=== PATIENT | female | born 1945 | race Caucasian/White ===

== ENCOUNTER 2016-09-10 13:10 | Inpatient (IN) | payer MEDICARE ==
[~2016-09-10] VITALS: Ht 165.1 cm; Wt 77.7 kg
[2016-09-10] VITALS (7 sets, daily range): BP systolic 127–160; BP diastolic 66–95
[2016-09-10] MEDS ORDERED: LABETALOL HCL 20 MG/4 ML VIAL ONE (13:31)
--- NOTE | 2016-09-10 13:34 | Diagnostic Imaging Report ---
INDICATION: Left-sided weakness and facial droop for one hour. DISCUSSION: Single portable upright view of the chest was obtained, comparison 11/24/2007. Underlying COPD is noted. Stable normal heart size. No focal consolidation, pleural fluid, or pneumothorax. No acute osseous abnormality. IMPRESSION: 1. Stable changes of COPD. Dictated by: Dictated on workstation # [id number]
[2016-09-10 13:38] LABS: BASOPHILS % (AUTO) 0 % (0-10); EOSINOPHILS # (AUTO) 0.1 10^3/uL (0.0-0.3); EOSINOPHILS % (AUTO) 1 % (0-10); LYMPHOCYTES # (AUTO) 4.1 X 10^3 (1.0-4.0); LYMPHOCYTES % (AUTO) 43 % (12-44); MEAN CORPUSCULAR HEMOGLOBIN 31 PG (25-34); MEAN CORPUSCULAR HGB CONC 34 G/DL (32-36); MEAN CORPUSCULAR VOLUME 91 FL (80-99); MEAN PLATELET VOLUME 9.9 FL (7.4-10.4); MONOCYTES # (AUTO) 0.5 X 10^3 (0.0-1.0); MONOCYTES % (AUTO) 6 % (0-12); NEUTROPHILS # (AUTO) 4.8 X 10^3 (1.8-7.8); NEUTROPHILS % (AUTO) 50 % (42-75); PLATELET COUNT 328 10^3/uL (130-400); RED BLOOD COUNT 4.49 10^6/uL (4.35-5.85); RED CELL DISTRIBUTION WIDTH 12.1 % (10.0-14.5); WHITE BLOOD COUNT 9.5 10^3/uL (4.3-11.0)
--- NOTE | 2016-09-10 13:40 | Diagnostic Imaging Report ---
EXAM: CT head. TECHNIQUE: Noncontrast axial images of the brain were obtained. INDICATION: Head and leg numbness. History of calcified tumor. No prior studies are available for comparison. FINDINGS: There is no intracranial hemorrhage and no brain edema. Patchy areas of periventricular and deep white matter hypodensities are seen compatible with chronic microvascular ischemic changes. There is an extra-axial calcified mass measuring 3.1 x 3.3 x 2.7 cm based on the tentorium slightly projecting into the posterior fossa and along the left occipital lobe with mild mass effect on the left occipital lobe and the left cerebellar hemisphere. No significant edema is identified suggestive of chronicity. No prior studies at our hospital for comparison are available. This is most likely related to a meningioma. No significant soft tissue component is identified with near-complete calcification of the lesion seen. There is evidence of prior surgery to the globes bilaterally. The calvarium and paranasal sinuses appear grossly unremarkable. IMPRESSION: 1. No intracranial hemorrhage. 2. A 3.3-cm calcified mass based on the tentorium with mass effect upon the left occipital lobe and the left cerebellar hemisphere without significant associated edema suggestive of chronicity. No prior studies are available for comparison in our system. Correlate with patient's history and possible outside studies. Dictated by: Dictated on workstation # [id number]
[2016-09-10 13:47] LABS: INR 0.9 (0.8-1.4); PROTHROMBIN TIME PATIENT 11.8 SEC (12.2-14.7)
[2016-09-10 13:57] LABS: ALANINE AMINOTRANSFERASE 16 U/L (0-55); ALBUMIN 3.8 G/DL (3.2-4.5); ANION GAP 13 MMOL/L (5-14); ASPARTATE AMINO TRANSFERASE 11 U/L (5-34); BILIRUBIN,TOTAL 0.4 MG/DL (0.1-1.0); BLOOD UREA NITROGEN 18 MG/DL (7-18); BUN/CREATININE RATIO 25; CALCIUM 9.3 MG/DL (8.5-10.1); CARBON DIOXIDE 22 MMOL/L (21-32); CHLORIDE 102 MMOL/L (98-107); CREATININE SERUM 0.73 MG/DL (0.60-1.30); GFR ESTIMATED > 60; GLUCOSE 119 MG/DL (70-105); POTASSIUM 3.6 MMOL/L (3.6-5.0); SODIUM 137 MMOL/L (135-145); TOTAL PROTEIN 6.8 G/DL (6.4-8.2)
[2016-09-10] MEDS ORDERED: LABETALOL HCL 20 MG/4 ML VIAL IV ONE ×2 (14:00→14:30)
[2016-09-10 14:03] LABS: TROPONIN I < 0.30 NG/ML (<0.30)
[2016-09-10] MEDS ORDERED: niCARdipine IV 50 MG in NS (IVPB) 230 ML IV SCH (14:30)
[2016-09-10] MEDS ORDERED: NS 100 ML (IVPB) BAG IV ONE (14:30)
[2016-09-10] MEDS ORDERED: IOHEXOL 350 MG/ML 100 ML (OMNIPAQUE 350) VIAL IV ONE (14:30)
[2016-09-10] MEDS ORDERED: ALTEPLASE 100 MG/VIAL (ACTIVASE) IV ONE (14:41)
--- NOTE | 2016-09-10 14:56 | ED Neurological Problem ---
General Chief Complaint: Neuro-Stroke Like Symptoms Stated Complaint: POSS STROKE Nursing Triage Note: L SIDED WEAKNESS AND FACIAL DROOP X1 HOUR. PT STATES SHE TOOK ASA 325MG GRADE RECORDER. Nursing Sepsis Screen: No Definite Risk Source: patient, family Exam Limitations: no limitations History of Present Illness Time seen by provider: 13:14 Initial Comments This delightful 71-year-old woman presents to emergency room with left-sided facial numbness and drooping and left upper extremity weakness and discoordination. Last known well time was approximately 12:15. At the time of my assessment NIH stroke score was one for left lower extremity weakness. Patient is markedly hypertensive with systolic blood pressures well over 200 and diastolic blood pressures well over 100. Patient reports a history of calcified meningioma identified many years ago and reportedly stable. Patient has had no neurologic problems until today. She reports recently having a URI and cough and has taken a Z-Brice. Allergies and Home Medications Allergies Uncoded Allergies: MINT (Allergy, Mild, 09/10/16) REPORTS BEING UNABLE TO TOLERATE MINT OR MEDICATION WITH MINT FLAVORING Constitutional: no symptoms reported Eyes: No Symptoms Reported Ears, Nose, Mouth, Throat: no symptoms reported Respiratory: see HPI Cardiovascular: no symptoms reported Gastrointestinal: no symptoms reported Genitourinary: no symptoms reported : No Musculoskeletal: no symptoms reported Skin: no symptoms reported Psychiatric/Neurological: See HPI Endocrine: No Symptoms Reported Past Unkclit-Hbbfww-Xudumb Hx Patient Social History Alcohol Use: Denies Use Recreational Drug Use: No Smoking Status: Never a Smoker Recent Foreign Travel: No Contact w/Someone Who Travel: No Recent Infectious Disease Expo: No Recent Hopitalizations: No Physical Abuse Screen: No Sexual Abuse: No Surgeries HX Surgeries: Yes Surgeries: Renal (Left ureteral stent placement) Cardiovascular Hx Cardiac Disorders: Yes Cardiac Disorders: Hypertension Neurological Hx Neurological Disorders: Yes Neurological Disorders: Brain Tumor (Benign meningioma) Reproductive System : No Genitourinary Hx Genitourinary Disorders: Yes Genitourinary Disorders: Kidney Stones Gastrointestinal Hx Gastrointestinal Disorders: No Musculoskeletal Hx Musculoskeletal Disorders: No Endocrine Hx Endocrine Disorders: No HEENT HX ENT Disorders: No Cancer Hx Cancer: No Psychosocial Hx Psychiatric Problems: No Integumentary HX Skin/Integumentary Disorder: No Physical Exam Vital Signs Vital Sign - Last 12Hours 09/10/16 09/10/16 13:13 13:15 Temp 96.5 Pulse 95 Resp 16 B/P 235/105 Pulse Ox 96 O2 Delivery Nasal Cannula O2 Flow Rate 2 Capillary Refill : Less Than 3 Seconds General Appearance: WD/WN mild distress HEENT: PERRL/EOMI normal ENT inspection pharynx normal Neck: normal inspectionNo carotid bruit Respiratory: lungs clear normal breath sounds no respiratory distress no accessory muscle use Cardiovascular: regular rate, rhythm no edema no murmur Gastrointestinal: normal bowel sounds non tender soft Extremities: normal inspection no pedal edema Neurologic/Psychiatric: alert normal mood/affect oriented x 3 other (Waxing and waning left facial droop, worsening with decrease in blood pressure. Waxing and waning left upper extremity ataxia and weakness, worsening with lower blood pressure. Persistent 4/5 weakness of left lower extremity.) Crainal Nerves: normal hearing PERRL abnormal speech (Speech slowed and slurred slightly when blood pressure was decreased) Coordination/Gait: abnormal gait ABN nose to finger (L) Motor/Sensory: no sensory deficit weak motor strength LUE weak motor strength LLE Skin: normal color warm/dry Stroke NIH Stroke Scale Assessment Select: Initial Level of Consciousness: 0=Alert Level of Consciousness-Questio: 0=Answers both month/age LOC Commands: 0=Performs both tasks Gaze: 0=Normal Visual Calix: 0=No visual loss Facial Movement (Facial Paresi: 0=Normal symmetrical mnt Motor Function-Arms Right: 0=No drift Motor Function-Arms Left: 0=No drift Motor Function-Legs Right: 0=No drift Motor Function-Legs Left: 1=Drift Limb Ataxia: 0=Absent Sensory: 0=Normal:no loss Best Language: 0=No aphasia Dysarthria: 0=Normal Extinction & Inattention: 0=No abnormality NIH Stroke Scale Score: 1 Progress/Results/Core Measures Results/Orders Lab Results Laboratory Tests Test 09/10/16 13:32 09/10/16 13:33 Range/Units Glucometer 110 70-110 MG/DL Activated Partial Thromboplast Time 26 24-35 SEC Alanine Aminotransferase (ALT/SGPT) 16 0-55 U/L Albumin 3.8 3.2-4.5 G/DL Alkaline Phosphatase 86 40-136 U/L Anion Gap 13 5-14 MMOL/L Aspartate Amino Transf (AST/SGOT) 11 5-34 U/L BUN/Creatinine Ratio 25 Basophils # (Auto) 0.0 0.0-0.1 10^3/uL Basophils (%) (Auto) 0 0-10 % Blood Urea Nitrogen 18 7-18 MG/DL Calcium Level 9.3 8.5-10.1 MG/DL Carbon Dioxide Level 22 21-32 MMOL/L Chloride Level 102 98-107 MMOL/L Creatinine 0.73 0.60-1.30 MG/DL D-Dimer 0.45 0.00-0.49 UG/ML Eosinophils # (Auto) 0.1 0.0-0.3 10^3/uL Eosinophils (%) (Auto) 1 0-10 % Estimat Glomerular Filtration Rate > 60 Glucose Level 119 H 70-105 MG/DL Hematocrit 41 35-52 % Hemoglobin 14.0 11.5-16.0 G/DL INR Comment 0.9 0.8-1.4 Lymphocytes # (Auto) 4.1 H 1.0-4.0 X 10^3 Lymphocytes (%) (Auto) 43 12-44 % Mean Corpuscular Hemoglobin 31 25-34 PG Mean Corpuscular Hemoglobin Concent 34 32-36 G/DL Mean Corpuscular Volume 91 80-99 FL Mean Platelet Volume 9.9 7.4-10.4 FL Monocytes # (Auto) 0.5 0.0-1.0 X 10^3 Monocytes (%) (Auto) 6 0-12 % Neutrophils # (Auto) 4.8 1.8-7.8 X 10^3 Neutrophils (%) (Auto) 50 42-75 % Platelet Count 328 130-400 10^3/uL Potassium Level 3.6 3.6-5.0 MMOL/L Prothrombin Time 11.8 L 12.2-14.7 SEC Red Blood Count 4.49 4.35-5.85 10^6/uL Red Cell Distribution Width 12.1 10.0-14.5 % Sodium Level 137 135-145 MMOL/L TSH [place] Testing 1.48 0.35-4.94 UIU/ML Total Bilirubin 0.4 0.1-1.0 MG/DL Total Protein 6.8 6.4-8.2 G/DL Troponin I < 0.30 <0.30 NG/ML White Blood Count 9.5 4.3-11.0 10^3/uL My Orders Orders-ISABEL HARRIS MD Cbc With Automated Diff (09/10/16 13:14) Protime With Inr (09/10/16 13:14) Partial Thromboplastin Time (09/10/16 13:14) Comprehensive Metabolic Panel (09/10/16 13:14) Fibrin Degradation Products (09/10/16 13:14) Troponin I (09/10/16 13:14) Ua Culture If Indicated (09/10/16 13:14) Chest 1 View, Ap/Pa Only (09/10/16 13:14) Ekg Tracing (09/10/16 13:14) Nothing By Mouth (09/10/16 Dinner) Accucheck Stat ONCE (09/10/16 13:14) Saline Lock/Iv-Start (09/10/16 13:14) Saline Lock/Iv-Start (09/10/16 13:14) Vital Signs-Stroke Q1H (09/10/16 13:14) Ct Head Wo-R/O Stroke (09/10/16 13:14) O2 (09/10/16 13:14) Intake & Output 06,14,22 (09/10/16 13:14) Monitor-Rhythm Ecg Trace Only (09/10/16 13:14) Dysphagia Screening Tool (09/10/16 13:14) Labetalol Injection (Normodyne Injection (09/10/16 13:31) Labetalol Injection (Normodyne Injection (09/10/16 14:00) Ct Angio Head/Neck (09/10/16 14:22) Labetalol Injection (Normodyne Injection (09/10/16 14:30) Iohexol Injection (Omnipaque 350 Mg/Ml 1 (09/10/16 14:30) Ns (Ivpb) (Sodium Chloride 0.9% Ivpb Bag (09/10/16 14:30) Ns (Ivpb) (Sodium C... W/Nicardipine Iv (09/10/16 14:30) Alteplase (Activase) (Activase Injection (09/10/16 14:41) Medications Given in ED Vital Signs/I&O Vital Sign - Last 12Hours 09/10/16 09/10/16 13:13 13:15 Temp 96.5 Pulse 95 Resp 16 B/P 235/105 Pulse Ox 96 O2 Delivery Nasal Cannula O2 Flow Rate 2 Blood Pressure Mean: 148 Point of Care Testing Finger Stick Blood Glucose: 110 Progress Note #1: Time: 14:50 Progress Note Initial workup was unremarkable. Meningioma identified on CT is chronic and was present on the MRI from 2005. Findings suggest chronic calcified meningioma with normal surrounding brain tissue. Patient was initially felt to be a poor candidate for TPA because her NIH stroke score was only 1 and symptoms had improved. She also was extremely hypertensive. Dr. Sarmiento at [facility] was contacted and case was reviewed. Dr. Sarmiento suggests treating the blood pressure and testing patient's ambulation. If patient has ambulatory deficit, then TPA should be reconsidered. She suggested getting the systolic blood pressure below 185 but avoiding dropping blood pressure beyond that level. She thinks it is possible patient has had a small lacunar stroke as hypertensive crisis does not normally cause unilateral motor deficits. Patient has received 2 doses of labetalol. Blood pressure has improved some but is still somewhat labile. I have discussed options with the patient and did test her ambulation. She is able to ambulate with assistance but is not safe to ambulate independently. She requires handholding of both hands for stability. Patient and are undecided regarding TPA after discussion of risks and benefits. Patient was sent to CT angiogram and will make a decision upon returning. In the meantime TPA is being mixed and a Nicardipine drip is being prepared by pharmacy. Progress Note #2: Time: 15:44 Progress Note Patient has a Cardene drip infusing. We are still working on titration to bring her blood pressure into acceptable range. Once blood pressure is in acceptable range, we will again have her walk and test her deficits. A determination will be made regarding TPA administration at that time. Case has been reviewed again with Dr. Sarmiento who recommends extending the time frame for treatment to 4.5 hours if needed for TPA administration if she still has a significant ambulatory deficit when blood pressure improves. Progress Note #3: Time: 16:17 Progress Note Blood pressure is now in acceptable range on the Cardene drip. Patient was reevaluated. Her balance and coordination are now actually worse. She is unable to safely ambulate even with assistance. Her repeat NIH stroke score was 5 due to discoordination of the left upper extremity, weakness of the left upper and lower extremity, left-sided facial droop and slight slurring of speech. Multiple blood pressure measurements are now within acceptable range, and TPA has been initiated. We are approximately 4 hours past onset of symptoms. CT angiogram demonstrated no large vessel occlusions. Progress Note #4: Time: 17:15 Progress Note Patient's blood pressure has decreased significantly. Cardene drip continues to be titrated back and is now at 3 mg per hour. Symptoms have significantly improved. She now has near full strength in her left arm and leg. Speech is crisp and rapid. ECG Initial ECG Impression Date: Sep 10, 2016 Initial ECG Impression Time: 15:20 Initial ECG Rate: 85 Initial ECG Rhythm: Normal Sinus Initial ECG Intervals: Normal Initial ECG Impression: Normal Comment Normal sinus rhythm with no ST elevation or depression. No abnormal intervals or axis deviation. LVH. Diagnostic Imaging Diagonstic Imaging: CT Plain Films/CT/US/NM/MRI: head Comments CT head viewed by me and discussed with the radiologist. Report reviewed. See report below: NAME: VAHE ZULETA [facility] REC#: [id number] PT STATUS: REG ER : 1945 PHYSICIAN: ISABEL HARRIS MD ADMIT DATE: 09/10/16/ER Signed Date of Exam:09/10/16 CT HEAD WO-R/O STROKE EXAM: CT head. TECHNIQUE: Noncontrast axial images of the brain were obtained. INDICATION: Head and leg numbness. History of calcified tumor. No prior studies are available for comparison. FINDINGS: There is no intracranial hemorrhage and no brain edema. Patchy areas of periventricular and deep white matter hypodensities are seen compatible with chronic microvascular ischemic changes. There is an extra-axial calcified mass measuring 3.1 x 3.3 x 2.7 cm based on the tentorium slightly projecting into the posterior fossa and along the left occipital lobe with mild mass effect on the left occipital lobe and the left cerebellar hemisphere. No significant edema is identified suggestive of chronicity. No prior studies at our hospital for comparison are available. This is most likely related to a meningioma. No significant soft tissue component is identified with near-complete calcification of the lesion seen. There is evidence of prior surgery to the globes bilaterally. The calvarium and paranasal sinuses appear grossly unremarkable. IMPRESSION: 1. No intracranial hemorrhage. 2. A 3.3-cm calcified mass based on the tentorium with mass effect upon the left occipital lobe and the left cerebellar hemisphere without significant associated edema suggestive of chronicity. No prior studies are available for comparison in our system. Correlate with patient's history and possible outside studies. Dictated by: Dictated on workstation # [id number] Dict: 09/10/16 1326 Trans: 09/10/16 [phone] Interpreted by: ORALIA CLINE MD Electronically signed by: ORALIA CLINE MD 09/10/16 1423 Diagonstic Imaging: Xray Plain Films/CT/US/NM/MRI: chest Comments NAME: VAHE ZULETA [facility] REC#: [id number] PT STATUS: REG ER : 1945 PHYSICIAN: ISABEL HARRIS MD ADMIT DATE: 09/10/16/ER Draft Date of Exam:09/10/16 CHEST 1 VIEW, AP/PA ONLY INDICATION: Left-sided weakness and facial droop for one hour. DISCUSSION: Single portable upright view of the chest was obtained, comparison 11/24/2007. Underlying COPD is noted. Stable normal heart size. No focal consolidation, pleural fluid, or pneumothorax. No acute osseous abnormality. IMPRESSION: 1. Stable changes of COPD. Dictated on workstation # [id number] Dict: 09/10/16 1331 Trans: 09/10/16 [phone] Interpreted by: LUCIA FOWLER MD Diagonstic Imaging: CT Plain Films/CT/US/NM/MRI: other (CT angiogram head and neck) Comments CT angiogram head and neck viewed by me and report reviewed. See report below: NAME: VAHE ZULETA [facility] REC#: [id number] PT STATUS: REG ER : 1945 PHYSICIAN: ISABEL HARRIS MD ADMIT DATE: 09/10/16/ER Signed Date of Exam:09/10/16 CT ANGIO HEAD/NECK PROCEDURE: CT angiography of the head and CT angiography of the neck with and without contrast. TECHNIQUE: Contiguous noncontrast images were obtained from the skull base through the vertex. After intravenous contrast administration, helical CT angiography of the neck was performed. Source data was reformatted into multiple MIP projections. Delayed post contrast acquisition was also obtained. INDICATION: Left-sided numbness for 2-1/2 hours. 75 mL of Omnipaque 350 is administered intravenously. FINDINGS: CT of the neck: The imaging starts just distal to the origin of the great vessels, which is not evaluated on this exam. Distal to the origin of the brachiocephalic artery, left subclavian and the left common carotid arteries are all patent. The right subclavian artery is patent. The right common carotid artery demonstrates a calcified plaque at the bifurcation with no significant stenosis. The internal carotid artery is patent with no significant stenosis bilaterally. Bilateral proximal mild plaque is seen. The external carotid artery is patent on both sides. The right vertebral artery is patent. The left vertebral artery is nondominant and small in size with a very tiny remaining left vertebral artery distal to the left PICA takeoff seen. The thyroid gland demonstrates slight heterogeneity with a 1 cm hypodense nodule seen in the left thyroid lobe, nonspecific. The submandibular glands and the parotid glands appear symmetric. The mucosal pharyngeal space appears symmetric. No significant lymphadenopathy in the neck identified. The osseous structures demonstrate mild to moderate degenerative changes more prominent in the mid and lower cervical spine levels. CTA head: There is a hypoplastic P1 segment of the right posterior cerebral artery with a well formed right PICA from the anterior circulation supplying the right TRACKWALKER. The left TRACKWALKER demonstrates a relatively small P1 segment with significant contribution of left PICA to the left TRACKWALKER perfusion. The internal carotid arteries intracranial segments demonstrate mild atherosclerotic plaque in the cavernous segments bilaterally without significant stenosis. The anterior cerebral arteries are patent. The middle cerebral arteries are patent. No aneurysm is seen. There is a calcified mass centered at the tentorium to the left of the midline measuring 3 cm with mass effect upon the adjacent left occipital lobe and left cerebellar hemisphere compatible with a calcified meningioma. There is no significant soft tissue component within it identified. Periventricular and deep white matter areas of hypodensity are noted and could be related to chronic microvascular ischemic changes. IMPRESSION: CTA neck: Mild atherosclerotic plaque at the carotid bifurcation bilaterally with no significant stenosis. The arch and the origin of the great vessels are not included to this exam. CTA head: 1. No significant stenosis, vascular occlusion or aneurysm seen in the central intracranial vessels. 2. A 3 cm calcified mass based on the tentorium with mass effect on the left occipital lobe and left cerebellar hemisphere is likely a meningioma. Dictated by: Dictated on workstation # [id number] Dict: 09/10/16 1520 Trans: 09/10/16 1552 [facility] [id number] Interpreted by: ORALIA CLINE MD Electronically signed by: ORALIA CLINE MD 09/10/16 1555 Critical Care Note Critical Care Start Time: 13:14 Stop Time: 17:00 Departure Impression Impression: Primary Impression: CVA (cerebral vascular accident) Qualified Code: I63.9 - Cerebral infarction, unspecified Additional Impressions: Left-sided weakness Hypertensive emergency Disposition: 09 ADMITTED INPATIENT Condition: Improved Decision to Admit Reason: Admit from ER (General) Decision to Admit/Date: Sep 10, 2016 Time/Decision to Admit Time: 14:30 Departure-Patient Inst. Referrals: NO,LOCAL PHYSICIAN (PCP/Family) Primary Care Physician ISABEL HARRIS MD Sep 10, 2016 14:56
--- NOTE | 2016-09-10 15:48 | Diagnostic Imaging Report ---
PROCEDURE: CT angiography of the head and CT angiography of the neck with and without contrast. TECHNIQUE: Contiguous noncontrast images were obtained from the skull base through the vertex. After intravenous contrast administration, helical CT angiography of the neck was performed. Source data was reformatted into multiple MIP projections. Delayed post contrast acquisition was also obtained. INDICATION: Left-sided numbness for 2-1/2 hours. 75 mL of Omnipaque 350 is administered intravenously. FINDINGS: CT of the neck: The imaging starts just distal to the origin of the great vessels, which is not evaluated on this exam. Distal to the origin of the brachiocephalic artery, left subclavian and the left common carotid arteries are all patent. The right subclavian artery is patent. The right common carotid artery demonstrates a calcified plaque at the bifurcation with no significant stenosis. The internal carotid artery is patent with no significant stenosis bilaterally. Bilateral proximal mild plaque is seen. The external carotid artery is patent on both sides. The right vertebral artery is patent. The left vertebral artery is nondominant and small in size with a very tiny remaining left vertebral artery distal to the left PICA takeoff seen. The thyroid gland demonstrates slight heterogeneity with a 1 cm hypodense nodule seen in the left thyroid lobe, nonspecific. The submandibular glands and the parotid glands appear symmetric. The mucosal pharyngeal space appears symmetric. No significant lymphadenopathy in the neck identified. The osseous structures demonstrate mild to moderate degenerative changes more prominent in the mid and lower cervical spine levels. CTA head: There is a hypoplastic P1 segment of the right posterior cerebral artery with a well formed right PICA from the anterior circulation supplying the right MANAGER RAIL. The left MANAGER RAIL demonstrates a relatively small P1 segment with significant contribution of left PICA to the left MANAGER RAIL perfusion. The internal carotid arteries intracranial segments demonstrate mild atherosclerotic plaque in the cavernous segments bilaterally without significant stenosis. The anterior cerebral arteries are patent. The middle cerebral arteries are patent. No aneurysm is seen. There is a calcified mass centered at the tentorium to the left of the midline measuring 3 cm with mass effect upon the adjacent left occipital lobe and left cerebellar hemisphere compatible with a calcified meningioma. There is no significant soft tissue component within it identified. Periventricular and deep white matter areas of hypodensity are noted and could be related to chronic microvascular ischemic changes. IMPRESSION: CTA neck: Mild atherosclerotic plaque at the carotid bifurcation bilaterally with no significant stenosis. The arch and the origin of the great vessels are not included to this exam. CTA head: 1. No significant stenosis, vascular occlusion or aneurysm seen in the central intracranial vessels. 2. A 3 cm calcified mass based on the tentorium with mass effect on the left occipital lobe and left cerebellar hemisphere is likely a meningioma. Dictated by: Dictated on workstation # [id number]
[2016-09-10] MEDS ORDERED: CATHETER FLUSH 10 ML SYR IV PRN (19:00)
[2016-09-10] MEDS ORDERED: ACETAMINOPHEN 650 MG SUPP (TYLENOL) PR PRN (19:00)
[2016-09-10] MEDS ORDERED: ONDANSETRON 4 MG/2 ML (SDV) Z0FRAN IV PRN (19:00)
[2016-09-10] MEDS ORDERED: ACETAMINOPHEN 325 MG TABLET/CAPLET (TYLENOL) PO PRN (19:00)
[2016-09-10] MEDS ORDERED: MILK OF MAGNESIA 400 MG/5 ML 30 ML UDC PO PRN (19:15)
[2016-09-10] MEDS: FAMOTIDINE 20 MG (PEPCID) TABLET PO SCH (20:31)
[2016-09-10] MEDS: DOCUSATE SODIUM 100 MG (COLACE) CAP PO SCH (20:31)
[2016-09-10] MEDS: FAMOTIDINE 20MG/2ML IV (PEPCID) IV SCH (20:32)
[2016-09-10] MEDS ORDERED: BISACODYL 10 MG SUPP (DULCOLAX) PR PRN (21:00)
[2016-09-10] MEDS: CATHETER FLUSH 10 ML SYR IV SCH (21:08)
[2016-09-10] MEDS: niCARdipine 50 MG/NS 250 ML IV DRIP IV SCH ×2 (22:00)
[2016-09-11] VITALS (18 sets, daily range): BP systolic 120–183; BP diastolic 63–98
[2016-09-11 04:42] LABS: BASOPHILS % (AUTO) 0 % (0-10); EOSINOPHILS # (AUTO) 0.1 10^3/uL (0.0-0.3); EOSINOPHILS % (AUTO) 1 % (0-10); LYMPHOCYTES # (AUTO) 3.3 X 10^3 (1.0-4.0); LYMPHOCYTES % (AUTO) 42 % (12-44); MEAN CORPUSCULAR HEMOGLOBIN 31 PG (25-34); MEAN CORPUSCULAR HGB CONC 35 G/DL (32-36); MEAN CORPUSCULAR VOLUME 91 FL (80-99); MEAN PLATELET VOLUME 9.9 FL (7.4-10.4); MONOCYTES # (AUTO) 0.6 X 10^3 (0.0-1.0); MONOCYTES % (AUTO) 7 % (0-12); NEUTROPHILS % (AUTO) 50 % (42-75); PLATELET COUNT 310 10^3/uL (130-400); RED BLOOD COUNT 4.09 10^6/uL (4.35-5.85); RED CELL DISTRIBUTION WIDTH 12.3 % (10.0-14.5)
[2016-09-11 04:50] LABS: PROTHROMBIN TIME PATIENT 13.1 SEC (12.2-14.7)
[2016-09-11 05:04] LABS: ANION GAP 11 MMOL/L (5-14); BLOOD UREA NITROGEN 14 MG/DL (7-18); BUN/CREATININE RATIO 22; CALCIUM 9.3 MG/DL (8.5-10.1); CARBON DIOXIDE 23 MMOL/L (21-32); CHLORIDE 103 MMOL/L (98-107); CHOLESTEROL 183 MG/DL (< 200); CREATININE SERUM 0.64 MG/DL (0.60-1.30); DIRECT LDL 128 MG/DL (1-129); GFR ESTIMATED > 60; GLUCOSE 137 MG/DL (70-105); MAGNESIUM 1.5 MG/DL (1.8-2.4); PHOSPHORUS 3.1 MG/DL (2.3-4.7); POTASSIUM 3.3 MMOL/L (3.6-5.0); SODIUM 137 MMOL/L (135-145); TRIGLYCERIDES 118 MG/DL (<150); VLDL CHOLESTEROL 24 MG/DL (5-40)
[2016-09-11] MEDS ORDERED: NS IV 500 ML 500 ML IV ONE (05:30)
[2016-09-11] MEDS: POTASSIUM CL 10MEQ/50ML IVPB 50 ML IV SCH ×4 (05:46→08:48)
[2016-09-11] MEDS: MAGNESIUM 1 GM/100 ML IVPB 100 ML IV SCH ×2 (05:46→06:42)
[2016-09-11] MEDS: CATHETER FLUSH 10 ML SYR IV SCH ×3 (05:46→20:45)
[2016-09-11] MEDS ORDERED: POTASSIUM CL 10MEQ/50ML IVPB 50 ML IV SCH ×2 (06:00)
[2016-09-11] MEDS ORDERED: MAGNESIUM 1 GM/100 ML IVPB 100 ML IV SCH ×2 (06:00)
[2016-09-11] MEDS ORDERED: KCL 20 MEQ TAB (K-DUR) PO SCH ×2 (06:00)
--- NOTE | 2016-09-11 06:32 | Pulmonary Consultation ---
History of Present Illness History of Present Illness Date of Consultation 09/11/16 06:26 Date of Admission History of Present Illness 71 yo presented to ED secondary to L sided weakness and facial droop. Initial NIH was 5 she is s/p TPA and its now 0. PT did have a swallow eval and she passed. She is scheduled for MRI 24hrs post TPA. Pt/OT is consulted. Pt is doing well no complications noted. I am consulted for ICU management . Allergies and Home Medications Allergies Uncoded Allergies: MINT (Allergy, Mild, 09/10/16) REPORTS BEING UNABLE TO TOLERATE MINT OR MEDICATION WITH MINT FLAVORING Past Gtqfgou-Peasel-Uhycjc Hx Patient Social History Alcohol Use: Denies Use Recreational Drug Use: No Smoking Status: Never a Smoker Recent Foreign Travel: No Contact w/Someone Who Travel: No Recent Infectious Disease Expo: No Recent Hopitalizations: No Physical Abuse Screen: No Sexual Abuse: No Seasonal Allergies Seasonal Allergies: No Cardiovascular Hx Cardiac Disorders: Yes Cardiac Disorders: Hypertension Neurological Hx Neurological Disorders: Yes Neurological Disorders: Brain Tumor Reproductive System Female Reproductive Disorders: Denies Genitourinary Genitourinary Disorders: Kidney Stones HEENT HEENT Disorders: Cataract Integumentary Skin/Integumentary Disorders: Eczema Blood Transfusions Adverse Reaction to a Blood Tr: No Exam Exam Vital Signs Date Time Temp Pulse Resp B/P Pulse Ox O2 Delivery O2 Flow Rate FiO2 09/11/16 06:00 79 12 145/78 97 Room Air 09/11/16 05:00 72 12 120/63 92 Room Air 09/11/16 04:00 97.4 68 11 152/73 96 Room Air 09/11/16 04:00 97 Room Air 09/11/16 03:00 67 12 120/64 93 Room Air 09/11/16 02:00 73 20 149/77 96 Room Air 09/11/16 01:00 73 16 135/64 93 Room Air 09/11/16 01:00 73 09/11/16 00:00 97 Room Air 09/11/16 00:00 98.0 81 15 129/79 94 Room Air 09/10/16 23:00 94 11 147/78 94 Room Air 09/10/16 22:00 80 11 148/69 97 Room Air 09/10/16 21:00 74 14 141/69 95 Room Air 09/10/16 20:00 98.3 82 10 127/69 94 Room Air 09/10/16 20:00 97 Room Air 09/10/16 19:51 Room Air 09/10/16 19:00 93 16 150/66 94 Room Air 09/10/16 19:00 85 09/10/16 18:00 87 12 158/95 96 Room Air 09/10/16 17:55 92 20 160/83 93 Room Air 09/10/16 17:50 96 Room Air 09/10/16 17:35 85 16 96 Room Air 09/10/16 13:15 96 Nasal Cannula 2 09/10/16 13:13 96.5 95 16 235/105 I & O 09/11/16 07:00 Intake Total 125 ml Output Total 730 ml Balance -605 ml General Appearance: No Apparent Distress WD/WN HEENT: PERRL/EOMI Pharynx Normal Neck: Full Range of Motion Non Tender Supple Respiratory: Chest Non Tender No Accessory Muscle Use No Respiratory Distress Decreased Breath Sounds Capillary Refill: Less Than 3 Seconds Gastrointestinal: normal bowel sounds non tender soft Extremity: Normal Capillary Refill Normal Inspection Normal Range of Motion Neurologic/Psychiatric: Alert Oriented x3 Skin: Normal Color Warm/Dry Lymphatic: No Adenopathy Results Lab Laboratory Tests 09/10/16 13:33 09/11/16 04:25 Assessment/Plan Assessment/Plan CVA S/P TPA -Need to start plavix 24hrs after TPA -she passed swallow eval -check echo and carotid dopplers -MRI head scheduled for later today HTN -OFF Cardene since 2029 hypomag and hypokalemia -replace Clinical Quality Measures DVT/VTE Risk/Contraindication: Risk Factor Score Per Nursin RFS Level Per Nursing on Admit: 2=Moderate SUPRIYA COTTRELL DO Sep 11, 2016 06:32
[2016-09-11] MEDS: niCARdipine 50 MG/NS 250 ML IV DRIP IV SCH ×2 (08:00)
--- NOTE | 2016-09-11 08:20 | Diagnostic Imaging Report ---
PROCEDURE: US Carotid Duplex Bilateral. TECHNIQUE: Multiple real-time grayscale images were obtained over the carotid arteries in various projections bilaterally. Additional duplex Doppler and color Doppler images were also obtained. INDICATION: Arm weakness. CVA. Left facial weakness. FINDINGS: Grayscale images demonstrate mild focal plaque seen at the carotid bifurcation with proximal plaque in the ICA on the left of mild degree and moderate focal plaque in the proximal right ICA. Peak systolic velocities in the right ICA are 109, 96 and 81 CM per second, and on the left 109, 115 and 112 CM per second. ICA over CCA ratios are 1.2 on the right and up to 0.9 on the left. Color Doppler flow demonstrates patency of the common, internal and external carotid arteries bilaterally. There is antegrade flow in the vertebral arteries seen on both sides. IMPRESSION: Atherosclerotic plaque is seen in the proximal internal carotid arteries on both sides more prominent on the right. The flow velocities however demonstrate estimated underlying stenosis in the range of 0-40% bilaterally. Dictated by: Dictated on workstation # [id number]
[2016-09-11] MEDS: FAMOTIDINE 20 MG (PEPCID) TABLET PO SCH (08:32)
[2016-09-11] MEDS: FAMOTIDINE 20MG/2ML IV (PEPCID) IV SCH (08:33)
[2016-09-11] MEDS: DOCUSATE SODIUM 100 MG (COLACE) CAP PO SCH ×2 (08:33→20:39)
--- NOTE | 2016-09-11 08:33 | Diagnostic Imaging Report ---
INDICATION: Shortness of breath. EXAMINATION: Portable chest at 5:21 AM. FINDINGS: The heart size and pulmonary vascularity are normal. The lungs are clear. There are no effusions or pneumothoraces. IMPRESSION: No acute abnormalities in the chest. Dictated by: Dictated on workstation # [id number]
[2016-09-11] MEDS ORDERED: FLU TRIvalent (5 YOA+) 2016-17 (AFLURIA) 0.5 ML IM ONE (10:45)
--- NOTE | 2016-09-11 10:50 | History & Physical-Hospitalist ---
HPI History of Present Illness: HPI/Chief Complaint CC: Stroke with left sided weakness. 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 She took an Aspirin at home and when she arrived in the ER her BP was 235/ 105. stroke center was contacted, CT scan revealed no bleed, so Cardene drip was initiated but change of status with increasing stroke score occurred requiring additional notification to Dr. Sarmiento which met criteria for TPA which she received without complication. Dr. Martell Review: Pt had a stroke score of 0-1 this morning. When BP was lowered, symptoms worsened. BP was in the 230s previously. Pt was not walking well. 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 Dr. Girard ordered MRI without contrast, but did not order Aspirin or Plavix. Cardiology is not currently on board. Dr. Girard mentioned moving pt to 4 th floor after MRI. TPA obtained at 1614 last night. Pt will need to DC on statin. Pt had Pepsin po this morning, and was stable. Patient Interview: Pt states that her PCP was Dr. Martell previously, and she does not currently have a PCP. Pt states that she feels discouraged and tired. Pt is able to swallow without complications. Dr. Acharya informs pt that cardiology will be consulted. Pt states that she has a brain tumor. Physical exam was stable. Pt has a cough. Pt states that her left side still feels weak, and she feels that she does not have full control of her left hand or foot. Dr. Acharya informs pt that she will likely move to 4 th floor today, and may soon move to in-patient rehab. BP: 157/86 during visit Scribed by Les Foster under the direct supervision of Dr. Acharya. Source: patient Date Seen 09/11/16 Attending Physician Daniel Martell MD PCP No,Local Physician Referring Physician Date of Admission Sep 10, 2016 at 16:49 Home Medications & Allergies Home Medications Reviewed patient Home Medication Reconciliation Form Allergies Uncoded Allergies: MINT (Allergy, Mild, 09/10/16) REPORTS BEING UNABLE TO TOLERATE MINT OR MEDICATION WITH MINT FLAVORING Past Ulqdlpx-Yitvyk-Ojejdg Hx Patient Social History Marrital Status: Employed/Student: retired Alcohol Use: Denies Use Recreational Drug Use: No Smoking Status: Never a Smoker Physical Abuse Screen: No Sexual Abuse: No Recent Foreign Travel: No Contact w/other who traveled: No Recent Hopitalizations: No Recent Infectious Disease Expo: No Seasonal Allergies Seasonal Allergies: No Surgeries HX Surgeries: Yes Respiratory Hx Respiratory Disorders: No Cardiovascular Hx Cardiovascular Disorders: Yes Cardiac Disorders: Hypertension Neurological Hx Neurological Disorders: Yes Neurological Disorders: Brain Tumor Reproductive System Female Reproductive Disorders: Denies Genitourinary Genitourinary Disorders: Kidney Stones Gastrointestinal Hx Gastrointestinal Disorders: Yes Gastrointestinal Disorders: Chronic Constipation Musculoskeletal Hx Musculoskeletal Disorders: Yes Musculoskeletal Disorders: Arthritis Endocrine Hx Endocrine Disorders: No HEENT HX ENT Disorders: No HEENT Disorders: Cataract Cancer Hx Cancer: No Psychosocial Hx Psychiatric Problems: No Integumentary Skin/Integumentary Disorders: Eczema Blood Transfusions Adverse Reaction to a Blood Tr: No Review of Systems Constitutional: see HPI weakness EENTM: no symptoms reported Respiratory: no symptoms reported Cardiovascular: no symptoms reported Gastrointestinal: no symptoms reported Genitourinary: no symptoms reported Musculoskeletal: no symptoms reported Skin: no symptoms reported Psychiatric/Neurological: No Symptoms Reported Tingling Weakness All Other Systems Reviewed Negative Unless Noted: Yes Physical Exam Physical Exam Vital Signs Vital Sign - Last 12Hours 09/10/16 09/10/16 13:13 13:15 Temp 96.5 Pulse 95 Resp 16 B/P 235/105 Pulse Ox 96 O2 Delivery Nasal Cannula O2 Flow Rate 2 Capillary Refill : Less Than 3 Seconds General Appearance: No Apparent Distress WD/WN Chronically ill Eyes: Bilateral Eye Normal Inspection, Bilateral Eye PERRL HEENT: PERRL/EOMI Normal ENT Inspection Pharynx Normal Neck: Full Range of Motion Normal Inspection Non Tender Supple Carotid Bruit Respiratory: Chest Non Tender Lungs Clear Normal Breath Sounds No Accessory Muscle Use No Respiratory Distress Cardiovascular: Regular Rate, Rhythm No Edema No Gallop No JVD No Murmur Normal Peripheral Pulses Gastrointestinal: Normal Bowel Sounds No Organomegaly No Pulsatile Mass Non Tender Soft Back: Normal Inspection No CVA Tenderness No Vertebral Tenderness Extremity: Normal Capillary Refill Normal Inspection Normal Range of Motion Non Tender No Calf Tenderness No Pedal Edema Neurologic/Psychiatric: Alert Oriented x3 No Motor/Sensory Deficits Normal Mood/Affect Motor Weakness (left hand and left foot weakness fine motor skills 4.5/5) Skin: Normal Color Warm/Dry Lymphatic: No Adenopathy Results Results/Procedures Lab Laboratory Tests 09/10/16 13:33 09/11/16 04:25 Assessment/Plan Admission Diagnosis Assessment: Acute CVA with left sided weakness and facial droop s/p TPA with major improvement in deficits HTN OOC due to #1 Hx of brain tumor Hyperlipidemia Hypokalemia Assessment and Plan Plan: MRI this afternoon Consult Cardiology In-patient rehab eval SS consult Statin Clinical Quality Measures DVT/VTE Risk/Contraindication: Risk Factor Score Per Nursin RFS Level Per Nursing on Admit: 2=Moderate JOSE A ACHARYA DO Sep 11, 2016 10:49
--- NOTE | 2016-09-11 10:56 | ST Dysphagia Evaluation ---
Speech Evaluation-General Medical Diagnosis Suspected CVA Onset Date: Sep 10, 2016 Therapy Diagnosis Therapy Diagnosis: Mild Oral Dysphagia Precautions Precautions/Isolations: Fall Prevention, Standard Precautions Referral Referring Physician: Dr. Daniel Martell Reason for Referral: Evaluation/Treatment Clinical Bedside Swallow Evaluation Medical History Pertinent Medical History: HTN Meningioma (left occipital, left cerebellar)- 2005 Reviewed History: Yes Speech PLF/Current-Dysphagia Prior Level of Function The patient denied swallowing difficulties, odynophagia, or signs/symptoms of aspiration with any food or liquid consistency she currently consumes. Subjective The patient was recently admitted to [facility] following a suspected stroke. Upon arrival, the patient demonstrated elevated blood pressure, left sided weakness, and a slight left facial droop. TPA was administered with mild improvement of her initial symptoms noted. The patient was agreeable to a dysphagia evaluation as a part of the stroke protocol. Cognitive Status Patient Orientation: Person, Place, Time, Situation Oral Motor Skills Dentition: Natural Current Food Consistancy: Regular, Thin Liquids Ability to Follow Directions: Excellent Heart Healthy Oral Expression Ability: No Impairment Voice Voice Phonatory-Based Quality: Normal Voice Pitch: Normal Voice Loudness: Normal Face Facial Symmetry: Asymmetrical (Minimal left facial droop) Oral-Facial Assessment Oral-Facial Dentition: Normal Labial Seal Description: Droops Left Smile: Normal Puff Cheeks: Reduced Strength (Mildly reduced strength (left)) Lingual Protrusion: Normal Lingual ROM: Normal Lingual Strength: Normal Pharynx Velopharyngeal Move.: Normal Volitional Dry Swallow: Yes Dysphagia Evaluation Consistencies Presented: Regular, Thin Liquid (Via Straw) While no oral impairments were noted throughout the evaluation, the patient did report frequent biting of left lower lip. No pharyngeal impairments were noted throughout the evaluation. - No signs/symptoms of aspiration or laryngeal penetration were noted throughout the evaluation with any consistency tested. Dietary Recommendations: Regular Liquid Recommendations: Thin Swallowing Precautions: Pocketing, Small Bites and Sips, Sitting Upright 90 Degrees, Left Tongue Sweep The patient was encouraged to present food and liquid to the right oral cavity due to the weakness demonstrated on the left. Additionally, the clinician recommended the patient complete an anterior, left, buccal tongue sweep post meals to ensure pocketing does not occur. Dysphagia Evaluation Summary The patient demonstrated mild oral dysphagia characterized by reduced labial strength and coordination (left). Speech-Plan Treatment Plan Speech Therapy Treatment Plan: Discontinue ST (Eval, only.) Rehab Potential: Good Safety Risks/Education Teaching Recipient: Patient, Significant Other Response to Teaching: Verbalize Understanding Education Topics Provided: Results, Recommendations, Swallowing Strategies Time Speech Therapy Time In: 10:00 Speech Therapy Time Out: 10:20 Total Billed Time: 20 Billed Treatment Time NelyTABITHA ELIZABETH ST Sep 11, 2016 10:56
--- NOTE | 2016-09-11 11:48 | Physical Therapy Evaluation ---
PT Evaluation-General Medical Diagnosis Admission Date Sep 10, 2016 at 16:49 Medical Diagnosis: Suspected CVA Onset Date: Sep 10, 2016 Therapy Diagnosis Therapy Diagnosis: impaired mobility, strength, coordination, balance, endurance Height/Weight Height (Feet): 5 Height (Inches): 5.00 Weight (Pounds): 174 Weight (Ounces): 1.0 Precautions Precautions/Isolations: Fall Prevention, Standard Precautions Referral Physician: Daniel Martell MD Reason for Referral: Evaluation/Treatment Medical History Pertinent Medical History: HTN Additional Medical History brain tumor, kidney stones, cataracts, eczema Current History patient went to the ER with left sided weakness Reviewed History: Yes Social History Home: Single Level Current Living Status: Spouse Entry Into Home: Level Entry Prior/Core FIM Prior Level of Function Functional Otter Measure 0=Not Assessed/NA 4=Minimal Assistance 1=Total Assistance 5=Supervision or Setup 2=Maximal Assistance 6=Modified Otter 3=Moderate Assistance 7=Complete Otter Bed Mobility: 7 Transfers (B,C,W/C) (FIM): 7 Gait: 7 PT Evaluation-Current Subjective Patient in bed pre treatment, will be co-treating with OT due to recent CVA, decreased endurance, and still on TPA. Pain Numeric Pain Scale: 0-No Pain Pt/Family Goals to be independent at home Objective Patient Orientation: Person, Place, Situation Attachments: IV ROM/Strength ROM Lower Extremities WNL Strenght Lower Extremities right lower extremity (hip flexion 3/5, knee flexion 4/5, knee extension 4-/5, dorsiflexion 4/5), left lower extremity (hip flexion 3/5, knee flexion 3+/5, knee extension 3+/5, dorsiflexion 3/5) Integumentary/Posture Bowel Incontinence: No Bladder Incontinence: No Neuromuscular (Tone, Coordination, Reflexes) Patient has impaired coordination of left lower extremity, uncoordinated movement with ambulation and transfers. She states she has some decreased sensation on the left side of her face. She does seem to have a slight facial droop on the left side at rest, but smile is equal each side, no tongue deviation. She does seem to have possible decreased peripheral vision on the left and slight decreased tracking ability. Sensory Vision: Wears Glasses Hearing: Impaired Sensation Right Lower Extremit: Intact Sensation Left Lower Extremity: Intact Transfers Functional Otter Measure 0=Not Assessed/NA 4=Minimal Assistance 1=Total Assistance 5=Supervision or Setup 2=Maximal Assistance 6=Modified Otter 3=Moderate Assistance 7=Complete Otter Transfers (B, C, W/C) (FIM): 4 Scootin Rollin Supine to/from Sit: 4 (min A) Sit to/from Stand: 4 (min A) patient leans to the left upon standing, she also gets dizzy going from supine to sit and sit to stand but it resolves fairly fast Gait Mode of Locomotion: Walk Anticipated Mode of Locomotion: Walk Gait (FIM): 1 Distance: 3' Gait Level of Assist: 4 (Barby) Gait Persons Needed: 1 Gait Assistive Device: Handheld Assist Comments/Gait Description patient ambulated sideways a few feet at the edge of the bed Balance Sitting Static: Poor Sitting Dynamic: Poor Standing Static: Poor Standing Dynamic: Poor Assessment/Needs Patient has impairments in general mobility, sitting and standing balance, coordination on the left side, strength, and endurance. It was limited on how much mobility could be tested on patient because of TPA and her BP was elevated , at 186/87 on average. 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 Shelter Goals PT Shelter Goals Time Frame: Sep 18, 2016 Transfers (B,C,W/C) (FIM): 4 (CGA) Gait (FIM): 2 Distance: 50' Gait Level of Assist: 4 (CGA) Gait Assistive Device: FWW PT Plan Problem List Problem List: Activity Tolerance, Functional Strength, Safety, Balance, Gait, Transfer, Bed Mobility Treatment/Plan Treatment Plan: Continue Plan of Care Treatment Plan: Bed Mobility, Education, Functional Activity Laurence, Functional Strength, Gait, Safety, Therapeutic Exercise, Transfers Treatment Duration: Sep 18, 2016 # of days/week 5-6 Visits Per Week: 10-11 Minutes/Day (M-F): 15-30 Minutes/Day (Sat/Hankins): 15-30 Pt/Family Agrees w/Plan: Yes Safety Risks/Education Patient Education: Gait Training, Transfer Techniques, Safety Issues Teaching Recipient: Patient Teaching Methods: Demonstration, Discussion Response to Teaching: Reinforcement Needed Discharge Recommendations Plan Patient will perform bed mobility and transfer training, balance and endurance training, functional strengthening, stair training, gait training, education, to improve functional mobility and independence at home. Therapy D/C Recommendations: Home w/ Family Support Time/GCodes Time In: 1115 Time Out: 1140 Total Billed Treatment Time: 25 Total Billed Treatment 1 visit EVL 15 min Patient was seen from [id number], PT eval was from [id number], OT eval was from [id number]. OT worked on UE strength testing, dressing and PT performed LE strength testing and mobility. MIREYA CORREIA PT Sep 11, 2016 11:48
--- NOTE | 2016-09-11 13:09 | Consultation-Cardiology ---
HPI-Cardiology Cardiology Consultation Date of Consultation 09/11/16 Date of Admission Indication: CVA HPI Patient is a very pleasant 71 y/o female with history of HTN, HLP. Presented to the ER yesterday morning with complaints of left sided weakness and speech difficulties, onset approx 1 hour prior to arrival to ED. Patient took ASA 325mg at home. Was given tPA in ER. Continues to have left sided facial drooping with left sided weaknes. Denies any CP, dyspnea, dizziness, lightheadedness, syncope or peripheral edema. Denies any PMH of CAD or arrhythmia. Patient was seen and evaluated with Rubina, she 71-year-old lady with history of hypertension and hyperlipidemia, presented with left sided weakness and hemiplegia in addition to facial droop. Given TPA, improved somewhat, still having weakness on the left side. Still having some facial droop. Denied any similar episode in the past. Denied any palpitation, chest pain, syncope or near syncopal episodes. Has been compliant with her medications. She has been under significant stress recently Home Medications & Allergies Allergies: Uncoded Allergies: MINT (Allergy, Mild, 09/10/16) REPORTS BEING UNABLE TO TOLERATE MINT OR MEDICATION WITH MINT FLAVORING Home Medication List Reviewed: Yes WPL-[place]gs[place]-Mgbonm Hx Patient Social History Marital Status: Employed/Student: retired Alcohol Use: Denies Use Recreational Drug Use: No Smoking Status: Never a Smoker Recent Foreign Travel: No Recent Infectious Disease Expo: No Recent Hopitalizations: No Physical Abuse Screen: No Sexual Abuse: No Past Medical History HTN, meningioma Constitutional: No chills, No diaphoresis, No dizziness, No fever, No malaise, No weakness EENTM: No blurred vision, No double vision, No epistaxis, No nose pain, No tearing, No vision loss Respiratory: No cough, No dyspnea on exertion, No hemoptysis, No short of breath Cardiovascular: No chest pain, No edema, No Hx of Intervention, No palpitations , No syncope, No vascular heart diseas Gastrointestinal: No abdominal pain, No constipation, No diarrhea Genitourinary: No dysuria, No frequency Musculoskeletal: No back pain, No muscle weakness, No neck pain Psychiatric/Neurological: ParesthesiaDenies Pre-Existing Deficit (Left sided arm weakness, facial drooping), Weakness Reviewed Test Results Reviewed Test Results Lab Laboratory Tests 09/10/16 13:32: Glucometer 110 09/10/16 13:33: Activated Partial Thromboplast Time 26, Alanine Aminotransferase (ALT/SGPT) 16, Albumin 3.8, Alkaline Phosphatase 86, Anion Gap 13, Aspartate Amino Transf (AST/ SGOT) 11, BUN/Creatinine Ratio 25, Basophils # (Auto) 0.0, Basophils (%) (Auto) 0, Blood Urea Nitrogen 18, Calcium Level 9.3, Carbon Dioxide Level 22, Chloride Level 102, Creatinine 0.73, D-Dimer 0.45, Eosinophils # (Auto) 0.1, Eosinophils (%) (Auto) 1, Estimat Glomerular Filtration Rate > 60, Glucose Level 119H, Hematocrit 41, Hemoglobin 14.0, INR Comment 0.9, Lymphocytes # (Auto) 4.1H, Lymphocytes (%) (Auto) 43, Mean Corpuscular Hemoglobin 31, Mean Corpuscular Hemoglobin Concent 34, Mean Corpuscular Volume 91, Mean Platelet Volume 9.9, Monocytes # (Auto) 0.5, Monocytes (%) (Auto) 6, Neutrophils # (Auto) 4.8, Neutrophils (%) (Auto) 50, Platelet Count 328, Potassium Level 3.6, Prothrombin Time 11.8L, Red Blood Count 4.49, Red Cell Distribution Width 12.1, Sodium Level 137, TSH [place] Testing 1.48, Total Bilirubin 0.4, Total Protein 6.8, Troponin I < 0.30, White Blood Count 9.5 09/11/16 04:25: Anion Gap 11, BUN/Creatinine Ratio 22, Basophils # (Auto) 0.0, Basophils (%) ( Auto) 0, Blood Urea Nitrogen 14, Calcium Level 9.3, Carbon Dioxide Level 23, Chloride Level 103, Creatinine 0.64, Eosinophils # (Auto) 0.1, Eosinophils (%) ( Auto) 1, Estimat Glomerular Filtration Rate > 60, Glucose Level 137H, Hematocrit 37, Hemoglobin 12.8, INR Comment 1.0, Lymphocytes # (Auto) 3.3, Lymphocytes (%) (Auto) 42, Mean Corpuscular Hemoglobin 31, Mean Corpuscular Hemoglobin Concent 35, Mean Corpuscular Volume 91, Mean Platelet Volume 9.9, Monocytes # (Auto) 0.6, Monocytes (%) (Auto) 7, Neutrophils # (Auto) 4.0, Neutrophils (%) (Auto) 50, Platelet Count 310, Potassium Level 3.3L, Prothrombin Time 13.1, Red Blood Count 4.09L, Red Cell Distribution Width 12.3, Sodium Level 137, White Blood Count 8.0, Cholesterol Level 183, HDL Cholesterol 41, LDL Cholesterol Direct 128, Magnesium Level 1.5L, Phosphorus Level 3.1, Triglycerides Level 118, VLDL Cholesterol 24 09/11/16 11:15: Glucometer 165H ECG Impression ECG Initial ECG Rhythm: Normal Sinus Physical Exam Vital Signs Vital Sign - Last 12Hours 09/10/16 09/10/16 13:13 13:15 Temp 96.5 Pulse 95 Resp 16 B/P 235/105 Pulse Ox 96 O2 Delivery Nasal Cannula O2 Flow Rate 2 Capillary Refill : Less Than 3 Seconds General Appearance: No Apparent Distress WD/WN HEENT: PERRL/EOMI Normal ENT Inspection Neck: Full Range of Motion Normal Inspection Non Tender Supple Respiratory: Chest Non Tender No Accessory Muscle Use No Respiratory Distress Cardiovascular: Regular Rate, Rhythm No Edema No Gallop No JVD No Murmur Gastrointestinal: Normal Bowel Sounds Non Tender Soft Rectal: Deferred Back: No CVA Tenderness Extremity: Non Tender No Calf Tenderness No Pedal Edema Neurologic/Psychiatric: Alert Oriented x3 Facial Droop (left side slight facial droop) Motor Weakness (left arm, left leg) A/P-Cardiology Admission Diagnosis CVA HTN HLP meningioma Assessment/Plan Acute CVA with left sided weakness- CT Head with 3cm calcified meningioma, otherwise negative, given tPA in ER. Continues to have left sided facial drooping with left sided weakness. Will start patient on Plavix. Carotid US revealed nonobstructive disease bilaterally. 2D echo results pending. Continue on telemetry. Planning for MRI later today. Will consider HETAL for further evaluation of source of CVA. Sinus tachycardia with PVC's- restart home beta murali and continue to monitor telemetry. HTN- continue to monitor BP at this time. HLP- on statin. Continue to monitor. Hx meningioma- CT head revealed 3cm calcified meningioma. Thank you for allowing us to participate in the management of Mrs. Dunn. This is Rubina Davidson PA-C acting as a scribe for Dr. Chu. This Dr. Chu, I have seen and evaluated the patient with Rubina, interviewed the patient, perform physical examination, patient was presented with the weakness on the left side, given TPA, still having some residual weakness. On examination muscle strength are 3 over 5 on the left side compared to 4 over 5 on the right side. Lungs were clear to auscultation bilateral, heart is regular rate and rhythm. Her echocardiogram did not show any acute abnormality, normal LV function. I discussed with her the management plan, she is going for MRI today. If no source of stroke was noted, I will consider a HETAL. Continue to monitor on telemetry. I will start aspirin and Plavix at this time and monitor. She was noted to be in sinus tachycardia with occasional PVCs. She has been on metoprolol in the past which will be restarted. Continue on statin. Continue to monitor. I reviewed the current note and agree with described, I made a few minor modification using Italic Font Clinical Quality Measures DVT/VTE Risk/Contraindication: Risk Factor Score Per Nursin RFS Level Per Nursing on Admit: 2=Moderate RUBINA IBARRA Sep 11, 2016 13:09 MECHELLE CHU MD Sep 11, 2016 15:50
--- NOTE | 2016-09-11 14:30 | Occupational Therapy Eval ---
OT Evaluation-General/PLF Medical Diagnosis Admission Date Sep 10, 2016 at 16:49 Medical Diagnosis: Suspected CVA Onset Date: Sep 10, 2016 Therapy Diagnosis Therapy Diagnosis: left sided weakness Height/Weight Height (Feet): 5 Height (Inches): 5.00 Weight (Pounds): 174 Weight (Ounces): 1.0 Precautions Precautions/Isolations: Fall Prevention, Standard Precautions Safety Interventions: Bed Exit Alarm Weight Bear Status Weight Bearing Restriction: Weight Bearing/Tolerated Referral Physician: Daniel Martell MD Referral Reason: Activity Tolerance, Self Care, Evaluation/Treatment, Strengthening/ROM Medical History Pertinent Medical History: HTN Additional Medical History brain tumor that is benign and stable. This causes vertigo when getting up or lying back down. Current History Pt. developed left sided weakness and facial droop. Reviewed History: Yes Social History Home: Single Level Current Living Status: Spouse Entry Into Home: Level Entry ADL-Prior Level of Function ADL PLOF Comments Pt. was independent with everything before this happened. States that she did the grocery shopping previous to this episode. DME/Equipment: Bath Chair, Shower, Tub/Shower DME/Equipment Comments Pt. states that she has grab bars in her shower, and has elevated toilet seat with handrails. 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 Appearance Pt. in bed. Agrees to work with therapy. States that she has no more numbness in left side of face, and was able to eat breakfast earlier with no difficulty. Mental Status/Objective Patient Orientation: Person, Place, Time, Situation Current Glasses/Contacts: Yes Hand Dominance: Right Upper Extremity ROM WFL right UE limited left UE- pt. is able to flex left shoulder to approximately 100 degrees. Is able to fully flex/extend left wrist fingers, but is weak. Upper Extremity Coordination intact Upper Extremity Strength right- UE- WFL left UE- pt. exhibits approximately 2+/5 left shoulder, 3/5 left elbow, wrist, fingers. ADL-Treatment Functional [place] Measure 0=Not Assessed/NA 4=Minimal Assistance 1=Total Assistance 5=Supervision or Setup 2=Maximal Assistance 6=Modified [place] 3=Moderate Assistance 7=Complete IndependenceIRFPAI Quality Coding Scale 6 Independent with activity with or without an assistive device 5 Patient requires set up or clean up by helper. Patient completes activity by themselves 4 Supervision or touching assist (CGA). [place] provide cues , steadying assist 3 The helper provides less than half the effort to complete the activity 2 The helper provides more than half the effort to complete the activity 1 Dependent. The helper does all the effort to complete an activity 7 Patient refused to complete or attempt activity 9 The patient did not perform the activity before the current illness or injury 88 Not attempted due to Medical conditions or safety concerns Eating (FIM): 5 Lower Body Dressing (FIM): 3 (Pt. is able to bend over and doff socks, but has difficulty getting left back on at all. She is able to get the right one on, but it is a struggle for her.) Transfers (B, C, W/C) (FIM): 3 (Mod assist for supine-sit, and min x 2 for sit- stand and to take steps. Min assist for sit-supine.) OT/PT co-treat due to pt's fatigue level, blood pressure issues, and current TPA precautions. OT focused on ADL training and scoring while PT observed mobility and dynamic balance. Pt. required min assist x 2 for transfers and stability during dynamic tasks. Pt's blood pressure 180/82 at end of treatment. Nursing notified before treatment began and gave okay. OT and PT worked together to ensure safety of pt. Education OT Patient Education: Modified ADL techniques, Progress toward Goal/Update tx plan, Purpose of tx/functional activities, Reviewed precautions, Rehab process, Transfer techniques Teaching Recipient: Patient Teaching Methods: Demonstration, Discussion Response to Teaching: Verbalize Understanding, Return Demonstration OT Short Term Goals Short Term Goals Time Frame: Sep 18, 2016 Eating(FIM): 5 Grooming(FIM): 5 Bathing(FIM): 5 Upper Body Dressing(FIM): 5 Lower Body Dressing(FIM): 5 Toileting(FIM): 5 Transfers (B,C,W/C) (FIM): 5 Toilet/Commode Transfer(FIM): 5 Shower Transfer(FIM): 5 Additional Short Term Goals: 1-Demonstrate ADL Tasks, 2-Verbalize Understanding , 3-ImproveStrength/[place] 1=Demonstrate adherence to instructed precautions during ADL tasks. 2=Patient will verbalize/demonstrate understanding of assistive devices/ modifications for ADL. 3=Patient will improve strength/tolerance for activity to enable patient to perform ADL's. OT Jail Goals Jail Goals Time Frame: 3 weeks Eating (FIM): 6 Grooming(FIM): 6 Bathing(FIM): 5 Upper Body Dressing(FIM): 6 Lower Body Dressing(FIM): 6 Toileting(FIM): 6 Transfers (B,C,W/C) (FIM): 6 Toilet/Commode Transfer(FIM): 6 Shower Transfer(FIM): 5 Additional Goals: 1-Demonstrate ADL Tasks, 2-Verbalize Understanding, 3- ImproveStrength/Laurence 1=Demonstrate adherence to instructed precautions during ADL tasks. 2=Patient will verbalize/demonstrate understanding of assistive devices/ modifications for ADL. 3=Patient will improve strength/tolerance for activity to enable patient to perform ADL's. OT Education/Plan Problem List/Assessment Assessment: Decreased Activ Tolerance, Decreased UE Strength, Dependent Transfers, Impaired Bed Mobility, Impaired Coordination, Impaired Funct Balance , Impaired I ADL's, Impaired Self-Care Skills, Restricted Funct UE ROM Discharge Recommendations Plan/Recommendations: Continue POC Therapy D/C Recommendations: Acute Rehab Equpiment Recommendations-D/C: Hip Kit Target Placement Pt. would benefit from acute rehab stay to gain independence before return home. Treatment Plan/Plan of Care Treatment,Training & Education: Yes Patient would benefit from OT for education, treatment and training to promote independence in ADL's, mobility, safety and/or upper extremity function for ADL' s. Plan of Care: ADL Retraining Treatment Duration: Oct 02, 2016 # of days/week 5-6 Visits Per Week: 5-6 Agreement: Yes Rehab Potential: Good Time/GCodes Start Time: 11:15 Stop Time: 11:40 Total Time Billed (hr/min): 25 Billed Treatment Time 0851-1961- PT evaluation-no charge [id number]- OT evaluation- 1, evalow complexity Please see above note for OT/PT roles in this evaluation. EDDIE SUE OT Sep 11, 2016 14:30
--- NOTE | 2016-09-11 14:52 | Physical Therapy Daily Note ---
PT Daily Note-Current Subjective Pt. in bed with meal tray in front of her and inquires right away as to whether she might be able to sit up in a chair to eat. This PAIL TESTER checking with nurse and nurse to room to assist with TRF etc Pain Numeric Pain Scale: 0-No Pain Appearance listing somewhat upon sitting EOB, Mental Status Patient Orientation: Normal For Age Attachments: SCD's O2 sat mon, BP cuff, EKG leads Transfers Functional [place] Measure 0=Not Assessed/NA 4=Minimal Assistance 1=Total Assistance 5=Supervision or Setup 2=Maximal Assistance 6=Modified [place] 3=Moderate Assistance 7=Complete IndependenceIRFPAI Quality Coding Scale 6 Independent with activity with or without an assistive device 5 Patient requires set up or clean up by helper. Patient completes activity by themselves 4 Supervision or touching assist (CGA). [place] provide cues , steadying assist 3 The helper provides less than half the effort to complete the activity 2 The helper provides more than half the effort to complete the activity 1 Dependent. The helper does all the effort to complete an activity 7 Patient refused to complete or attempt activity 9 The patient did not perform the activity before the current illness or injury 88 Not attempted due to Medical conditions or safety concerns Transfers (B, C, W/C) (FIM): 4 Scootin Rollin Supine to/from Sit: 4 Sit to/from Stand: 4 Bed to/from Chair: 4 Gait Training Gait Assistive Device: FWW 5-6 steps bed to chair, stood at chair for pre gait sway with good tolerance Exercises Seated Therapy Exercises: Ankle pumps, Sit to stand (3), Long arc quads Seated Reps: 8 Standing: Weight shifts Standing Reps: 10 Assessment Current Status: Good Progress up in chair for meal, ball at side PT Short Term Goals Short Term Goals Transfers (B,C,W/C) (FIM): 5 PT Wool Batting Worker Goals Wool Batting Worker Goals PT Group Home Goals Time Frame: Sep 18, 2016 Transfers (B,C,W/C) (FIM): 4 (CGA) Gait (FIM): 2 Distance: 50' Gait Level of Assist: 4 (CGA) Gait Assistive Device: FWW PT Plan Treatment/Plan Treatment Plan: Continue Plan of Care Treatment Plan: Bed Mobility, Education, Functional Activity [place], Functional Strength, Gait, Safety, Therapeutic Exercise, Transfers Treatment Duration: Sep 18, 2016 Visits Per Week: 10-11 Minutes/Day (M-F): 15-30 Minutes/Day (Sat/[place]): 15-30 Safety Risks/Education Patient Education: Gait Training (pre gait), Transfer Techniques Teaching Recipient: Patient Teaching Methods: Demonstration, Discussion Response to Teaching: Verbalize Understanding, Return Demonstration Time/GCodes Time In: 1420 Time Out: 1440 Total Billed Treatment Time: 20 Total Billed Treatment 1,FA20m G Codes Necessary: BHAVYA Bolanos PAIL TESTER Sep 11, 2016 14:52
[2016-09-11] MEDS ORDERED: HYDR25TA4 PO (15:04)
[2016-09-11] MEDS ORDERED: NAPR220T66 PO (15:26)
[2016-09-11] MEDS ORDERED: CLOPIDOGREL 75 MG (PLAVIX) TABLET ONE (16:15)
[2016-09-11] MEDS: CLOPIDOGREL 75 MG (PLAVIX) TABLET PO SCH (16:24)
--- NOTE | 2016-09-11 18:19 | Diagnostic Imaging Report ---
PROCEDURE: MR imaging of the brain without contrast. TECHNIQUE: Multiplanar, multisequence MR imaging of the brain was performed without contrast. INDICATION: Left-sided facial droop and left-sided body weakness. FINDINGS: There is diffusion restriction in the posterolateral aspect of the right thalamus, an oval area measuring 1.5 x 1 cm in length with associated T2 and FLAIR signal hyperintensity compatible with an acute infarct. Other foci of T2 shine-through on the diffusion sequence are seen with no other definite diffusion restriction noted. Periventricular and deep white matter T2 hyperintense signal abnormalities are compatible with chronic microvascular ischemic changes. There is a 2.7 x 2.7 x 2.5 cm extra-axial mass based on the tentorium to the left side of the midline with mass effect on the adjacent left occipital lobe and left cerebellar hemispheres without significant parenchymal signal abnormality suggestive of a meningioma. This is completely calcified based on associated CT scan. The lack of adjacent significant edema is in favor of chronicity. The central vascular flow-voids appear grossly unremarkable. There is no MRI evidence of intraparenchymal hemorrhage. No extra-axial fluid collection is seen. The pituitary gland is normal in size. The internal auditory canals and inner ear structures appear symmetric. The orbits appear grossly unremarkable. IMPRESSION: 1. Right thalamic 1.5 cm acute infarct. 2. A 2.7 cm extra-axial mass based on the tentorium to the left of the midline with mass effect on the left occipital lobe and left cerebellar hemisphere but without significant parenchymal edema compatible with a likely long-standing meningioma. A message about the findings of an acute infarct in the right thalamus was sent to Dr. Girard by Dr. Macedo at the time of dictation. Dictated by: Dictated on workstation # [id number]
[2016-09-11] MEDS: meTOprolol TARTRATE 25 MG (LOPRESSOR) TABLET PO SCH (20:39)
[2016-09-11] MEDS ORDERED: SIMvastatin 20 MG (ZOCOR) TAB PO SCH (21:00)
[2016-09-11] MEDS ORDERED: ATORVASTATIN 20 MG (LIPITOR) TABLET PO SCH (21:00)
[2016-09-12] VITALS: BP 183/77
[2016-09-12 03:14] VITALS: BP 173/77
[2016-09-12] MEDS: CATHETER FLUSH 10 ML SYR IV SCH (05:57)
--- NOTE | 2016-09-12 08:11 | Cardiology Progress Note ---
Subjective Subjective/Events-last exam Patient sitting up in bed. Continues to have some left sided weakness. Denies any CP or palpitations. Review of Systems General: No Fatigue, No Malaise HEENT: No Head Aches, No Visual Changes Pulmonary: No Dyspnea, No Cough Cardiovascular: No: Chest Pain, Orthopnea, Palpitations Gastrointestinal: No: Abdominal Pain, Nausea, Vomiting Genitourinary: No Dysuria, No Frequency Musculoskeletal: No: back pain, neck pain Neurological: : Numbness (left fingers): Weakness (left sided)No: Change in speech, Confusion Objective-Cardiology Exam Last Set of Vital Signs Vital Signs 09/10/16 09/12/16 13:15 08:25 Temp 97.2 Pulse 77 Resp 16 B/P 196/81 Pulse Ox 99 O2 Delivery Room Air O2 Flow Rate 2 Capillary Refill : Less Than 3 Seconds I&O Intake and Output 09/12/16 00:00 Intake Total 1380 ml Output Total 1330 ml Balance 50 ml Intake Oral 753 ml IV Total 627 ml Output Urine Total 1330 ml # Voids 1 General: Alert, Oriented X3, Cooperative HEENT: Atraumatic, PERRLA Neck: Supple, No JVD, No Thyromegaly Lungs: Clear to Auscultation, Normal Air Movement Heart: Regular Rate, Normal S1, Normal S2, No Murmurs Abdomen: Normal Bowel Sounds, Soft, No Tenderness, No Hepatosplenomegaly, No Masses Extremities: No Clubbing, No Cyanosis, No Edema, Normal Pulses, No Tenderness/ Swelling Skin: No Rashes, No Breakdown, No Significant Lesion Neuro: Normal Speech, Other (left arm and leg weakness, slight left facial droop) Psych/Mental Status: Mental Status NL, Mood NL A/P-Cardiology Admission Diagnosis CVA HTN HLP meningioma Assessment/Plan Acute CVA with left sided weakness- CT Head with 3cm calcified meningioma, otherwise negative, given tPA in ER. MRI brain revealed right thalmus 1.5cm acute infarct. Continues to have left sided facial drooping with left sided weakness. On Plavix and ASA. Carotid US revealed nonobstructive disease bilaterally. 2D echo results pending. Continue on telemetry. Will consider HETAL for further evaluation of source of CVA. Continue PT/OT Sinus tachycardia with PVC's- improved after starting Lopressor. Continue to monitor. HTN- continue to monitor BP at this time. HLP- started on Lipitor. Continue to monitor. Hx meningioma- CT head revealed 3cm calcified meningioma. This is Dr. Chu, I have seen and evaluated the patient with Rubina, perform physical examination, on examination lungs are clear to auscultation, left upper extremities muscle strength is better, left lower except he still weaker. Being transferred to acute rehabilitation. Continue on current medication, continue to monitor. Continue on beta blockers. Clinical Quality Measures DVT/VTE Risk/Contraindication: Risk Factor Score Per Nursin RFS Level Per Nursing on Admit: 2=Moderate RUBINA IBARRA Sep 12, 2016 08:11 MECHELLE CHU MD Sep 12, 2016 15:22
[2016-09-12] MEDS: DOCUSATE SODIUM 100 MG (COLACE) CAP PO SCH (08:20)
[2016-09-12 08:25] VITALS: BP 196/81
[2016-09-12] MEDS: CLOPIDOGREL 75 MG (PLAVIX) TABLET PO SCH (08:31)
[2016-09-12] MEDS: meTOprolol TARTRATE 25 MG (LOPRESSOR) TABLET PO SCH (08:31)
[2016-09-12] MEDS ORDERED: ASPI-983 PO (08:34)
[2016-09-12] MEDS ORDERED: DOCU100C37 PO (08:34)
[2016-09-12] MEDS ORDERED: CLOP75TA28 PO (08:34)
[2016-09-12] MEDS ORDERED: ATOR20TA66 PO (08:34)
[2016-09-12] MEDS ORDERED: METO-333 PO (08:34)
[2016-09-12] MEDS ORDERED: ASPIRIN E.C. 81 MG (ECOTRIN) TAB PO SCH (09:00)
--- NOTE | 2016-09-12 10:09 | ECHOCARDIOGRAPHY REPORT ---
PROCEDURE PHYSICIAN: MECHELLE BILLY DATE OF PROCEDURE: 09/11/2016 TWO DIMENSIONAL ECHOCARDIOGRAM REPORT PRIMARY PHYSICIAN: OTHER PHYSICIAN: REFERRING PHYSICIAN: Dr. Martell ORDERING PHYSICIAN: INDICATION FOR THE PROCEDURE: Acute CVA MEASUREMENTS DERIVED VALUES LV DIAMETER (LAX) NORMALS NORMALS Diastolic 4.2 (3.6-5.2) Eject. Fract. 60% (60%+/-6%) Systolic (2.3-3.9) Diastolic Vol. % Shortening (0.22-0.42) Systolic Vol. Aortic Root IVS THICKNESS Diastolic 1.1 (0.6-1.1) LVPW THICKNESS Diastolic 1. (0.6-1.1) LA DIAMETER Systolic 3.9 (2.1-3.7) FINDINGS: 1. Technical quality is good. 2. The left ventricle is normal in size with mild hypertrophy noted at the base of the septum giving the septum a sigmoid shape. Systolic function appeared to be normal. Estimated ejection fraction 60%. 3. The left atrium is in the upper normal limit in size. No clot or thrombus were seen. 4. The right atrium and right ventricle are normal in size. No clot or thrombus were seen within the right side. 5. Mitral valve is normal in morphology with trace mitral regurgitation noted by color Doppler flow. No mitral valve prolapse. No mitral valve stenosis. Doppler across the mitral valve showed E:A reversal which is an expected finding in patient of age 71. 6. Aortic valve is trileaflet with normal opening and closing pattern. No significant aortic stenosis or regurgitation was seen. 7. Tricuspid valve is normal in morphology with mild tricuspid regurgitation noted by color Doppler flow. Doppler across tricuspid valve estimated pulmonary artery pressure of 32+ right atrial pressure. 8. Pulmonic valve is functioning normally. 9. No pericardial effusion. CONCLUSION: 1. Normal left ventricular size. Mild hypertrophy noted at the base of the septum giving the septum a sigmoid shape. Systolic function appeared to be normal. Estimated ejection fraction 60%. 2. Left atrium is in the upper normal limit in size. 3. Trace mitral regurgitation. Mild tricuspid regurgitation. 4. Estimated pulmonary artery pressure of 40 mmHg. Job ID: [id number] Dictated Date: 09/11/2016 16:44:23 Center Medical Director Date: 09/12/2016 10:01:17 / jose
[2016-09-12 10:20] VITALS: BP 196/81
--- NOTE | 2016-09-12 10:22 | Discharge Summary-Hospitalist ---
Diagnosis/Chief Complaint Date of Admission Sep 10, 2016 at 16:49 Date of Discharge 09/12/16 Discharge Date: Sep 12, 2016 Admission Diagnosis Acute CVA with left sided weakness and facial droop s/p TPA with major improvement in deficits HTN OOC due to #1 Hx of brain tumor Hyperlipidemia Hypokalemia Discharge Diagnosis Acute CVA with left sided weakness and facial droop s/p TPA with major improvement in deficits but still w/deficits that require in-pt rehab HTN OOC due to #1 Hx of brain tumor Hyperlipidemia Hypokalemia Reason Hospital Visit/Course CC: weakness Ms. Dunn is a 71yo with a PMH of meningioma and HTN who was admitted on to the ICU after receiving tPA for CVA with left sided weakness. Her symptoms improved over time as her NIH stroke scale was initially 5 and went down to 0. Initially her systolic blood pressure was >200 on admission and she was started on a Cardene drip which lowered it to 130s. She continued to have a small amount of facial droop over the next day, but was able to pass a swallow evaluation. MRI on 09/11/16 showed a 1.5cm right thalamic acute infarct as well as a stable meningioma which has been followed as an outpatient. She received potassium and magnesium replacement while in the ICU. She was started on a statin agent. An echo was done without evidence of vegetations, but cardiology is considering a HETAL in the future. Physical exam at time of discharge to rehab: Alert and oriented x4 Speech is fluent with normal speed Cranial nerve VII still partially out with minor left lip droop and left eye droop which the patient said has improved Cranial nerves I-XII otherwise intact Upper arm strength symmetric on both sides Lower extremity strength 4+ on left and 5 on right Mild ataxia with finger to nose with no past pointing Rapid finger movements slower on left than right Walks with walker currently, previous to this hospital stay she did not use a walker She was stable and discharged from the floor on 09/12/16 and transferred to inpatient rehab for further therapy. Scribed by [facility] under direct supervision of Dr Sienna Emerson [place] Hospital course: Patient had an uneventful hospital course and had a remarkable recovery following TPA given in ER after instructed by [facility] Stroke center. She was started on Plavix, ASA and statin to help prevent recurrent CVA. She was admitted to IRF and will be followed closely during her recovery. Discharge Summary Discharge Physical Examination Allergies: Uncoded Allergies: MINT (Allergy, Mild, 09/10/16) REPORTS BEING UNABLE TO TOLERATE MINT OR MEDICATION WITH MINT FLAVORING Vitals & I&Os Vital Signs Date Time Temp Pulse Resp B/P Pulse Ox O2 Delivery O2 Flow Rate FiO2 09/12/16 08:25 97.2 77 16 196/81 99 Room Air 09/10/16 13:15 2 Hospital Course Labs (last 24 hrs) Laboratory Tests 09/11/16 11:15: Glucometer 165H 09/11/16 16:26: Glucometer 210H 09/11/16 20:56: Glucometer 130H 09/12/16 06:32: Glucometer 124H 09/12/16 09:35: Glucometer 171H Pending Labs Laboratory Tests 09/12/16 06:32: Glucometer 124 09/12/16 09:35: Glucometer 171 Discharge Home Medications: Active Scripts Active Docusate Sodium 100 Mg Capsule 100 Mg PO BID 30 Days Aspirin EC (Aspirin) 81 Mg Tablet.dr 81 Mg PO DAILY 30 Days Clopidogrel (Clopidogrel Bisulfate) 75 Mg Tablet 75 Mg PO DAILY 30 Days Atorvastatin Calcium 20 Mg Tablet 20 Mg PO HS 30 Days Metoprolol Tartrate 25 Mg Tablet 12.5 Mg PO BID 30 Days Reported Aleve (Naproxen Sodium) 220 Mg Tablet 220 Mg PO DAILY Hydrochlorothiazide 25 Mg Tablet 25 Mg PO DAILY FILLED 06/10/16 #30 Instructions to patient/family Please see electonic discharge instructions given to patient. Clinical Quality Measures DVT/VTE Risk/Contraindication: Risk Factor Score Per Nursin RFS Level Per Nursing on Admit: 2=Moderate SIENNA EMERSON DO Sep 12, 2016 10:22
[2016-09-13] MEDS ORDERED: ATEN100T PO (19:24)
[2016-09-24] MEDS ORDERED: ASPI-983 PO (08:22)
[2016-09-24] MEDS ORDERED: METO50TA2 PO (08:22)
[2016-09-24] MEDS ORDERED: CLOP75TA28 PO (08:22)
[2016-09-24] MEDS ORDERED: LISI10TA2 PO (08:22)
[2016-09-24] MEDS ORDERED: ATOR20TA66 PO (08:22)
== END 2016-09-12 10:00 | DRG 62 ==
LOC: EDUNIT# 13:10 → ER 13:13 → ICU 16:49 → 4TH 09-11 18:00
PROVIDERS: ADMIT Internal Medicine; ATTEND Internal Medicine
DX: I63.9 Cerebral infarction, unspecified (principal); G81.94 Hemiplegia, unspecified affecting left nondominant side; R29.810 Facial weakness; R47.81 Slurred speech; R27.0 Ataxia, unspecified; I16.1 Hypertensive emergency; R29.705 NIHSS score 5; D32.9 Benign neoplasm of meninges, unspecified; E78.5 Hyperlipidemia, unspecified; E87.6 Hypokalemia; E83.42 Hypomagnesemia; I65.23 Occlusion and stenosis of bilateral carotid arteries; R00.0 Tachycardia, unspecified; I49.3 Ventricular premature depolarization
CPT/HCPCS: 36415; 70450; 70496; 70498; 70551; 71010; 80048; 80053; 80061; 82962; 83735; 84100; 84443; 84484; 85025; 85379; 85610; 85730; 87081; 93005; 93041; 93306; 93880; 94664; 96365; 96366; 96375; 96376

== ENCOUNTER 2016-09-12 09:58 | Inpatient (IN) | payer MEDICARE ==
[~2016-09-12] VITALS: Ht 165.1 cm; Wt 78.5 kg
[~2016-09-12 09:58] MED LIST: ASPI-983 PO; ATOR20TA66 PO; CLOP75TA28 PO; DOCU100C37 PO; HYDR25TA4 PO; METO-333 PO; NAPR220T66 PO
--- OUTSIDE RECORDS SUMMARY | 2016-09-12 10:57 | XMS REPORT | Continuity of Care Document ---
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 Name Role Phone NO, LOCAL PHYSICIAN PCP Unavailable Insurance Providers Payer Name Policy Number Subscriber Name Relationship Wps Medicare [id number] Elidia Zuleta 18 Self / Same As Patient Blue Cross [facility] Supp [id number] Elidia Zuleta 18 Self / Same As Patient Advance Directives Directive Response Recorded Date/Time Advance Directives No 09/10/16 5:55pm Health Care Power of Educational Program Director No 09/10/16 5:55pm Organ Donor Yes 09/10/16 5:55pm Resuscitation Status Full Code 09/10/16 5:55pm Chief Complaint and Reason for Visit Chief Complaint CVA, LEFT SIDED WEAKNESS Reason for Visit CVA (cerebral vascular accident) Hypertensive emergency Left-sided weakness Problems Active Problems Medical Problem Onset Date Status CVA (cerebral vascular accident) Unknown Acute Hypertensive emergency Unknown Acute Left-sided weakness Unknown Acute Medications Current Home Medications Medication Dose Units Route Directions Days/Qty Instructions Start Date Hydrochlorothiazide 25 Mg 25 Mg Oral Daily FILLED 06/10/16 #30 Naproxen Sodium 220 Mg 220 Mg Oral Daily 09/11/16 Metoprolol Tartrate 25 Mg 12.5 Mg Oral Twice A Day 30 Days 09/12/16 Atorvastatin Calcium 20 Mg 20 Mg Oral Bedtime 30 Days 09/12/16 Clopidogrel Bisulfate 75 Mg 75 Mg Oral Daily 30 Days 09/12/16 Aspirin 81 Mg 81 Mg Oral Daily 30 Days 09/12/16 Docusate Sodium 100 Mg 100 Mg Oral Twice A Day 30 Days 09/12/16 Social History Social History Problem Response Recorded Date/Time Alcohol Use Denies Use 09/10/2016 6:02pm Recreational Drug Use No 09/10/2016 6:02pm Recent Foreign Travel No 09/10/2016 5:55pm Recent Infectious Disease Exposure No 09/10/2016 5:55pm Hospitalization with Isolation Denies 09/12/2016 10:47am Smoking Status Never a Smoker 09/10/2016 5:55pm Recent Hopitalizations No 09/10/2016 6:02pm Hospitalization with Isolation Denies 09/12/2016 10:47am Query Response Start Date Stop Date Smoking Status Never a Smoker Hospital Discharge Instructions No hospital discharge instructions. Plan of Care Discharge Date 09/12/16 10:00am Disposition 09 ADMITTED INPATIENT Instructions/Education Provided Lowering the Risk of Having Another Stroke Prescriptions See Medication Section Functional Status Query Response Date Recorded Patient Orientation Normal For Age September 11, 2016 2:52pm Patient Orientation Person Place Time Situation Eyes Open September 12, 2016 10:47am Comprehension Ability Understands Concepts September 12, 2016 4:00am Allergies, Adverse Reactions, Alerts Allergen Type Severity Reaction Status Last Updated MINT Allergy Mild Active 09/10/16 Immunizations Name Given Type FLU TRIvalent 5 years - Adult 09/11/16 Administered Vital Signs Acute Vital Signs Vital Response Date/Time Temperature (Fahrenheit) 97.2 degrees F (97.6 - 99.5) 09/12/2016 8:25am Temperature (Calculated Celsius) 36.31353 degrees C (36.4 - 37.5) 09/12/2016 8:25am Temperature Source Tympanic 09/12/2016 8:25am Pulse Rate (adult) 77 bpm (60 - 90) 09/12/2016 8:25am Respiratory Rate 16 bpm (12 - 24) 09/12/2016 8:25am O2 Sat by Pulse Oximetry 99 % (88 - 100) 09/12/2016 8:25am Blood Pressure 196/81 mm Hg 09/12/2016 8:25am Blood Pressure Mean 119 mm Hg 09/12/2016 8:25am Pain Numeric Pain Scale 0-No Pain 09/12/2016 8:25am Height (Feet) 5 feet 09/10/2016 5:55pm Height (Inches) 5.00 inches 09/10/2016 5:55pm Height (Calculated Centimeters) 165.821338 cm 09/10/2016 5:55pm Weight (Pounds) 171 pounds 09/12/2016 6:00am Weight (Ounces) 5.0 oz 09/12/2016 6:00am Weight (Calculated Grams) 47042.044 gm 09/12/2016 6:00am Weight (Calculated Kilograms) 77.289923 kilograms 09/12/2016 6:00am Calculated BMI 28.5 09/10/2016 5:55pm Capillary Refill Capillary Refill Less Than 3 Seconds 09/11/2016 4:00am Results Laboratory Results Test Name Result Units Flags Reference Collection Date/Time Result Date/ Time Comments White Blood Count 8.0 10^3/uL 4.3-11.0 09/11/2016 4:25am 09/11/2016 4: 56am Red Blood Count 4.09 10^6/uL L 4.35-5.85 09/11/2016 4:25am 09/11/2016 4: 56am Hemoglobin 12.8 G/DL 11.5-16.0 09/11/2016 4:2509/11/2016 4:56am Hematocrit 37 % 35-52 09/11/2016 4:09/11/2016 4:56am Mean Corpuscular Volume 91 FL 80-99 09/11/2016 4:09/11/2016 4: 56am Mean Corpuscular Hemoglobin 31 PG 25-34 09/11/2016 4:09/11/2016 4: 56am Mean Corpuscular Hemoglobin Concent 35 G/DL 32-36 09/11/2016 4: 4:56am Red Cell Distribution Width 12.3 % 10.0-14.5 09/11/2016 4:252016 4:56am Platelet Count 310 10^3/uL 130-400 09/11/2016 4:2509/11/2016 4:56am Mean Platelet Volume 9.9 FL 7.4-10.4 09/11/2016 4:25am 09/11/2016 4: 56am Neutrophils (%) (Auto) 50 % 42-75 09/11/2016 4:09/11/2016 4:56am Lymphocytes (%) (Auto) 42 % 12-44 09/11/2016 4:09/11/2016 4:56am Monocytes (%) (Auto) 7 % 0-12 09/11/2016 4:09/11/2016 4:56am Eosinophils (%) (Auto) 1 % 0-10 09/11/2016 4:09/11/2016 4:56am Basophils (%) (Auto) 0 % 0-10 09/11/2016 4:09/11/2016 4:56am Neutrophils # (Auto) 4.0 X 10^3 1.8-7.8 09/11/2016 4:09/11/2016 4: 56am Lymphocytes # (Auto) 3.3 X 10^3 1.0-4.0 09/11/2016 4:09/11/2016 4: 56am Monocytes # (Auto) 0.6 X 10^3 0.0-1.0 09/11/2016 4:09/11/2016 4: 56am Eosinophils # (Auto) 0.1 10^3/uL 0.0-0.3 09/11/2016 4:09/11/2016 4 :56am Basophils # (Auto) 0.0 10^3/uL 0.0-0.1 09/11/2016 4:09/11/2016 4: 56am Prothrombin Time 13.1 SEC 12.2-14.7 09/11/2016 4:09/11/2016 4: 59am INR Comment 1.0 0.8-1.4 09/11/2016 4:09/11/2016 4:59am INTERPRETIVE DATA SUGGESTED THERAPEUTIC RANGE FOR INR'S: VENOUS THROMBOSIS, PULMONARY EMBOLISM, OR PREVENTION OF SYSTEMIC EMBOLISM (EG. IN ATRIAL FIBRILLATION): 2.0 - 3.0 MECHANICAL PROSTHETIC HEART VALVES: 2.5 - 3.5* *NOTE: INR'S UP TO 4.5 MAY BE NECESSARY IN SELECTED GROUPS OF HIGH RISK PATIENTS. [employer] CONSENSUS CONFERENCE ON ANTITHROMBOTIC THERAPY (2000). Activated Partial Thromboplast Time 26 SEC 24-35 09/10/2016 1:33pm 1:50pm D-Dimer 0.45 UG/ML 0.00-0.49 09/10/2016 1:33pm 09/10/2016 1:58pm Sodium Level 137 MMOL/L 135-145 09/11/2016 4:2509/11/2016 5:10am Potassium Level 3.3 MMOL/L L 3.6-5.0 09/11/2016 4:2509/11/2016 5:10am Chloride Level 103 MMOL/L 98-107 09/11/2016 4:2509/11/2016 5:10am Carbon Dioxide Level 23 MMOL/L 21-32 09/11/2016 4:09/11/2016 5: 10am Anion Gap 11 MMOL/L 5-14 09/11/2016 4:2509/11/2016 5:10am Blood Urea Nitrogen 14 MG/DL -09/11/2016 4:09/11/2016 5:10am Creatinine 0.64 MG/DL 0.60-1.30 09/11/2016 4:2509/11/2016 5:10am BUN/Creatinine Ratio 22 09/11/2016 4:09/11/2016 5:10am Estimat Glomerular Filtration Rate > 60 09/11/2016 4:2016 5:10am GFR INTERPRETIVE DATA UNITS FOR ESTIMATED GFR (eGFR): mL/min/1.73 M2 REFERENCE RANGE FOR ESTIMATED GFR (eGFR) eGFR NORMAL eGFR >60 MODERATELY DECREASED eGFR 30-59 SEVERLY DECREASED eGFR 15-29 KIDNEY FAILURE <15 (OR DIALYSIS) Glucose Level 137 MG/DL H 70-105 09/11/2016 4:2509/11/2016 5:10am Glucometer 171 MG/DL H 70-110 09/12/2016 9:35am 09/12/2016 10:10am Calcium Level 9.3 MG/DL 8.5-10.1 09/11/2016 4:2509/11/2016 5:10am Phosphorus Level 3.1 MG/DL 2.3-4.7 09/11/2016 4:2509/11/2016 5:10am Magnesium Level 1.5 MG/DL L 1.8-2.4 09/11/2016 4:2509/11/2016 5:10am Total Bilirubin 0.4 MG/DL 0.1-1.0 09/10/2016 1:33pm 09/10/2016 1:59pm Alkaline Phosphatase 86 U/L 40-136 09/10/2016 1:33pm 09/10/2016 1:59pm Aspartate Amino Transf (AST/SGOT) 11 U/L 5-34 09/10/2016 1:33pm 2016 1:59pm Alanine Aminotransferase (ALT/SGPT) 16 U/L 0-55 09/10/2016 1:33pm 09/10 1:59pm Troponin I < 0.30 NG/ML <0.30 09/10/2016 1:33pm 09/10/2016 2:03pm Total Protein 6.8 G/DL 6.4-8.2 09/10/2016 1:33pm 09/10/2016 1:59pm Albumin 3.8 G/DL 3.2-4.5 09/10/2016 1:33pm 09/10/2016 1:59pm Triglycerides Level 118 MG/DL <150 09/11/2016 4:25am 09/11/2016 5:10am Cholesterol Level 183 MG/DL < 200 09/11/2016 4:25am 09/11/2016 5:10am HDL Cholesterol 41 MG/DL 40-60 09/11/2016 4:25am 09/11/2016 5:10am LDL Cholesterol Direct 128 MG/DL 1-129 09/11/2016 4:25am 09/11/2016 5: 10am VLDL Cholesterol 24 MG/DL 5-40 09/11/2016 4:25am 09/11/2016 5:10am TSH [place] Testing 1.48 UIU/ML 0.35-4.94 09/10/2016 1:33pm 09/10/2016 6:17pm Procedures Procedure Status Date Provider(s) Tracing only of electrocardiogram Completed 09/10/16 ISABEL HARRIS MD Color Doppler echocardiography Completed 09/11/16 AMILCAR POWELL MD Encounters Encounter Location Arrival/Admit Date Discharge/Depart Date Attending Provider Admitted Inpatient [facility] 09/10/16 4:49pm AMILCAR POWELL MD Recent Diagnosis CVA (cerebral vascular accident) Hypertensive emergency Left-sided weakness
[2016-09-12] MEDS ORDERED: CATHETER FLUSH 10 ML SYR IV PRN (11:15)
--- NOTE | 2016-09-12 11:21 | Physical Therapy Evaluation ---
PT Evaluation-General Medical Diagnosis Admission Date Sep 12, 2016 at 10:00 Medical Diagnosis: CVA Onset Date: Sep 10, 2016 Therapy Diagnosis Therapy Diagnosis: weakness, abn gait Height/Weight Height (Feet): 5 Height (Inches): 5.00 Weight (Pounds): 171 Weight (Ounces): 5.0 Precautions Precautions/Isolations: Standard Precautions Weight Bear Status Location Restriction: LE Bilateral Referral Physician: Roman Reason for Referral: Evaluation/Treatment Medical History Pertinent Medical History: Arthritis, HTN Additional Medical History benign brain tumor--found approx 10 years ago; reports she experiences "swimming " in her head with initial transition to supine and sitting up. Current History Presented to ED on 09/10/16 with left facial droop and left sided weakness; received TPA. Transferred to ARU for aggressive therapy services. Reviewed History: Yes Social History Home: Single Level Current Living Status: Spouse Entry Into Home: Stairs With Railing PT Steps Into Home: 3 Prior/Core FIM Prior Level of Function Functional [place] Measure 0=Not Assessed/NA 4=Minimal Assistance 1=Total Assistance 5=Supervision or Setup 2=Maximal Assistance 6=Modified [place] 3=Moderate Assistance 7=Complete [place] Bed Mobility: 7 Transfers (B,C,W/C) (FIM): 7 Gait: 7 drives. Independent and active; assists her mother with necessary tasks and transports her to / from dr barroso. PT Evaluation-Current Subjective Reprors she feels this was brought on by stress, notes she has "alot on my plate right now." Cares for her 93 y/o mother who resides in an [place]; performs much of her care and transportation; has a grandson with recent heart surgery that she feels concerned about. Agreeable to PT and very anxious to start getting better. Pain Numeric Pain Scale: 0-No Pain Location: No Pain Reported Objective Patient Orientation: Person, Place, Time, Situation Problem Solving: Good ROM/Strength ROM Lower Extremities WNL Strenght Lower Extremities Right LE strength is 5/5 Left LE strength is grossly 4-/5 except DF which is 3/5. Integumentary/Posture Integumentary Intact Bowel Incontinence: No Bladder Incontinence: No Posture Normal and symmetrical Neuromuscular (Tone, Coordination, Reflexes) No noted increased tone left LE; reflexes are intact; diminished coordination throughout L LE. Sensory Vision: Wears Glasses Hearing: Impaired Hand Dominance: Right Sensation Right Lower Extremit: Intact Sensation Left Lower Extremity: Intact Transfers Functional [place] Measure 0=Not Assessed/NA 4=Minimal Assistance 1=Total Assistance 5=Supervision or Setup 2=Maximal Assistance 6=Modified [place] 3=Moderate Assistance 7=Complete IndependenceIRFPAI Quality Coding Scale 6 Independent with activity with or without an assistive device 5 Patient requires set up or clean up by helper. Patient completes activity by themselves 4 Supervision or touching assist (CGA). [place] provide cues , steadying assist 3 The helper provides less than half the effort to complete the activity 2 The helper provides more than half the effort to complete the activity 1 Dependent. The helper does all the effort to complete an activity 7 Patient refused to complete or attempt activity 9 The patient did not perform the activity before the current illness or injury 88 Not attempted due to Medical conditions or safety concerns Transfers (B, C, W/C) (FIM): 3 Scootin Rollin Roll Left to Right (QC): 4 Supine to/from Sit: 3 (assist with both legs to get into bed; assist with left leg to get out of bed) Sit to/from Stand: 4 (CGA and skilled cues for sequencing) bed t/f WC(FIM only if WC use): 4 Sit to Lying (QC): 3 Lying to Sitting/Side of Bed(Q: 4 Sit to Stand (QC): 4 Chair/Vol-nj-Nuiel Xfer(QC): 4 Car Transfer (QC): 88 (unsafe to assess at this time. ) Gait Does the Patient Walk?: Yes Mode of Locomotion: Walk Anticipated Mode of Locomotion: Walk Gait (FIM): 2 Distance (FIM): 8=913-84 ft Walk 10 feet (QC): 4 Walk 50 ft with 2 Turns(QC): 4 Walk 150 ft (QC): 88 (unsafe; unable) Walking 10ft/uneven surface-QC: 4 Gait Level of Assist: 4 Gait Persons Needed: 1 Gait Assistive Device: FWW Comments/Gait Description Decreased coordination and placement ability of left LE; requires close CGA with gait; fatigues quickly and foot clearance left diminishes with this--fall risk heightened with this. Wheelchair Training Does the Pt Use a Wheelchair?: No Stairs Stairs (FIM): 1 #of Steps: 1 Level of Assist: 3 1 Step (curb) (QC): 3 4 Steps (QC): 88 (unsafe/unable) 12 Steps (QC): 88 Much difficulty with 1 step; unsafe to try additional steps. Balance Sitting Static: Good Sitting Dynamic: Good Standing Static: Fair Standing Dynamic: Fair Picking up an Object (QC): 88 (unsafe to attempt due to fall risk. ) Treatment Transfer and gait training with focus on sequencing and safety. Work on sit to/ from stand with focus on hand placement, sequencing and controlled decent. Gait with FWW with cues for safety and management of left LE. Assessment/Needs Pt presents post CVA with left sided weakness, decreased functional balance, assist with functional transfers, safety deficits, limited functional act tolerance and decreased ability to mobilize without assist. She has multiple personal factors that include caring for her mother, ill grandchild, history of brain tumor. her CVA is recent and progression may be unstable -- unknown at this time. Rehab Potential: Good PT Short Term Goals Short Term Goals Time Frame: Sep 19, 2016 Transfers (B,C,W/C) (FIM): 4 Gait (FIM): 4 Stairs (FIM): 2 # of Steps: 4 Stairs Level of Assist: 4 PT Skilled Nursing Goals System Analyst Goals PT Skilled Nursing Goals Time Frame: Oct 03, 2016 Transfers (B,C,W/C) (FIM): 6 Sit to Lying (QC): 6 Lying-Sitting on Side/Bed(QC): 6 Sit to Stand (QC): 6 Roll Left to Right (QC): 6 Chair/Axl-rs-Txcra Xfer(QC): 6 Car Transfer (QC): 5 Does the Patient Walk: Yes Gait (FIM): 6 Gait distance (FIM): 3=150 ft Walk 10 feet (QC): 6 Walk 10ft-Uneven Surface(QC): 6 Walk 50ft with 2 Turns (QC): 6 Walk 150 ft (QC): 6 Gait Level of Assist: 6 Gait Assistive Device: FWW Does the Pt use WC or Scooter?: No Stairs (FIM): 5 # of Steps: 8 1 Step (curb) (QC): 6 4 Steps (QC): 6 12 Steps (QC): 88 Stairs Level Of Assist: 6 Picking up an Object (QC): 5 All LTG's are set to allow pt to be at a mod indep level at home and to enter/ exit her home. PT Plan Problem List Problem List: Activity Tolerance, Functional Strength, Safety, Balance, Gait, Transfer, Bed Mobility Treatment/Plan Treatment Plan: Continue Plan of Care Treatment Plan: Bed Mobility, Education, Functional Activity Laurence, Functional Strength, Group Therapy, Gait, Safety, Therapeutic Exercise, Transfers Treatment Duration: Oct 03, 2016 # of days/week 5-6 Visits Per Week: 10-15 Minutes/Day (M-F): 60-90 Minutes/Day (Sat/[place]): prn Pt/Family Agrees w/Plan: Yes Safety Risks/Education Patient Education: Transfer Techniques Teaching Recipient: Patient Teaching Methods: Demonstration, Discussion Response to Teaching: Reinforcement Needed Time/GCodes Time In: 1000 Time Out: 1100 Total Billed Treatment Time: 60 Total Billed Treatment visit [facility] 20 FA 25 GT 15 LEIA PARRA PT Sep 12, 2016 11:20
[2016-09-12 12:06] VITALS: BP 138/77
[2016-09-12] MEDS ORDERED: PNEUMOCOCCAL VACCINE 25 MCG/0.5 ML VIAL IM ONE (12:15)
[2016-09-12] MEDS ORDERED: FLU TRIvalent (5 YOA+) 2016-17 (AFLURIA) 0.5 ML IM ONE (12:15)
--- NOTE | 2016-09-12 13:34 | Physical Therapy Daily Note ---
PT Daily Note-Current Subjective Agrees to PT. Reports she is tired. Pain Numeric Pain Scale: 0-No Pain Location: No Pain Reported Mental Status Patient Orientation: Person, Place, Time, Situation Transfers Functional [place] Measure 0=Not Assessed/NA 4=Minimal Assistance 1=Total Assistance 5=Supervision or Setup 2=Maximal Assistance 6=Modified [place] 3=Moderate Assistance 7=Complete IndependenceIRFPAI Quality Coding Scale 6 Independent with activity with or without an assistive device 5 Patient requires set up or clean up by helper. Patient completes activity by themselves 4 Supervision or touching assist (CGA). [place] provide cues , steadying assist 3 The helper provides less than half the effort to complete the activity 2 The helper provides more than half the effort to complete the activity 1 Dependent. The helper does all the effort to complete an activity 7 Patient refused to complete or attempt activity 9 The patient did not perform the activity before the current illness or injury 88 Not attempted due to Medical conditions or safety concerns Transfers (B, C, W/C) (FIM): 4 Sit to/from Stand: 4 (skilled cues for use of hands and for sequencing prior to sitting. ) Gait Training Does the Patient Walk?: Yes Gait (FIM): 2 Distance (FIM): 6=946-76 ft Distance: 125 ft x 2 50 ft x 1 Gait Level of Assist: 4 Gait Assistive Device: FWW Limited active DF on the left during gait but her foot does not drop. Diminished coordinated movement/placement of left foot with gait and this worsens with fatigue. Pt tends to walk too fast and her left foot has trouble keeping up. This did not cause a LOB episode but certainly could do so. Exercises NuStep Minutes: 12 (NU step performed to address limited functional act go) Assessment Current Status: Good Progress Continues to require cues for safe sit to from stand transfers, gait requires CGA for safety. PT Short Term Goals Short Term Goals Time Frame: Sep 19, 2016 Transfers (B,C,W/C) (FIM): 4 Gait (FIM): 4 Stairs (FIM): 2 # of Steps: 4 Stairs Level of Assist: 4 PT Strong Nitric Operator Goals Fdc Goals PT Strong Nitric Operator Goals Time Frame: Oct 03, 2016 Transfers (B,C,W/C) (FIM): 6 Sit to Lying (QC): 6 Lying-Sitting on Side/Bed(QC): 6 Sit to Stand (QC): 6 Rollin Roll Left to Right (QC): 6 Chair/Jvv-tm-Qssnu Xfer(QC): 6 Car Transfer (QC): 5 Does the Patient Walk: Yes Gait (FIM): 6 Gait distance (FIM): 3=150 ft Walk 10 feet (QC): 6 Walk 10ft-Uneven Surface(QC): 6 Walk 50ft with 2 Turns (QC): 6 Walk 150 ft (QC): 6 Gait Level of Assist: 6 Gait Assistive Device: FWW Does the Pt use WC or Scooter?: No Stairs (FIM): 5 # of Steps: 8 1 Step (curb) (QC): 6 4 Steps (QC): 6 12 Steps (QC): 88 Stairs Level Of Assist: 6 Picking up an Object (QC): 5 PT Plan Problem List Problem List: Activity Tolerance, Functional Strength, Safety Treatment/Plan Treatment Plan: Continue Plan of Care Treatment Plan: Bed Mobility, Education, Functional Activity [place], Functional Strength, Group Therapy, Gait, Safety, Therapeutic Exercise, Transfers Treatment Duration: Oct 03, 2016 Visits Per Week: 10-15 Minutes/Day (M-F): 60-90 Minutes/Day (Sat/H[place]ins): prn Safety Risks/Education Patient Education: Transfer Techniques Teaching Recipient: Patient Teaching Methods: Demonstration, Discussion Response to Teaching: Return Demonstration, Reinforcement Needed Time/GCodes Time In: 1300 Time Out: 1331 Total Billed Treatment Time: 31 Total Billed Treatment visit EX 12 GT 19 LEIA PARRA PT Sep 12, 2016 13:34
[2016-09-12] MEDS: CATHETER FLUSH 10 ML SYR IV SCH ×2 (14:18→20:23)
--- NOTE | 2016-09-12 15:50 | Occupational Therapy Eval ---
OT Evaluation-General/PLF Medical Diagnosis Admission Date Sep 12, 2016 at 10:00 Medical Diagnosis: CVA Onset Date: Sep 10, 2016 Therapy Diagnosis Therapy Diagnosis: weakness, decr self care, decr coordination L UE, decr functional mobility Height/Weight Height (Feet): 5 Height (Inches): 5.00 Weight (Pounds): 171 Weight (Ounces): 5.0 Precautions Precautions/Isolations: Fall Prevention, Standard Precautions Weight Bear Status Location Restriction: LE Bilateral Referral Physician: Roman Referral Reason: Evaluation/Treatment Medical History Pertinent Medical History: Arthritis, HTN Additional Medical History Pt has benign brain tumor that affects her balance when getting up or lying down. Current History Pt developed L sided facial droop and UE weakness. Received tPA and seen for PT , OT and speech in acute care Reviewed History: Yes Social History Home: Single Level Current Living Status: Spouse Entry Into Home: Stairs With Railing Steps Into Home: 3 ADL-Prior Level of Function ADL PLOF Comments Pt was independent with all basic self care tasks prior to event. She is very active in her community, getting physical therapy, grandson with recent surgery. 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 Pain 0/10 but also indicated IV in R wrist is painful and gets bumped when she toilets Appearance Alert, cooperative Mental Status/Objective Patient Orientation: Person, Place, Time, Situation Attachments: IV (in R wrist), Telemetry Current Glasses/Contacts: Yes Hearing Aids: No ("But I need them but don't want to spend the money") Dentures/Partials: No Hand Dominance: Right Upper Extremity ROM Grossly WFL bilaterally AROM Upper Extremity Coordination Impaired on L, WFL on R Upper Extremity Sensation Pt reports no problems bilat except L hand "a little tingly" and drifts Upper Extremity Strength R UE 4/5 L UE 3-/5 at shoulder, 3+/5 elbow, forearm, wrist and hand Can reach overhead with L UE but not sustain movement against gravity Edema: No UE edema noted Pt denies any L visual field loss or neglect ADL-Treatment ADL-Current Declined bathing since she already had a bath today Functional [place] Measure 0=Not Assessed/NA 4=Minimal Assistance 1=Total Assistance 5=Supervision or Setup 2=Maximal Assistance 6=Modified [place] 3=Moderate Assistance 7=Complete IndependenceIRFPAI Quality Coding Scale 6 Independent with activity with or without an assistive device 5 Patient requires set up or clean up by helper. Patient completes activity by themselves 4 Supervision or touching assist (CGA). [place] provide cues , steadying assist 3 The helper provides less than half the effort to complete the activity 2 The helper provides more than half the effort to complete the activity 1 Dependent. The helper does all the effort to complete an activity 7 Patient refused to complete or attempt activity 9 The patient did not perform the activity before the current illness or injury 88 Not attempted due to Medical conditions or safety concerns Eating (FIM): 5 (sestup) Eating (QC): 5 Upper Body Dressing (FIM): 4 (CGA to stand to put bra and shirt on. Difficulty hooking bra in front and turning it around, FWW) Upper Body Dressing (QC): 4 Lower Body Dressing (FIM): 4 (CGA when standing to pull pants up. Min assist to get pants over hips, FWW) Lower Body Dressing (QC): 4 (CGA) On/Off Footwear (QC): 4 (slipped shoes off and on) Toileting (FIM): 4 (CGA. Pt used glove on R hand over IV and said it helped keep IV from getting soiled and caught on clothing) Toileting Hygiene (QC): 4 (CGA) Transfers (B, C, W/C) (FIM): 4 (Min assist, skilled cues for hand placement, FWW with LOB but self corrected.) Toilet/Commode Transfer (FIM): 4 (min assist getting off toilet, grab bar, FWW. Skilled cues for hand placement) Toilet Transfer (QC): 3 (min assist) All ADLs took longer than usual. Pt needed skilled cues to use L hand during ADLs Education OT Patient Education: Modified ADL techniques, Progress toward Goal/Update tx plan, Purpose of tx/functional activities, Rehab process, Transfer techniques, Use of adapted equipment Teaching Recipient: Patient Teaching Methods: Demonstration, Discussion Response to Teaching: Verbalize Understanding, Return Demonstration, Reinforcement Needed OT Short Term Goals Short Term Goals Time Frame: Sep 19, 2016 Grooming(FIM): 5 Upper Body Dressing(FIM): 5 Lower Body Dressing(FIM): 5 Toileting(FIM): 5 Transfers (B,C,W/C) (FIM): 4 Toilet/Commode Transfer(FIM): 5 Additional Short Term Goals: 2-Verbalize Understanding, 3-ImproveStrength/Laurence 1=Demonstrate adherence to instructed precautions during ADL tasks. 2=Patient will verbalize/demonstrate understanding of assistive devices/ modifications for ADL. 3=Patient will improve strength/tolerance for activity to enable patient to perform ADL's. OT Acid Loader Goals Acid Loader Goals Time Frame: Oct 04, 2016 Eating (FIM): 6 Eating (QC): 6 Oral Hygiene (QC): 6 Grooming(FIM): 6 Bathing(FIM): 6 Shower/Bathe Self (QC): 6 Upper Body Dressing(FIM): 6 Upper Body Dressing (QC): 6 Lower Body Dressing(FIM): 6 Lower Body Dressing (QC): 6 On/Off Footwear (QC): 6 Toileting(FIM): 6 Toileting Hygiene (QC): 6 Toilet/Commode Transfer(FIM): 6 Toilet/Commode Transfer (QC): 6 Shower Transfer(FIM): 6 Increase bilat UE strength to 5/5 Additional Goals: 2-Verbalize Understanding, 3-ImproveStrength/Laurence 1=Demonstrate adherence to instructed precautions during ADL tasks. 2=Patient will verbalize/demonstrate understanding of assistive devices/ modifications for ADL. 3=Patient will improve strength/tolerance for activity to enable patient to perform ADL's. OT Education/Plan Problem List/Assessment Assessment: Decreased UE Strength, Dependent Transfers, Impaired Coordination, Impaired Funct Balance, Impaired Self-Care Skills Pt would benefit from skilled OT to increase her independence in basis self care to allow her to return home to live safely with after CVA with L sided weakness and incoordination, decr functional mobility with all impact her self care abilities Discharge Recommendations Plan/Recommendations: Continue POC Target Placement home with spouse Treatment Plan/Plan of Care Treatment,Training & Education: Yes Patient would benefit from OT for education, treatment and training to promote independence in ADL's, mobility, safety and/or upper extremity function for ADL' s. Plan of Care: ADL Retraining, Functional Mobility, Group Exercise/Act as Ind ( education, exercise, activity tolerance, coordination, functional activities, balance), UE Funct Exercise/Act, UE Neuromus Re-Ed/Coord Treatment Duration: Oct 04, 2016 # of days/week 5-6 Visits Per Week: 10-11 Minutes/Day (M-F): 75-90 Minutes/Day (Sat/Hankins): 75-90 Rehab Potential: Good Time/GCodes Start Time: 11:00 Stop Time: 11:55 Total Time Billed (hr/min): 55 Billed Treatment Time visit, 15 minutes eval high complexity, 40 minutes ADL CAMPBELL CHOPRA OT Sep 12, 2016 15:50
--- NOTE | 2016-09-12 16:22 | Occupational Ther Daily Note ---
OT Current Status-Daily Note Subjective Pt sitting in recliner. No pain reported. Agreeable to therapy. Appearance Alert, cooperative Mental Status/Objective Functional [place] Measure 0=Not Assessed/NA 4=Minimal Assistance 1=Total Assistance 5=Supervision or Setup 2=Maximal Assistance 6=Modified [place] 3=Moderate Assistance 7=Complete [place] ADL-Treatment Functional [place] Measure 0=Not Assessed/NA 4=Minimal Assistance 1=Total Assistance 5=Supervision or Setup 2=Maximal Assistance 6=Modified [place] 3=Moderate Assistance 7=Complete IndependenceIRFPAI Quality Coding Scale 6 Independent with activity with or without an assistive device 5 Patient requires set up or clean up by helper. Patient completes activity by themselves 4 Supervision or touching assist (CGA). [place] provide cues , steadying assist 3 The helper provides less than half the effort to complete the activity 2 The helper provides more than half the effort to complete the activity 1 Dependent. The helper does all the effort to complete an activity 7 Patient refused to complete or attempt activity 9 The patient did not perform the activity before the current illness or injury 88 Not attempted due to Medical conditions or safety concerns Toileting (FIM): 4 Toilet/Commode Transfer (FIM): 4 Other Treatment Pt ambulated to gym, FWW, min assist, stumbling a couple times with L foot. Standardized testing was performed for strength and coordination (see results below). Pt ambulated back to room FWW, min assist. Toilet transfer min assist, help steering walker. BSC over toilet, grab bar. Pt managed clothing and hygiene , close SBA, FWW. Pt ambulated to sink to wash and dry hands, FWW, min assist. Pt ambulated to recliner, spouse in room, call light in reach, all needs met. Box & Blocks Mean R 54 65.0 +/- 7.1 L 30 63.6 +/- 7.4 9 hole peg R :22 21.5 +/- 2.9 L :48 24.6 +/-4.3 Electric Refrigerator Preparer R 55,53,50 lb Average 53 49.6 L 60,53,52 Average 55 41.5 Lat Pinch R 10 20.5 L 11 19.1 3-Jaw R 11 18.7 L 8 18.3 Tip R 10 14.0 L 5 13.9 Standardized UE testing shows finish specialist strength is within normal range in both hands , pinches are lower than norms for her age and especially L tip pinch. Gross motor coordination Box [place] Blocks and fine motor coordination ( hole peg show L about twice as slow as right Education OT Patient Education: Purpose of tx/functional activities Teaching Recipient: Patient Teaching Methods: Demonstration, Discussion Response to Teaching: Verbalize Understanding, Return Demonstration OT Short Term Goals Short Term Goals Time Frame: Sep 19, 2016 Grooming(FIM): 5 Upper Body Dressing(FIM): 5 Lower Body Dressing(FIM): 5 Toileting(FIM): 5 Transfers (B,C,W/C) (FIM): 4 Toilet/Commode Transfer(FIM): 5 Additional Short Term Goals: 2-Verbalize Understanding, 3-ImproveStrength/Laurence 1=Demonstrate adherence to instructed precautions during ADL tasks. 2=Patient will verbalize/demonstrate understanding of assistive devices/ modifications for ADL. 3=Patient will improve strength/tolerance for activity to enable patient to perform ADL's. OT Snf Goals Snf Goals Time Frame: Oct 04, 2016 Eating (FIM): 6 Eating (QC): 6 Oral Hygiene (QC): 6 Grooming(FIM): 6 Bathing(FIM): 6 Shower/Bathe Self (QC): 6 Upper Body Dressing(FIM): 6 Upper Body Dressing (QC): 6 Lower Body Dressing(FIM): 6 Lower Body Dressing (QC): 6 On/Off Footwear (QC): 6 Toileting(FIM): 6 Toileting Hygiene (QC): 6 Toilet/Commode Transfer(FIM): 6 Toilet/Commode Transfer (QC): 6 Shower Transfer(FIM): 6 Increase bilat UE strength to 5/5 Additional Goals: 2-Verbalize Understanding, 3-ImproveStrength/Laurence 1=Demonstrate adherence to instructed precautions during ADL tasks. 2=Patient will verbalize/demonstrate understanding of assistive devices/ modifications for ADL. 3=Patient will improve strength/tolerance for activity to enable patient to perform ADL's. OT Education/Plan Problem List/Assessment Pt would benefit from skilled OT to increase her independence in basis self care to allow her to return home to live safely with after CVA with L sided weakness and incoordination, decr functional mobility with all impact her self care abilities Discharge Recommendations Plan/Recommendations: Continue POC Treatment Plan/Plan of Care Patient would benefit from OT for education, treatment and training to promote independence in ADL's, mobility, safety and/or upper extremity function for ADL' s. Plan of Care: ADL Retraining, Functional Mobility, Group Exercise/Act as Ind ( education, exercise, activity tolerance, coordination, functional activities, balance), UE Funct Exercise/Act, UE Neuromus Re-Ed/Coord Treatment Duration: Oct 04, 2016 Visits Per Week: 10-11 Minutes/Day (M-F): 75-90 Minutes/Day (Sat/H[place]ins): 75-90 Rehab Potential: Good Time/GCodes Start Time: 14:05 Stop Time: 14:40 Total Time Billed (hr/min): 35 Billed Treatment Time visit, ADL 5 min, Neuromuscular 30 min CAMPBELL CHOPRA OT Sep 12, 2016 16:22
[2016-09-12 18:28] VITALS: BP 140/72
[2016-09-12] MEDS: ATORVASTATIN 20 MG (LIPITOR) TABLET PO SCH (20:22)
[2016-09-12] MEDS: DOCUSATE SODIUM 100 MG (COLACE) CAP PO SCH (20:22)
[2016-09-12] MEDS: meTOprolol TARTRATE 25 MG (LOPRESSOR) TABLET PO SCH (20:22)
[2016-09-13] MEDS: CATHETER FLUSH 10 ML SYR IV SCH (05:20)
[2016-09-13 06:00] VITALS: BP 184/98
[2016-09-13 06:47] LABS: BASOPHILS % (AUTO) 0 % (0-10); EOSINOPHILS # (AUTO) 0.1 10^3/uL (0.0-0.3); EOSINOPHILS % (AUTO) 1 % (0-10); LYMPHOCYTES # (AUTO) 3.5 X 10^3 (1.0-4.0); LYMPHOCYTES % (AUTO) 37 % (12-44); MEAN CORPUSCULAR HEMOGLOBIN 32 PG (25-34); MEAN CORPUSCULAR HGB CONC 34 G/DL (32-36); MEAN CORPUSCULAR VOLUME 94 FL (80-99); MEAN PLATELET VOLUME 10.2 FL (7.4-10.4); MONOCYTES # (AUTO) 0.6 X 10^3 (0.0-1.0); MONOCYTES % (AUTO) 6 % (0-12); NEUTROPHILS # (AUTO) 5.2 X 10^3 (1.8-7.8); NEUTROPHILS % (AUTO) 55 % (42-75); PLATELET COUNT 343 10^3/uL (130-400); RED BLOOD COUNT 4.32 10^6/uL (4.35-5.85); RED CELL DISTRIBUTION WIDTH 12.7 % (10.0-14.5); WHITE BLOOD COUNT 9.4 10^3/uL (4.3-11.0)
[2016-09-13 07:15] LABS: ALANINE AMINOTRANSFERASE 17 U/L (0-55); ALBUMIN 3.9 G/DL (3.2-4.5); ANION GAP 10 MMOL/L (5-14); ASPARTATE AMINO TRANSFERASE 15 U/L (5-34); BILIRUBIN,TOTAL 0.8 MG/DL (0.1-1.0); BLOOD UREA NITROGEN 17 MG/DL (7-18); BUN/CREATININE RATIO 23; CALCIUM 9.9 MG/DL (8.5-10.1); CARBON DIOXIDE 23 MMOL/L (21-32); CHLORIDE 106 MMOL/L (98-107); CREATININE SERUM 0.73 MG/DL (0.60-1.30); GFR ESTIMATED > 60; GLUCOSE 135 MG/DL (70-105); SODIUM 139 MMOL/L (135-145); TOTAL PROTEIN 6.7 G/DL (6.4-8.2)
--- NOTE | 2016-09-13 08:02 | Physical Therapy Daily Note ---
PT Daily Note-Current Subjective Pt. agrees to Rx. States she only slept 4 hrs last night. States she is trying to think positive but is discouraged in this situation. States the bed is uncomfortable and explains how many pillows she uses at home(5) and where etc. This FLAME HARDENER demonstrated the bed foot elevation option etc and provided pt more pillows. Pain Numeric Pain Scale: 0-No Pain Mental Status Patient Orientation: Normal For Age Transfers Functional [place] Measure 0=Not Assessed/NA 4=Minimal Assistance 1=Total Assistance 5=Supervision or Setup 2=Maximal Assistance 6=Modified [place] 3=Moderate Assistance 7=Complete IndependenceIRFPAI Quality Coding Scale 6 Independent with activity with or without an assistive device 5 Patient requires set up or clean up by helper. Patient completes activity by themselves 4 Supervision or touching assist (CGA). [place] provide cues , steadying assist 3 The helper provides less than half the effort to complete the activity 2 The helper provides more than half the effort to complete the activity 1 Dependent. The helper does all the effort to complete an activity 7 Patient refused to complete or attempt activity 9 The patient did not perform the activity before the current illness or injury 88 Not attempted due to Medical conditions or safety concerns Transfers (B, C, W/C) (FIM): 4 Scootin Rollin Supine to/from Sit: 4 Sit to/from Stand: 5 Bed to/from Chair: 5 pt. sit to sup SBA, sup to sit pt. needed CGA and much instruction from flat surface and use of hands and leverage position. Gait Training Does the Patient Walk?: Yes Gait (FIM): 4 Distance (FIM): 3=150 ft Gait Level of Assist: 4 Gait Persons Needed: 1 Gait Assistive Device: FWW pt. requires some direction and skilled verbal cues as well as CGA secondary to poor control with LLE and foot placement, poor knee extension, sloppy impulsive movement, cues every step and attention to awareness of her movement pattern Exercises Supine Ex: Bridging, Ankle pumps, Quad Set, Rolling, Heel Slides, Short Arc Quads, Scooting, Straight leg raise, Hip abd/add Supine Reps: 15 Seated Therapy Exercises: Ankle pumps, Sit to stand, Long arc quads, Hip flexion Seated Reps: 10 Treatments pt. toileted managing pants and cleaning as well as face washing and hands with CGA. Assessment Current Status: Good Progress temporary dizziness with transition of movement plagues pt. but subsides given some time PT Short Term Goals Short Term Goals Time Frame: Sep 19, 2016 Transfers (B,C,W/C) (FIM): 4 Gait (FIM): 4 Stairs (FIM): 2 # of Steps: 4 Stairs Level of Assist: 4 PT Principal Strategist Goals Mcc Goals PT Principal Strategist Goals Time Frame: Oct 03, 2016 Transfers (B,C,W/C) (FIM): 6 Sit to Lying (QC): 6 Lying-Sitting on Side/Bed(QC): 6 Sit to Stand (QC): 6 Rollin Roll Left to Right (QC): 6 Chair/Pde-bi-Vitzj Xfer(QC): 6 Car Transfer (QC): 5 Does the Patient Walk: Yes Gait (FIM): 6 Gait distance (FIM): 3=150 ft Walk 10 feet (QC): 6 Walk 10ft-Uneven Surface(QC): 6 Walk 50ft with 2 Turns (QC): 6 Walk 150 ft (QC): 6 Gait Level of Assist: 6 Gait Assistive Device: FWW Does the Pt use WC or Scooter?: No Stairs (FIM): 5 # of Steps: 8 1 Step (curb) (QC): 6 4 Steps (QC): 6 12 Steps (QC): 88 Stairs Level Of Assist: 6 Picking up an Object (QC): 5 PT Plan Treatment/Plan Treatment Plan: Continue Plan of Care Treatment Plan: Bed Mobility, Education, Functional Activity Laurence, Functional Strength, Group Therapy, Gait, Safety, Therapeutic Exercise, Transfers Treatment Duration: Oct 03, 2016 Visits Per Week: 10-15 Minutes/Day (M-F): 60-90 Minutes/Day (Sat/Hankins): prn Safety Risks/Education Patient Education: Gait Training, Transfer Techniques Teaching Recipient: Patient Teaching Methods: Demonstration, Discussion Response to Teaching: Verbalize Understanding, Return Demonstration, Reinforcement Needed Time/GCodes Time In: 705 Time Out: 805 Total Billed Treatment Time: 60 Total Billed Treatment 1,FA30m,EX15m,GT15m G Codes Necessary: BHAVYA Bolanos FLAME HARDENER Sep 13, 2016 08:02
--- NOTE | 2016-09-13 08:22 | HISTORY AND PHYSICAL ---
DATE OF ADMISSION: 09/12/2016 CHIEF COMPLAINT: Difficulty with walking. HISTORY OF PRESENT ILLNESS: The patient is a 71-year-old female with a past medical history significant for meningioma and hypertension who had been independent prior to this and living with her spouse in [place] who was admitted on 09/10 to the ICU after receiving TPA for CVA with left-sided weakness. Her symptoms improved over time. She continued to have a small amount of facial droop. The next day was able to pass a swallow evaluation. MRI on 09/11 showed a small right thalamic acute infarct, as well as a stable meningoma which she has been followed as an outpatient. She received potassium and magnesium replacement and while in the ICU under the care of Dr. Chu and Ki, hospitalist service, she was started on a statin. An echo was done without evidence of vegetation. Her tooth cutter is considering a HETAL in the future. She is referred to Inpatient Rehabilitation Unit for ongoing stroke rehabilitation due to decline in functional independence. Currently she requires assistance for ADLs and mobility skills. She is reported to be continent of bowel and bladder. She is somewhat hard of hearing. She is min to mod assist for transfers. Min assist for ambulation short distances with a front wheeled walker. She is set up for eating and grooming. Min assist for upper body dressing. Mod assist for lower body dressing and toileting. Her serum potassium was low yesterday and she was provided with replacement. PAST MEDICAL HISTORY: 1. Meningioma. 2. Hyperlipidemia. 3. Hypokalemia. 4. Hypertension. PAST SURGICAL HISTORY: As per above. ALLERGIES: [place] FAMILY HISTORY: Noncontributory. SOCIAL HISTORY: She lives with her spouse, had been independent. She had been caring for 93-year-old mother who resides in an assisted living facility performs much of her care and transportation. She has a grandson with recent heart surgery. REVIEW OF SYSTEMS: Ten-point review of systems is significant for mild left-sided weakness, gait imbalance. MEDICATIONS: 1. Plavix 75 mg p.o. daily. 2. ASA 81 mg p.o. daily. 3. Hydrochlorothiazide 25 mg p.o. daily. 4. Naprosyn 250 mg p.o. daily. 5. Lopressor 12. p.o. b.i.d. 6. Colace 100 mg p.o. b.i.d. 7. Lipitor 20 mg p.o. at bedtime. PHYSICAL EXAMINATION: Significant for a pleasant female, appearing her stated age, alert and oriented, sitting up in chair, in no acute distress. VITAL SIGNS: Blood pressure is 138/77, respirations 20, pulse 78. She is afebrile. O2 sat 98% on room air. HEENT: Vision and speech are grossly intact. She has mild hearing loss. No oral lesion is noted. NECK: Supple without mass. HEART: Regular rhythm. LUNGS: Clear. ABDOMEN: Soft, nontender. Bowel sounds present. EXTREMITIES: No lower leg edema. No calf tenderness. MUSCULOSKELETAL: She has functional active range of motion in all 4 extremities. NEUROLOGICAL: Sensation is grossly intact to touch. Hearing mildly impaired. Strength on the right lower extremity is 5/5, left lower extremity 4-/5 except for dorsiflexion at the ankle, which is 3/5 strength. Functional left upper limb with only mild weakness. Strength on the right upper limb 5/5. Cognition appears grossly intact. IMPRESSION: 1. Ambulatory dysfunction secondary to small right thalamic acute infarct status post TPA with improvement but with some residual left-sided weakness and gait imbalance. 2. History of meningioma followed as an outpatient. 3. Hypokalemia provided with replacement. 4. Hypomagnesemia provided with replacement. 5. Hyperlipidemia, placed on statin. 6. Hypertension, controlled with medication. PLAN: The patient will have a comprehensive program of inpatient rehabilitation with a goal of maximizing level of functional independence prior to discharge home with spouse. The patient will have PT/OT 90 minutes per day, each discipline, for gait strengthening, conditioning, balance, ADLs, any patient/family/caregiver training necessary, any adaptive equipment and training necessary. Speech therapy to do cognitive assessment and treat as indicated. Rehabilitation nursing to assist with bowel, bladder, skin care, medication administration. banking services clerk to assist with discharge planning, community reentry. Follow-up with Dr. Chu and Ki, hospitalist services per their schedule. Routine admission labs. ESTIMATED LENGTH OF STAY: Two weeks. PROGNOSIS: Rehab prognosis appears good for goal of discharging home with spouse, modified independent to supervision for ADLs and mobility skills. Diet is heart healthy. Code status is full code. POST ADMISSION PHYSICIAN ASSESSMENT: The preadmission screen agrees with the post admission assessment that the patient is a good candidate for inpatient rehabilitation. She appears to be well motivated to participate in 3 hours of therapy a day. She should be able to tolerate 3 hours of therapy a day. She should benefit from the 3 hours of therapy a day. She has reasonable discharge plan, reasonable discharge rehabilitation goals and a supportive family. The goals would be to return home with spouse, modified independent to supervision for ADLs and mobility skills. She has various comorbidities that need to be closely monitored with medications and treatments adjusted on a daily basis as needed. These include her electrolyte abnormalities and her hypertension. Will utilize Plavix and ASA for DVT prophylaxis. BARRIERS TO DISCHARGE: Barriers discharge for this patient who had been independent prior to this are for her to be modified independent to supervision for ADLs and mobility skills prior to discharge home with spouse so as to lessen the burden of the caregivers. RISKS FOR THIS PATIENT: Include: 1. Recurrent stroke. 2. DVT. 3. Pulmonary embolism. 4. Urinary retention. 5. UTI. 6. Respiratory infection. 7. Aspiration. 8. Poorly controlled hypertension. 9. Worsening electrolyte. 10. Worsening anxiety. Job ID: [id number] Dictated Date: 09/12/2016 13:42:39 [employer]fusion Date: 09/13/2016 08:02:08/ha GODFREY
--- NOTE | 2016-09-13 08:26 | PM & R (SOAP) Progress Note ---
Subjective Subjective/Events-last exam Patient was seen in her room this AM Patient min assist for transfers Adjusting well to unit Review of Systems Neurological: : Weakness Objective Exam Last Set of Vital Signs Vital Signs Date Time Temp Pulse Resp B/P Pulse Ox O2 Delivery O2 Flow Rate FiO2 09/13/16 06:00 96.9 100 18 184/98 98 Room Air Capillary Refill : I&O Bad tableGeneral: Alert, Oriented X3, Cooperative, No Acute Distress HEENT: Atraumatic, PERRLA, EOMI, Mucous Memb Moist/[place] Neck: Supple, No JVD Lungs: Clear to Auscultation Heart: Regular Rate Abdomen: Normal Bowel Sounds, Soft, No Tenderness Extremities: No Edema Neuro: Other (mild left HP) Results Lab Laboratory Tests 09/13/16 06:15: Alanine Aminotransferase (ALT/SGPT) 17, Albumin 3.9, Alkaline Phosphatase 82, Anion Gap 10, Aspartate Amino Transf (AST/SGOT) 15, BUN/Creatinine Ratio 23, Basophils # (Auto) 0.0, Basophils (%) (Auto) 0, Blood Urea Nitrogen 17, Calcium Level 9.9, Carbon Dioxide Level 23, Chloride Level 106, Creatinine 0.73, Eosinophils # (Auto) 0.1, Eosinophils (%) (Auto) 1, Estimat Glomerular Filtration Rate > 60, Glucose Level 135H, Hematocrit 40, Hemoglobin 13.6, Lymphocytes # (Auto) 3.5, Lymphocytes (%) (Auto) 37, Mean Corpuscular Hemoglobin 32, Mean Corpuscular Hemoglobin Concent 34, Mean Corpuscular Volume 94, Mean Platelet Volume 10.2, Monocytes # (Auto) 0.6, Monocytes (%) (Auto) 6, Neutrophils # (Auto) 5.2, Neutrophils (%) (Auto) 55, Platelet Count 343, Potassium Level 4.0, Red Blood Count 4.32L, Red Cell Distribution Width 12.7, Sodium Level 139, Total Bilirubin 0.8, Total Protein 6.7, White Blood Count 9.4 Assessment/Plan Assessment Rt lacunar thalamic infarct with mild left HP s/p TPA HTN controlled Plan Continue PT/OT ST to see F/U with DEANNA Berry MD Sep 13, 2016 08:25
[2016-09-13] MEDS: NAPROXEN 250 MG (NAPROSYN) TABLET PO SCH (08:30)
[2016-09-13] MEDS: HYDROCHLOROTHIAZIDE 25 MG (HCTZ) TAB PO SCH (08:30)
[2016-09-13] MEDS: CLOPIDOGREL 75 MG (PLAVIX) TABLET PO SCH (08:30)
[2016-09-13] MEDS: meTOprolol TARTRATE 25 MG (LOPRESSOR) TABLET PO SCH ×3 (08:30→20:48)
[2016-09-13] MEDS: ASPIRIN E.C. 81 MG (ECOTRIN) TAB PO SCH (08:31)
[2016-09-13] MEDS: DOCUSATE SODIUM 100 MG (COLACE) CAP PO SCH ×2 (08:31→20:48)
--- NOTE | 2016-09-13 09:36 | Cardiology Progress Note ---
Subjective Subjective/Events-last exam patient was seen and evaluated, laying down in bed, still having weakness on the left side with facial droop. Denied any chest pain. Denied any palpitation although she is borderline tachycardic. Review of Systems General: No Chills, No Night Sweats, No Fatigue, No Malaise, No Appetite, No Other HEENT: No Head Aches, No Visual Changes, No Eye Pain, No Ear Pain, No Dysphasia , No Sinus Congestion, No Post Nasal Drip, No Sore Throat, No Other Pulmonary: No Dyspnea, No Cough, No Pleuritic Chest Pain, No Other Cardiovascular: No: Chest Pain, Edema, Lt Headedness, Orthopnea, Other, Palpitations, Paroxysmal Noc. Dyspnea Objective-Cardiology Exam Last Set of Vital Signs Vital Signs 09/13/16 06:00 Temp 96.9 Pulse 100 Resp 18 B/P 184/98 Pulse Ox 98 O2 Delivery Room Air Capillary Refill : I&O Bad tableGeneral: Alert, Oriented X3, Cooperative, No Acute Distress HEENT: Atraumatic, PERRLA, EOMI, Mucous Memb Moist/[place] Neck: Supple, No JVD Lungs: Clear to Auscultation Heart: Regular Rate, Normal S1, Normal S2 Abdomen: Normal Bowel Sounds, Soft, No Tenderness Extremities: No Clubbing, No Cyanosis, No Edema Skin: No Rashes, No Breakdown Neuro: Normal Speech, Other (left side weakness in the lower except he more than the upper extremity, mild facial droop) Results Lab Laboratory Tests 09/13/16 06:15 A/P-Cardiology Admission Diagnosis Acute CVA Hypertension Hyperlipidemia Sinus tachycardia Assessment/Plan Acute CVA with left sided weakness- CT Head with 3cm calcified meningioma, otherwise negative, given tPA in ER. MRI brain revealed right thalmus 1.5cm acute infarct. Continues to have left sided facial drooping with left sided weakness. On Plavix and ASA. Carotid US revealed nonobstructive disease bilaterally. echocardiogram showed normal left ventricular size and systolic function, ejection fraction 60 percent, left atrium is in the upper normal limit in size. Pulmonary artery pressure is normal. Consideration for a HETAL versus reveal device implantation especially with her tachycardia. Sinus tachycardia with PVC's, slightly better, still borderline tachycardic, continue on Lopressor and monitor. Hypertension, started on beta blockers, continue to monitor blood pressure Hyperlipidemia, on Lipitor. Monitor lipids Hx meningioma- CT head revealed 3cm calcified meningioma. Clinical Quality Measures DVT/VTE Risk/Contraindication: Risk Factor Score Per Nursin RFS Level Per Nursing on Admit: 4+=Very High MECHELLE BILLY MD Sep 13, 2016 09:36
--- NOTE | 2016-09-13 10:10 | Progress Note-Hospitalist ---
Progress Note Progress Notes/Assess & Plan Date Seen 09/13/16 Diagonsis/Assessment & Plan Patient Interview: Pt states that she has been working extensively with PT and feels good Pt states that she is having BMs Physical exam was stable AFVSS, Pleasant, O x 3 RRR, CTAB No edema Assessment: CVA s/p TPA left hand and foot weakness HLP Plan: Continue rehab Scribed by Les Foster under the direct supervision of Dr. Emerson. JOSE A EMERSON DO Sep 13, 2016 10:10
--- NOTE | 2016-09-13 11:41 | ST Cognitive Linguistic Eval ---
Speech Evaluation-General Medical Diagnosis CVA Onset Date: Sep 10, 2016 Therapy Diagnosis Therapy Diagnosis: Questionable Cognitive Impairment Precautions Precautions/Isolations: Fall Prevention, Standard Precautions Referral Referring Physician: Dr. Santos Owens Reason for Referral: Evaluation/Treatment Cognitive Evaluation Medical History Pertinent Medical History: Arthritis, HTN Reviewed History: Yes Social History Current Living Status: Spouse Speech PLF-Current Status Prior Level of Function The patient denied cognitive linguistic challenges prior to admission or throughout her hospital stay. Subjective The patient was recently admitted to [facility] following a CVA. The patient greeted the clinician appropriately and agreed to participate in the cognitive evaluation on this date. Language Eval: Auditory Comprehends Simple Yes/No Ques: Functional Indent/Objects Multiple Calix: Functional Ident/Pics in Multiple Calix: Functional Follows 1-Step Commands: Functional Follows Complex Directions: Functional Follows General Conversations: Functional Language Eval: Verbal Language Completes Spontaneous Greeting: Functional Produces Auto, Serial Info: Functional Imitates Simple Words/Phrases: Functional Word Finding: Functional Requests Basic Needs: Functional States Basic Personal Info: Functional Expresses Complex Ideas: Functional Cognitive Patient Orientation The patient is alert and oriented to place, date, day of week, month, and year. Objective Cognitive Domain Attention: Moderate Memory: WNL Problem Solving: Functional Executive Functions: WNL Objective Oral Motor/Speech Production The patient demonstrated mildly reduced left labial strength which results in minimally imprecise articulation. The patient remains 100% intelligible in known and unknown contexts. Impression The patient demonstrated mild dysarthria consistent with flaccid-type. Communication/Social Cognition Comprehension: 6 Expression: 6 Social Interaction: 6 Problem Solvin Memory: 6 Speech Patient Assess Expression of Ideas/Wants: Expression (4) Understanding [place] Content: Understands (4) Brief Interview-Mental Status: Yes Repetition of Three Words: Three (3) Temporal Orientation: Year: Correct (3) Temporal Orientation: Month: Accurate within 5 days(2) Temporal Orientation: Day: Correct (1) Recall : Wear: Yes, no cue required (2) Recall : Color: Yes, no cue required (2) Recall : Bed: Yes, no cue required (2) Speech Short Term Goals Short Term Goals Short Term Goals 1. The patient will demonstrate oral motor exercises with 90% accuracy, independently. Time Frame-STG: One Week Speech Transmission And Coordination Engineer Goals Residential Goals 1. The patient will demonstrate increased articulatory precision (as independently reported by patient) for improved verbal communication. Time Frame: Two Weeks Comprehension: 6 Expression: 7 Social Interaction: 6 Problem Solvin Memory: 6 Speech-Plan Treatment Plan Speech Therapy Treatment Plan: Continue Plan of Care Treatment Duration: Sep 27, 2016 # of days/week Three Visits Per Week: Three Rehab Potential: Good Safety Risks/Education Teaching Recipient: Patient Teaching Methods: Discussion Response to Teaching: Verbalize Understanding Education Topics Provided: Plan of Care Time Speech Therapy Time In: 10:00 Speech Therapy Time Out: 10:15 Total Billed Time: 15 Billed Treatment Time 1, DORA THOMSON Sep 13, 2016 11:41
--- NOTE | 2016-09-13 13:27 | Occupational Ther Daily Note ---
OT Current Status-Daily Note Subjective Pt seen in room, up in recliner, agreeable to OT. No pain mentioned Appearance Alert, cooperative Mental Status/Objective Functional [place] Measure 0=Not Assessed/NA 4=Minimal Assistance 1=Total Assistance 5=Supervision or Setup 2=Maximal Assistance 6=Modified [place] 3=Moderate Assistance 7=Complete [place] ADL-Treatment Functional [place] Measure 0=Not Assessed/NA 4=Minimal Assistance 1=Total Assistance 5=Supervision or Setup 2=Maximal Assistance 6=Modified [place] 3=Moderate Assistance 7=Complete IndependenceIRFPAI Quality Coding Scale 6 Independent with activity with or without an assistive device 5 Patient requires set up or clean up by helper. Patient completes activity by themselves 4 Supervision or touching assist (CGA). [place] provide cues , steadying assist 3 The helper provides less than half the effort to complete the activity 2 The helper provides more than half the effort to complete the activity 1 Dependent. The helper does all the effort to complete an activity 7 Patient refused to complete or attempt activity 9 The patient did not perform the activity before the current illness or injury 88 Not attempted due to Medical conditions or safety concerns Grooming (FIM): 5 (Pt brushed teeth and combed hair, setup. washed face and hands in shower) Oral Hygiene (QC): 5 Bathing (FIM): 5 (Pt washed and dried all parts in shower, using shower bench, grab bars, hand held shower, setup. SBA when standing to wash bottom) Upper Body (FIM): 5 (Easier hooking bra today. Setup) Lower Body Dressing (FIM): 5 (Setup, SBA when standing to pull pants up, with slight LOB x 2 but able to self correct) Toileting (FIM): 5 (SBA, BSC over toilet, grab bars, FWW) Toilet/Commode Transfer (FIM): 4 (Min assist with walker placement, BSc over toilet, FWW, grab bars) Shower Transfer(FIM): 5 (SBA, shower bench, grab bars, FWW) Shower/Bathe Self (QC): 4 Other Treatment In recliner, pt worked on fine motor coordination and pinch strength with red ( medium resistance) theraputty with 1/4 inch beads. Pt also was taught several activities to do for pinch strength. Pt will work on these on her own in her room. pt left up in recliner, all needs met OT Short Term Goals Short Term Goals Time Frame: Sep 19, 2016 Grooming(FIM): 5 Upper Body Dressing(FIM): 5 Lower Body Dressing(FIM): 5 Toileting(FIM): 5 Transfers (B,C,W/C) (FIM): 4 Toilet/Commode Transfer(FIM): 5 Additional Short Term Goals: 2-Verbalize Understanding, 3-ImproveStrength/[place] 1=Demonstrate adherence to instructed precautions during ADL tasks. 2=Patient will verbalize/demonstrate understanding of assistive devices/ modifications for ADL. 3=Patient will improve strength/tolerance for activity to enable patient to perform ADL's. OT Group Home Goals Developer Automatic Goals Time Frame: Oct 04, 2016 Eating (FIM): 6 Eating (QC): 6 Oral Hygiene (QC): 6 Grooming(FIM): 6 Bathing(FIM): 6 Shower/Bathe Self (QC): 6 Upper Body Dressing(FIM): 6 Upper Body Dressing (QC): 6 Lower Body Dressing(FIM): 6 Lower Body Dressing (QC): 6 On/Off Footwear (QC): 6 Toileting(FIM): 6 Toileting Hygiene (QC): 6 Toilet/Commode Transfer(FIM): 6 Toilet/Commode Transfer (QC): 6 Shower Transfer(FIM): 6 Comprehension(FIM): 6 Expression (FIM): 7 Social Interaction(FIM): 6 Problem Solving(FIM): 6 Memory(FIM): 6 Increase bilat UE strength to 5/5 Additional Goals: 2-Verbalize Understanding, 3-ImproveStrength/[place] 1=Demonstrate adherence to instructed precautions during ADL tasks. 2=Patient will verbalize/demonstrate understanding of assistive devices/ modifications for ADL. 3=Patient will improve strength/tolerance for activity to enable patient to perform ADL's. OT Education/Plan Problem List/Assessment Pt would benefit from skilled OT to increase her independence in basis self care to allow her to return home to live safely with after CVA with L sided weakness and incoordination, decr functional mobility with all impact her self care abilities Discharge Recommendations Plan/Recommendations: Continue POC Treatment Plan/Plan of Care Patient would benefit from OT for education, treatment and training to promote independence in ADL's, mobility, safety and/or upper extremity function for ADL' s. Plan of Care: ADL Retraining, Functional Mobility, Group Exercise/Act as Ind ( education, exercise, activity tolerance, coordination, functional activities, balance), UE Funct Exercise/Act, UE Neuromus Re-Ed/Coord Treatment Duration: Oct 04, 2016 Visits Per Week: 10-11 Minutes/Day (M-F): 75-90 Minutes/Day (Sat/Hankins): 75-90 Rehab Potential: Good Time/GCodes Start Time: 10:15 Stop Time: 11:15 Total Time Billed (hr/min): 60 Billed Treatment Time visit, 45 minutes ADL, 15 minutes neuromotor CAMPBELL CHOPRA OT Sep 13, 2016 13:27
--- NOTE | 2016-09-13 15:01 | Therapy Group Daily Note ---
Therapy Daily Group Note Exercises Fine Motor Other/Notes Pt participated socially by introducing self by name, place of and to describe favorite childhood games. Problem solving applied to ask and answer questions to complete cognitive activity. Fine motor activity used to increased dexterity,coordination and strengthening for daily functional tasks. Pt transported back to room. Call light in reach, all needs met. Start Time: 13:00 Stop Time: 14:00 Total Billed Treatment Time: 60 Total Billed Treatment 1-GRP LEIA NESBITT Sep 13, 2016 15:01
[2016-09-13 18:26] VITALS: BP 156/82
[2016-09-13] MEDS ORDERED: ATEN100T PO (19:24)
[2016-09-13] MEDS: ATORVASTATIN 20 MG (LIPITOR) TABLET PO SCH (20:48)
[2016-09-14 06:05] VITALS: BP 156/85
[2016-09-14] MEDS: NAPROXEN 250 MG (NAPROSYN) TABLET PO SCH (08:16)
[2016-09-14] MEDS: HYDROCHLOROTHIAZIDE 25 MG (HCTZ) TAB PO SCH (08:16)
[2016-09-14] MEDS: DOCUSATE SODIUM 100 MG (COLACE) CAP PO SCH ×2 (08:16→20:17)
[2016-09-14] MEDS: meTOprolol TARTRATE 25 MG (LOPRESSOR) TABLET PO SCH ×2 (08:17→20:16)
[2016-09-14] MEDS: CLOPIDOGREL 75 MG (PLAVIX) TABLET PO SCH (08:17)
[2016-09-14] MEDS: ASPIRIN E.C. 81 MG (ECOTRIN) TAB PO SCH (08:17)
--- NOTE | 2016-09-14 11:05 | Physical Therapy Daily Note ---
PT Daily Note-Current Subjective Agreeable to PT. Pt report she wants to walk because she wants to get better. Transfers Functional [place] Measure 0=Not Assessed/NA 4=Minimal Assistance 1=Total Assistance 5=Supervision or Setup 2=Maximal Assistance 6=Modified [place] 3=Moderate Assistance 7=Complete IndependenceIRFPAI Quality Coding Scale 6 Independent with activity with or without an assistive device 5 Patient requires set up or clean up by helper. Patient completes activity by themselves 4 Supervision or touching assist (CGA). [place] provide cues , steadying assist 3 The helper provides less than half the effort to complete the activity 2 The helper provides more than half the effort to complete the activity 1 Dependent. The helper does all the effort to complete an activity 7 Patient refused to complete or attempt activity 9 The patient did not perform the activity before the current illness or injury 88 Not attempted due to Medical conditions or safety concerns Treatments Treatment consisted of gait to the restroom with fWW with CGA. Pt toileted completely with SBA and stood at sink to wash hands with SBA. Pt then ambulated x 150 with FWW with CGA, Initially, she was able to clear the left foot well andhad good coordinated movement; however, with fatigue, she began to have slight foot drop and her coordination diminished--albeit not LOB noted. Pt then rode the Nu Step x 15 minutes to focus on functional strength and activity tolerance to assist with increased gait distance before foot drop and decreased coordination presented. Pt back to room, ambulating 150 with FWW with CGA and in chair post treatment with needs. met. Assessment Current Status: Good Progress Functional progress noted and improved strength and coordination of left LE. Highly motivated and making gains. PT Short Term Goals Short Term Goals Time Frame: Sep 19, 2016 Transfers (B,C,W/C) (FIM): 4 (met 09/14/16) Gait (FIM): 4 (met 08/2116) Stairs (FIM): 2 # of Steps: 4 Stairs Level of Assist: 4 PT Correction Goals Correction Goals PT Motor Vehicle Lecturer Goals Time Frame: Oct 03, 2016 Transfers (B,C,W/C) (FIM): 6 Sit to Lying (QC): 6 Lying-Sitting on Side/Bed(QC): 6 Sit to Stand (QC): 6 Rollin Roll Left to Right (QC): 6 Chair/Gpw-ye-Whbmd Xfer(QC): 6 Car Transfer (QC): 5 Does the Patient Walk: Yes Gait (FIM): 6 Gait distance (FIM): 3=150 ft Walk 10 feet (QC): 6 Walk 10ft-Uneven Surface(QC): 6 Walk 50ft with 2 Turns (QC): 6 Walk 150 ft (QC): 6 Gait Level of Assist: 6 Gait Assistive Device: FWW Does the Pt use WC or Scooter?: No Stairs (FIM): 5 # of Steps: 8 1 Step (curb) (QC): 6 4 Steps (QC): 6 12 Steps (QC): 88 Stairs Level Of Assist: 6 Picking up an Object (QC): 5 PT Plan Problem List Problem List: Activity Tolerance, Functional Strength, Safety, Balance, Gait, Transfer, Bed Mobility Treatment/Plan Treatment Plan: Continue Plan of Care Treatment Plan: Bed Mobility, Education, Functional Activity Lau[place], Functional Strength, Group Therapy, Gait, Safety, Therapeutic Exercise, Transfers Treatment Duration: Oct 03, 2016 Visits Per Week: 10-15 Minutes/Day (M-F): 60-90 Minutes/Day (Sat/Hankins): prn Safety Risks/Education Patient Education: Safety Issues Teaching Recipient: Patient Teaching Methods: Discussion Response to Teaching: Return Demonstration Time/GCodes Time In: 1025 Time Out: 1055 Total Billed Treatment Time: 30 Total Billed Treatment visit GT 15 EX 15 LEIA PARRA PT Sep 14, 2016 11:05
--- NOTE | 2016-09-14 12:13 | Cardiology Progress Note ---
Subjective Subjective/Events-last exam patient is sitting in a chair, feeling better, no new complaint Objective-Cardiology Exam Last Set of Vital Signs Vital Signs 09/14/16 06:05 Temp 97.8 Pulse 92 Resp 20 B/P 156/85 Pulse Ox 95 O2 Delivery Room Air Capillary Refill : I&O Intake and Output 09/14/16 00:00 Intake Total 1100 ml Balance 1100 ml Intake Oral 1100 ml # Voids 9 # Bowel Movements 2 General: Alert, Oriented X3, Cooperative, No Acute Distress HEENT: Atraumatic, PERRLA, EOMI, Mucous Memb Moist/[place] Neck: Supple, No JVD Lungs: Clear to Auscultation Heart: Regular Rate, Normal S1, Normal S2 Abdomen: Normal Bowel Sounds, Soft, No Tenderness Extremities: No Clubbing, No Cyanosis, No Edema Skin: No Rashes, No Breakdown Neuro: Normal Speech, Other (left side weakness in the lower except he more than the upper extremity, mild facial droop) A/P-Cardiology Admission Diagnosis Acute CVA Hypertension Hyperlipidemia Sinus tachycardia Assessment/Plan Acute CVA with left sided weakness- CT Head with 3cm calcified meningioma, otherwise negative, given tPA in ER. MRI brain revealed right thalmus 1.5cm acute infarct. Continues to have left sided facial drooping with left sided weakness. On Plavix and ASA. Carotid US revealed nonobstructive disease bilaterally. echocardiogram showed normal left ventricular size and systolic function, ejection fraction 60 percent, left atrium is in the upper normal limit in size. Pulmonary artery pressure is normal. I will proceed with HETAL evaluation on Friday. Sinus tachycardia with PVC's, better, continue to monitor heart rate and blood pressure Hypertension, started on beta blockers, continue to monitor blood pressure Hyperlipidemia, on Lipitor. Monitor lipids Hx meningioma- CT head revealed 3cm calcified meningioma. Clinical Quality Measures DVT/VTE Risk/Contraindication: Risk Factor Score Per Nursin RFS Level Per Nursing on Admit: 4+=Very High MECHELLE BILLY MD Sep 14, 2016 12:13
[2016-09-14 18:43] VITALS: BP 142/80
[2016-09-14] MEDS: ATORVASTATIN 20 MG (LIPITOR) TABLET PO SCH (20:16)
[2016-09-15 04:03] VITALS: BP 178/88
[2016-09-15] MEDS: NAPROXEN 250 MG (NAPROSYN) TABLET PO SCH (08:24)
[2016-09-15] MEDS: DOCUSATE SODIUM 100 MG (COLACE) CAP PO SCH ×2 (08:25→20:43)
[2016-09-15] MEDS: CLOPIDOGREL 75 MG (PLAVIX) TABLET PO SCH (08:25)
[2016-09-15] MEDS: HYDROCHLOROTHIAZIDE 25 MG (HCTZ) TAB PO SCH (08:25)
[2016-09-15] MEDS: ASPIRIN E.C. 81 MG (ECOTRIN) TAB PO SCH (08:25)
[2016-09-15] MEDS: meTOprolol TARTRATE 25 MG (LOPRESSOR) TABLET PO SCH ×2 (08:25→20:43)
--- NOTE | 2016-09-15 09:52 | Individualized Plan of Care ---
Individualized Plan of Care Rehab Nursing IPOC Order Admission Date Sep 12, 2016 at 10:00 Current Orders Orders-DEANNA KENDALL MD Patient Visit (09/13/16 ) Speech Sound Colin Comp (09/13/16 ) Patient Visit (09/13/16 ) Functional Activities, Ea 15 (09/13/16 ) Gait Training, Ea 15 Min (09/13/16 ) Exercise Therap, Ea 15 Min (09/13/16 ) Patient Visit (09/14/16 ) Exercise Therap, Ea 15 Min (09/14/16 ) Gait Training, Ea 15 Min (09/14/16 ) PT IPOC Problem List: Activity Tolerance, Functional Strength, Safety, Balance, Gait, Transfer, Bed Mobility Treatment Plan: Continue Plan of Care Bed Mobility, Education, Functional Activity [place], Functional Strength, Group Therapy, Gait, Safety, Therapeutic Exercise, Transfers Treatment Duration: Oct 03, 2016 Visits Per Week: 10-15 Minutes/Day (M-F): 60-90 Minutes/Day (Sat/Hankins): prn OT IPOC Problems: Decreased UE Strength, Dependent Transfers, Impaired Coordination, Impaired Funct Balance, Impaired Self-Care Skills OT Problems Pt would benefit from skilled OT to increase her independence in basis self care to allow her to return home to live safely with after CVA with L sided weakness and incoordination, decr functional mobility with all impact her self care abilities Plan of Care: ADL Retraining, Functional Mobility, Group Exercise/Act as Ind ( education, exercise, activity tolerance, coordination, functional activities, balance), UE Funct Exercise/Act, UE Neuromus Re-Ed/Coord Treatment Duration: Oct 04, 2016 Visits Per Week: 10-11 Minutes/Day (M-F): 75-90 Minutes/Day (Sat/Hankins): 75-90 ST IPOC Speech Therapy Treatment Plan: Continue Plan of Care Treatment Duration: Sep 27, 2016 Visits Per Week: Three Minutes/Day (M-F): 30-45 Physician IPOC Medical Issues being managed closely and that require the 24 hour availability of a physician:HTN Sinus tach Medical Issues: DVT Prophylaxis, Falls Precautions, Other (List) (as per above) Brief Synthesis of Preadmission Screen, Post-Admission Evaluation, and Therapy Evaluations:71 yo female who had been Independent who sustained a rt thalamic lacunar infarct with resulting left HP who had TPA administered with good effect wwho is referred to [facility] for stroke rehab Being followd by cardiolgy and Hospitalist for HTN and post stroke taachycardia.Has a supportive spouse Medical Prognosis: good Anticipated Length of Stay: 2 weeks Rehab Goals Modified Independent for adls and mobility skills Anticipated discharge destinat: Home with spouse and [facility] DEANNA KENDALL MD Sep 15, 2016 09:52
--- NOTE | 2016-09-15 13:50 | Cardiology Progress Note ---
Subjective Subjective/Events-last exam Patient is sitting in a chair, no new complaint, denied any chest pain or shortness of breath. Was concerned about having a HETAL done, discussed in length her condition, all questions were answered Review of Systems General: No Chills, No Night Sweats, No Fatigue, No Malaise, No Appetite, No Other HEENT: No Head Aches, No Visual Changes, No Eye Pain, No Ear Pain, No Dysphasia , No Sinus Congestion, No Post Nasal Drip, No Sore Throat, No Other Pulmonary: No Dyspnea, No Cough, No Pleuritic Chest Pain, No Other Cardiovascular: No: Chest Pain, Edema, Lt Headedness, Orthopnea, Other, Palpitations, Paroxysmal Noc. Dyspnea Objective-Cardiology Exam Last Set of Vital Signs Vital Signs 09/15/16 04:03 Temp 96.0 Pulse 76 Resp 16 B/P 178/88 Pulse Ox 99 O2 Delivery Room Air Capillary Refill : I&O Intake and Output 09/15/16 00:00 Intake Total 1080 ml Balance 1080 ml Intake Oral 1080 ml # Voids 9 # Bowel Movements 1 General: Alert, Oriented X3, Cooperative, No Acute Distress HEENT: Atraumatic, PERRLA, EOMI, Mucous Memb Moist/[place] Neck: Supple, No JVD Lungs: Clear to Auscultation Heart: Regular Rate, Normal S1, Normal S2 Abdomen: Normal Bowel Sounds, Soft, No Tenderness Extremities: No Clubbing, No Cyanosis, No Edema Skin: No Rashes, No Breakdown Neuro: Normal Speech, Other (left side weakness in the lower except he more than the upper extremity, mild facial droop) A/P-Cardiology Admission Diagnosis Acute CVA Hypertension Hyperlipidemia Sinus tachycardia Assessment/Plan Acute CVA with left sided weakness- CT Head with 3cm calcified meningioma, otherwise negative, given tPA in ER. MRI brain revealed right thalmus 1.5cm acute infarct. Continues to have left sided facial drooping with left sided weakness. On Plavix and ASA. Carotid US revealed nonobstructive disease bilaterally. echocardiogram showed normal left ventricular size and systolic function, ejection fraction 60 percent, left atrium is in the upper normal limit in size. Pulmonary artery pressure is normal. I will proceed with HETAL evaluation on Friday, all questions answered. Discussed the procedure, benefits versus risks. Sinus tachycardia with PVC's, better, continue to monitor heart rate and blood pressure Hypertension, started on beta blockers, continue to monitor blood pressure Hyperlipidemia, on Lipitor. Monitor lipids Hx meningioma- CT head revealed 3cm calcified meningioma. Clinical Quality Measures DVT/VTE Risk/Contraindication: Risk Factor Score Per Nursin RFS Level Per Nursing on Admit: 4+=Very High MECHELLE BILLY MD Sep 15, 2016 13:50
[2016-09-15 18:30] VITALS: BP 149/79
[2016-09-15] MEDS: ATORVASTATIN 20 MG (LIPITOR) TABLET PO SCH (20:43)
[2016-09-16] VITALS (18 sets, daily range): BP systolic 116–197; BP diastolic 65–104
[2016-09-16 05:20] LABS: MEAN PLATELET VOLUME 10.1 FL (7.4-10.4); RED BLOOD COUNT 4.1 10^6/uL (4.35-5.85); RED CELL DISTRIBUTION WIDTH 12.2 % (10.0-14.5); WHITE BLOOD COUNT 9.3 10^3/uL (4.3-11.0)
[2016-09-16 05:41] LABS: ALANINE AMINOTRANSFERASE 15 U/L (0-55); ALBUMIN 3.4 G/DL (3.2-4.5); ANION GAP 8 MMOL/L (5-14); ASPARTATE AMINO TRANSFERASE 12 U/L (5-34); BILIRUBIN,TOTAL 0.6 MG/DL (0.1-1.0); BLOOD UREA NITROGEN 17 MG/DL (7-18); BUN/CREATININE RATIO 24; CALCIUM 9.8 MG/DL (8.5-10.1); CARBON DIOXIDE 24 MMOL/L (21-32); CHLORIDE 106 MMOL/L (98-107); CREATININE SERUM 0.72 MG/DL (0.60-1.30); GFR ESTIMATED > 60; GLUCOSE 121 MG/DL (70-105); POTASSIUM 3.7 MMOL/L (3.6-5.0); SODIUM 138 MMOL/L (135-145); TOTAL PROTEIN 5.7 G/DL (6.4-8.2)
[2016-09-16] MEDS ORDERED: LIDOCAINE 2% VISCOUS 15 ML UDC ONE (07:31)
[2016-09-16] MEDS ORDERED: NS IV 1000 ML 1,000 ML ONE (07:31)
[2016-09-16] MEDS ORDERED: fentaNYL INJECTION 100 MCG/2 ML AMP ONE (08:00)
[2016-09-16] MEDS ORDERED: MIDAZOLAM 5 MG/5 ML (VERSED) VIAL ONE (08:00)
[2016-09-16 08:05] LABS: PROTHROMBIN TIME PATIENT 13.3 SEC (12.2-14.7)
[2016-09-16] MEDS ORDERED: NS IV 1000 ML 1,000 ML IV ONE (08:30)
--- NOTE | 2016-09-16 08:55 | Cardiac Procedure Note-CS/ASA ---
Pre-Procedure Note Pre-Op Procedure Note H&P Reviewed The H&P was reviewed, patient examined and no changes noted. Date H&P Reviewed: Sep 16, 2016 Time H&P Reviewed: 08:54 Conscious Sedation Pre-Proced Time Reviewed: 08:54 ASA Class: 3 Airway Mallampati Classification: ([place] appropriate class) I. II. III, IV Lungs Heart ASA score ASA 1: a normal healthy patient ASA 2: a patient with a mild systemic disease (mid diabetes, controlled hypertension, obesity x ASA 3: a patient with a severe systemic disease that limits activity (angina , COPD, prior Myocardial infarction) ASA 4: a patient with an incapacitating disease that is a constant threat to life (CHF, renal failure) ASA 5: a moribund patient not expected to survive 24 hrs. (ruptured aneurysm) ASA 6: a declared brain patient whose organs are being harvested. For emergent operations, add the letter E after the classification Grade 3 Sedation Plan: Analgesia, Amnesia, Plan communicated to team members, Discussed options with patient/fam, Discussed risks with patient/fam Note The patient is an appropriate candidate to undergo the planned procedure, sedation, and anesthesia. The patient immediately re-assessed prior to indication. MECHELLE BILLY MD Sep 16, 2016 08:55
--- NOTE | 2016-09-16 08:57 | Cardiology Progress Note ---
Subjective Subjective/Events-last exam Patient is in bed, no new complaint, no chest pain or shortness of breath Review of Systems General: No Chills, No Night Sweats, No Fatigue, No Malaise, No Appetite, No Other HEENT: No Head Aches, No Visual Changes, No Eye Pain, No Ear Pain, No Dysphasia , No Sinus Congestion, No Post Nasal Drip, No Sore Throat, No Other Pulmonary: No Dyspnea, No Cough, No Pleuritic Chest Pain, No Other Cardiovascular: No: Chest Pain, Edema, Lt Headedness, Orthopnea, Other, Palpitations, Paroxysmal Noc. Dyspnea Objective-Cardiology Exam Last Set of Vital Signs Vital Signs 09/16/16 09/16/16 09/16/16 06:00 08:32 08:37 Temp 96.0 Pulse 88 Resp 16 B/P 152/83 Pulse Ox 97 O2 Delivery Room Air O2 Flow Rate 2.00 Capillary Refill : I&O Intake and Output 09/16/16 00:00 Intake Total 580 ml Balance 580 ml Intake Oral 580 ml # Voids 8 General: Alert, Oriented X3, Cooperative, No Acute Distress HEENT: Atraumatic, PERRLA, EOMI, Mucous Memb Moist/[place] Neck: Supple, No JVD Lungs: Clear to Auscultation Heart: Regular Rate, Normal S1, Normal S2 Abdomen: Normal Bowel Sounds, Soft, No Tenderness Extremities: No Clubbing, No Cyanosis, No Edema Skin: No Rashes, No Breakdown Neuro: Normal Speech, Other (left side weakness in the lower except he more than the upper extremity, mild facial droop) Results Lab Laboratory Tests 09/16/16 05:10 A/P-Cardiology Admission Diagnosis Acute CVA Hypertension Hyperlipidemia Sinus tachycardia Assessment/Plan Acute CVA with left sided weakness- CT Head with 3cm calcified meningioma, otherwise negative, given tPA in ER. MRI brain revealed right thalmus 1.5cm acute infarct. Continues to have left sided facial drooping with left sided weakness. On Plavix and ASA. Carotid US revealed nonobstructive disease bilaterally. echocardiogram showed normal left ventricular size and systolic function, ejection fraction 60 percent, left atrium is in the upper normal limit in size. Pulmonary artery pressure is normal. HETAL didn't show any abnormality, continue on current treatment, no arrhythmia detected, possible Reveal Sinus tachycardia with PVC's, better, continue to monitor heart rate and blood pressure Hypertension, add lisinopril and monitor BP Hyperlipidemia, on Lipitor. Monitor lipids Hx meningioma- CT head revealed 3cm calcified meningioma. Clinical Quality Measures DVT/VTE Risk/Contraindication: Risk Factor Score Per Nursin RFS Level Per Nursing on Admit: 4+=Very High MECHELLE BILLY MD Sep 16, 2016 08:57
[2016-09-16] MEDS: DOCUSATE SODIUM 100 MG (COLACE) CAP PO SCH ×2 (09:00→20:14)
[2016-09-16] MEDS: NAPROXEN 250 MG (NAPROSYN) TABLET PO SCH (10:10)
[2016-09-16] MEDS: CLOPIDOGREL 75 MG (PLAVIX) TABLET PO SCH (10:10)
[2016-09-16] MEDS: lisINopril 10 MG (PRINIVIL) TAB PO SCH (10:11)
[2016-09-16] MEDS: meTOprolol TARTRATE 25 MG (LOPRESSOR) TABLET PO SCH ×2 (10:11→20:14)
[2016-09-16] MEDS: ASPIRIN E.C. 81 MG (ECOTRIN) TAB PO SCH (10:11)
[2016-09-16] MEDS: HYDROCHLOROTHIAZIDE 25 MG (HCTZ) TAB PO SCH (10:55)
--- NOTE | 2016-09-16 10:57 | Physical Therapy Daily Note ---
PT Daily Note-Current Subjective Patient in chair pre tx, agrees to PT, no complaints. No pain reported. Appearance Patient in chair post tx for meal, has nurse call, phone, tray, all needs met. Mental Status Patient Orientation: Normal For Age Transfers Functional [place] Measure 0=Not Assessed/NA 4=Minimal Assistance 1=Total Assistance 5=Supervision or Setup 2=Maximal Assistance 6=Modified [place] 3=Moderate Assistance 7=Complete IndependenceIRFPAI Quality Coding Scale 6 Independent with activity with or without an assistive device 5 Patient requires set up or clean up by helper. Patient completes activity by themselves 4 Supervision or touching assist (CGA). [place] provide cues , steadying assist 3 The helper provides less than half the effort to complete the activity 2 The helper provides more than half the effort to complete the activity 1 Dependent. The helper does all the effort to complete an activity 7 Patient refused to complete or attempt activity 9 The patient did not perform the activity before the current illness or injury 88 Not attempted due to Medical conditions or safety concerns Transfers (B, C, W/C) (FIM): 4 Sit to/from Stand: 4 (CGA) cues for safety and hand placement Gait Training Gait (FIM): 4 Distance: 200', 150' Gait Level of Assist: 4 Gait Persons Needed: 1 Gait Assistive Device: FWW Patient has weak left leg and has decrease stance time on it causing a limp. Uncoordinated movement of left leg. Exercises Standing: Hip Abduction, Hamstring curls, Heel/toe raises, Marching, Mini squats Standing Reps: 20 NuStep Minutes: 15 NuStep Workload: 5 Treatments transfers, ambulation, functional strengthening Assessment Current Status: Fair Progress patient fatigues quickly and needs frequent rest breaks PT Short Term Goals Short Term Goals Time Frame: Sep 19, 2016 Transfers (B,C,W/C) (FIM): 4 (met 09/14/16) Gait (FIM): 4 (met 08/2116) Stairs (FIM): 2 # of Steps: 4 Stairs Level of Assist: 4 PT Call Center Receptionist Goals Half-Way Goals PT Call Center Receptionist Goals Time Frame: Oct 03, 2016 Transfers (B,C,W/C) (FIM): 6 Sit to Lying (QC): 6 Lying-Sitting on Side/Bed(QC): 6 Sit to Stand (QC): 6 Rollin Roll Left to Right (QC): 6 Chair/Lti-cw-Atyrn Xfer(QC): 6 Car Transfer (QC): 5 Does the Patient Walk: Yes Gait (FIM): 6 Gait distance (FIM): 3=150 ft Walk 10 feet (QC): 6 Walk 10ft-Uneven Surface(QC): 6 Walk 50ft with 2 Turns (QC): 6 Walk 150 ft (QC): 6 Gait Level of Assist: 6 Gait Assistive Device: FWW Does the Pt use WC or Scooter?: No Stairs (FIM): 5 # of Steps: 8 1 Step (curb) (QC): 6 4 Steps (QC): 6 12 Steps (QC): 88 Stairs Level Of Assist: 6 Picking up an Object (QC): 5 PT Plan Problem List Problem List: Activity Tolerance, Functional Strength, Safety, Balance, Gait, Transfer, Bed Mobility Treatment/Plan Treatment Plan: Continue Plan of Care Treatment Plan: Bed Mobility, Education, Functional Activity Laurence, Functional Strength, Group Therapy, Gait, Safety, Therapeutic Exercise, Transfers Treatment Duration: Oct 03, 2016 Visits Per Week: 10-15 Minutes/Day (M-F): 60-90 Minutes/Day (Sat/Hankins): prn Safety Risks/Education Patient Education: Gait Training, Transfer Techniques, Safety Issues Teaching Recipient: Patient Teaching Methods: Demonstration, Discussion Response to Teaching: Reinforcement Needed Time/GCodes Time In: 1000 Time Out: 1100 Total Billed Treatment Time: 60 Total Billed Treatment 1 visit GT 30 min EX 30 min MIREYA CORREIA PT Sep 16, 2016 10:57
--- NOTE | 2016-09-16 11:11 | TEE REPORT ---
DATE OF PROCEDURE: 09/16/2016 REFERRING PHYSICIAN: Dr. Emerson. BRIEF HISTORY: Mrs. Dunn is a 71-year-old lady who suffered from cryptogenic stroke. Part of the work-up was evaluation for any cardiac source of embolization. She was scheduled for HETAL evaluation. PROCEDURE NOTE: After explaining the procedure to the patient, all pros and cons were explained. All questions were answered. The patient signed a consent, then she was placed on the left lateral decubitus position. Oropharynx was anesthetized using Cetacaine spray. Omniplane probe was introduced through the mouth to the esophagus and then into the stomach, multiple views were obtained. At the end of the procedure Omniplane probe was removed. No complication noted. FINDINGS: 1. The left ventricle is normal in size with normal contractility. Systolic function appeared to be normal. Estimated ejection fraction 60%. 2. The left atrium is normal in size. No clot or thrombus were seen within the left atrium. 3. The right atrium and right ventricle are normal in size. No clot or thrombus were seen within the right side. 4. Mitral valve is normal in morphology with mild mitral regurgitation noted by color Doppler flow. No mitral valve prolapse. No mitral valve stenosis. 5. Aortic valve is trileaflet with normal opening and closing pattern. No significant aortic stenosis or regurgitation was seen. 6. Tricuspid valve is normal in morphology. 7. Pulmonic valve is normal in morphology. 8. No pericardial effusion. 9. Evaluation of the intra-atrial septum was done using color Doppler flow and agitated saline as a contrast media. No shunt was noted. 10. A portion of the ascending aorta, aortic arch descending aorta and aortic root were evaluated and some systolic plaques were noted. No dissection or aneurysm. No large plaques were noted. CONCLUSION: 1. No cardiac source of embolization was noted. 2. Normal left ventricular size and systolic function. Estimated ejection fraction 60%. 3. Mild mitral and tricuspid regurgitation Job ID: [id number] Dictated Date: 09/16/2016 10:49:00 [employer] Date: 09/16/2016 11:06:27/jose
--- NOTE | 2016-09-16 11:16 | Occupational Ther Daily Note ---
OT Current Status-Daily Note Subjective Pt lying in bed. Pt stated she has been up since 2:00 am and is very sleepy. Pt had tests done prior to therapy. No pain reported. Agreeable to OT. Appearance Alert, cooperative Mental Status/Objective Functional [place] Measure 0=Not Assessed/NA 4=Minimal Assistance 1=Total Assistance 5=Supervision or Setup 2=Maximal Assistance 6=Modified [place] 3=Moderate Assistance 7=Complete [place] ADL-Treatment Pt stated she had brushed teeth and washed her face prior to therapy. Pt scooted to EOB to don blouse, socks, pants set up, without assistance. Pt used FWW for balance to pull up pants, SBA. Pt transferred from EOB to chair, FWW, SBA. Pt retrieved brush from her purse to brush hair. Pt was SBA today due to feeling fatigue after having tests done. Functional [place] Measure 0=Not Assessed/NA 4=Minimal Assistance 1=Total Assistance 5=Supervision or Setup 2=Maximal Assistance 6=Modified [place] 3=Moderate Assistance 7=Complete IndependenceIRFPAI Quality Coding Scale 6 Independent with activity with or without an assistive device 5 Patient requires set up or clean up by helper. Patient completes activity by themselves 4 Supervision or touching assist (CGA). [place] provide cues , steadying assist 3 The helper provides less than half the effort to complete the activity 2 The helper provides more than half the effort to complete the activity 1 Dependent. The helper does all the effort to complete an activity 7 Patient refused to complete or attempt activity 9 The patient did not perform the activity before the current illness or injury 88 Not attempted due to Medical conditions or safety concerns Transfers (B, C, W/C) (FIM): 5 Other Treatment Pt used yellow (light) resistance theraband for shoulder, biceps, triceps strengthening 1 set 10 reps, recovery breaks between sets. Pt worked on fine motor coordination and pinch strength with red (medium resistance) theraputty and threading beads. Pt left sitting in chair. Call light in hand. All needs met in room. Education Teaching Recipient: Patient Teaching Methods: Demonstration, Discussion Response to Teaching: Verbalize Understanding, Return Demonstration OT Short Term Goals Short Term Goals Time Frame: Sep 19, 2016 Grooming(FIM): 5 Upper Body Dressing(FIM): 5 Lower Body Dressing(FIM): 5 Toileting(FIM): 5 Transfers (B,C,W/C) (FIM): 4 (met 09/14/16) Toilet/Commode Transfer(FIM): 5 Additional Short Term Goals: 2-Verbalize Understanding, 3-ImproveStrength/Laurence 1=Demonstrate adherence to instructed precautions during ADL tasks. 2=Patient will verbalize/demonstrate understanding of assistive devices/ modifications for ADL. 3=Patient will improve strength/tolerance for activity to enable patient to perform ADL's. OT Plug Overwrap Machine Tender Goals Plug Overwrap Machine Tender Goals Time Frame: Oct 04, 2016 Eating (FIM): 6 Eating (QC): 6 Oral Hygiene (QC): 6 Grooming(FIM): 6 Bathing(FIM): 6 Shower/Bathe Self (QC): 6 Upper Body Dressing(FIM): 6 Upper Body Dressing (QC): 6 Lower Body Dressing(FIM): 6 Lower Body Dressing (QC): 6 On/Off Footwear (QC): 6 Toileting(FIM): 6 Toileting Hygiene (QC): 6 Toilet/Commode Transfer(FIM): 6 Toilet/Commode Transfer (QC): 6 Shower Transfer(FIM): 6 Comprehension(FIM): 6 Expression (FIM): 7 Social Interaction(FIM): 6 Problem Solving(FIM): 6 Memory(FIM): 6 Increase bilat UE strength to 5/5 Additional Goals: 2-Verbalize Understanding, 3-ImproveStrength/Laurence 1=Demonstrate adherence to instructed precautions during ADL tasks. 2=Patient will verbalize/demonstrate understanding of assistive devices/ modifications for ADL. 3=Patient will improve strength/tolerance for activity to enable patient to perform ADL's. OT Education/Plan Problem List/Assessment Pt would benefit from skilled OT to increase her independence in basis self care to allow her to return home to live safely with after CVA with L sided weakness and incoordination, decr functional mobility with all impact her self care abilities Discharge Recommendations Plan/Recommendations: Continue POC Treatment Plan/Plan of Care Patient would benefit from OT for education, treatment and training to promote independence in ADL's, mobility, safety and/or upper extremity function for ADL' s. Plan of Care: ADL Retraining, Functional Mobility, Group Exercise/Act as Ind ( education, exercise, activity tolerance, coordination, functional activities, balance), UE Funct Exercise/Act, UE Neuromus Re-Ed/Coord Treatment Duration: Oct 04, 2016 Visits Per Week: 10-11 Minutes/Day (M-F): 75-90 Minutes/Day (Sat/Hankins): 75-90 Rehab Potential: Good Time/GCodes Start Time: 09:00 Stop Time: 10:00 Total Time Billed (hr/min): 60 Billed Treatment Time visit, ADL 20 min, EX 40 min LEIA NESBITT Sep 16, 2016 11:16
--- NOTE | 2016-09-16 14:44 | Therapy Group Daily Note ---
Therapy Daily Group Note Patient Education Topic Other List Below (Transfer techniques, transfer equipment, utilizing theraband) Exercises LE Seated Exercise, UE Exercise Other/Notes Pt. attended group PT OT session. Pt.ambulated to/from with assistance. Pt. was social introducing herself and sharing in conversation around the topic of managing fears in life. Education and demonstration on transfer techniques from rolling to supine to sit to bed to chair. Pt. participated in theraband exercises and learned ways to utilize this independently. Pt. to room after Rx with bishop at hand. Pt. profited from group with socialization and sit to stand technique education. Start Time: 13:00 Stop Time: 14:20 Total Billed Treatment Time: 80 Total Billed Treatment 1,GRP BHAVYA LOPEZ DUST BOX TENDER Sep 16, 2016 14:44
--- NOTE | 2016-09-16 15:05 | Therapy Group Daily Note ---
Therapy Daily Group Note Patient Education Topic Exercises, Other List Below (education on transfers and equipment) Exercises LE Seated Exercise, UE Exercise Other/Notes Pt ambulated self to therapy, without assistance. Pt participated socially by introducing self, currently living and to describe her biggest fear. Pt held a conversation by describing how she would manage her fears. UE/LE seated exercises were completed, education on benefits of LE exercises to decrease blood clots and increase circulation. UE/LE light resistance theraband completed while seated to promote safe transfers. Transfer techniques and equipment used to assist with transfers were discussed and examples were given on how to properly transfer from surface to surface. Pt ambulated back to room. Call light in hand. All needs met. Start Time: 13:00 Stop Time: 14:20 Total Billed Treatment Time: 80 Total Billed Treatment 1-GRP LEIA NESBITT Sep 16, 2016 15:05
[2016-09-16] MEDS: ATORVASTATIN 20 MG (LIPITOR) TABLET PO SCH (20:13)
--- NOTE | 2016-09-16 20:27 | PM & R (SOAP) Progress Note ---
Subjective Subjective/Events-last exam Patient was seen in her room this Evening Progressing well with therapies Patient min assist for transfers and gait Appreciate DR Hatch note and orders re HTN controll doing better with adjustment in meds Objective Exam Last Set of Vital Signs Vital Signs Date Time Temp Pulse Resp B/P Pulse Ox O2 Delivery O2 Flow Rate FiO2 09/16/16 18:30 98.2 83 16 130/77 99 Room Air 09/16/16 08:32 2.00 Capillary Refill : I&O Intake and Output 09/16/16 00:00 Intake Total 580 ml Balance 580 ml Intake Oral 580 ml # Voids 8 General: Alert, Oriented X3, Cooperative, No Acute Distress HEENT: Atraumatic, PERRLA, EOMI, Mucous Memb Moist/[place] Neck: Supple, No JVD Lungs: Clear to Auscultation Heart: Regular Rate, Normal S1, Normal S2 Abdomen: Normal Bowel Sounds, Soft, No Tenderness Extremities: No Clubbing, No Cyanosis, No Edema Skin: No Rashes, No Breakdown Neuro: Normal Speech, Other (left side weakness in the lower except he more than the upper extremity, mild facial droop) Results Lab Laboratory Tests 09/16/16 05:10: Activated Partial Thromboplast Time 26, Alanine Aminotransferase (ALT/SGPT) 15, Albumin 3.4, Alkaline Phosphatase 67, Anion Gap 8, Aspartate Amino Transf (AST/ SGOT) 12, BUN/Creatinine Ratio 24, Blood Urea Nitrogen 17, Calcium Level 9.8, Carbon Dioxide Level 24, Chloride Level 106, Creatinine 0.72, Estimat Glomerular Filtration Rate > 60, Glucose Level 121H, Hematocrit 38, Hemoglobin 12.7, INR Comment 1.0, Mean Corpuscular Hemoglobin 31, Mean Corpuscular Hemoglobin Concent 33, Mean Corpuscular Volume 93, Mean Platelet Volume 10.1, Platelet Count 302, Potassium Level 3.7, Prothrombin Time 13.3, Red Blood Count 4.10L, Red Cell Distribution Width 12.2, Sodium Level 138, Total Bilirubin 0.6, Total Protein 5.7L, White Blood Count 9.3 Assessment/Plan Assessment Rt lacunar thalamic infarct with mild left HP s/p TPA HTN now better controlled Plan Continue PT/OT ST has seen F/U with Dr salvador and Kimberley prn Team Conference 09/18/16 DEANNA KENDALL MD Sep 16, 2016 20:27
[2016-09-17 06:00] VITALS: BP 143/84
--- NOTE | 2016-09-17 08:14 | Cardiology Progress Note ---
Subjective Subjective/Events-last exam Patient walking with walker. No new complaints. Denies any recent palpitations. Denies CP. Review of Systems General: No Night Sweats, No Fatigue, No Malaise HEENT: No Visual Changes, No Dysphasia, No Sore Throat Pulmonary: No Dyspnea, No Cough Cardiovascular: : PalpitationsNo: Chest Pain, Edema, Paroxysmal Noc. Dyspnea Gastrointestinal: No: Abdominal Pain, Nausea, Vomiting Genitourinary: No Dysuria, No Frequency Musculoskeletal: No: back pain, neck pain Neurological: : WeaknessNo: Change in speech, Confusion, Numbness Objective-Cardiology Exam Last Set of Vital Signs Vital Signs 09/16/16 09/17/16 08:32 06:00 Temp 98.1 Pulse 78 Resp 16 B/P 143/84 Pulse Ox 100 O2 Delivery Room Air O2 Flow Rate 2.00 Capillary Refill : I&O Intake and Output 09/17/16 00:00 Intake Total 1160 ml Balance 1160 ml Intake Oral 1160 ml # Voids 8 # Bowel Movements 2 General: Alert, Oriented X3, Cooperative, No Acute Distress HEENT: Atraumatic, PERRLA, EOMI, Mucous Memb Moist/[place] Neck: Supple, No JVD Lungs: Clear to Auscultation Heart: Regular Rate, Normal S1, Normal S2 Abdomen: Normal Bowel Sounds, Soft, No Tenderness Extremities: No Clubbing, No Cyanosis, No Edema Skin: No Rashes, No Breakdown Neuro: Normal Speech, Other (left side weakness in the lower extremity more than the upper extremity, mild facial droop) A/P-Cardiology Admission Diagnosis Acute CVA Hypertension Hyperlipidemia Sinus tachycardia Assessment/Plan Acute CVA with left sided weakness- CT Head with 3cm calcified meningioma, otherwise negative, given tPA in ER. MRI brain revealed right thalmus 1.5cm acute infarct. Continues to have left sided facial drooping with left sided weakness. On Plavix and ASA. Carotid US revealed nonobstructive disease bilaterally. echocardiogram showed normal left ventricular size and systolic function, ejection fraction 60 percent, left atrium is in the upper normal limit in size. Pulmonary artery pressure is normal. HETAL didn't show any abnormality, continue on current treatment, no arrhythmia detected, planning for Reveal device implantation this afternoon for further monitoring. Sinus tachycardia with PVC's, better, continue to monitor heart rate and blood pressure Hypertension, add lisinopril and monitor BP Hyperlipidemia, on Lipitor. Monitor lipids Hx meningioma- CT head revealed 3cm calcified meningioma. Clinical Quality Measures DVT/VTE Risk/Contraindication: Risk Factor Score Per Nursin RFS Level Per Nursing on Admit: 4+=Very High CRISS IBARRA Sep 17, 2016 08:14
[2016-09-17] MEDS: NAPROXEN 250 MG (NAPROSYN) TABLET PO SCH (08:28)
[2016-09-17] MEDS: DOCUSATE SODIUM 100 MG (COLACE) CAP PO SCH ×2 (08:28→20:21)
[2016-09-17] MEDS: meTOprolol TARTRATE 25 MG (LOPRESSOR) TABLET PO SCH ×2 (08:29→20:22)
[2016-09-17] MEDS: CLOPIDOGREL 75 MG (PLAVIX) TABLET PO SCH (08:29)
[2016-09-17] MEDS: HYDROCHLOROTHIAZIDE 25 MG (HCTZ) TAB PO SCH (08:29)
[2016-09-17] MEDS: lisINopril 10 MG (PRINIVIL) TAB PO SCH (08:29)
[2016-09-17] MEDS: ASPIRIN E.C. 81 MG (ECOTRIN) TAB PO SCH (08:29)
[2016-09-17] MEDS ORDERED: CIPROFLOXACIN 500 MG (CIPRO) TABLET PO NR (09:00)
--- NOTE | 2016-09-17 09:20 | Occupational Ther Daily Note ---
OT Current Status-Daily Note Subjective Pt sitting in chair. No pain mentioned. Agreeable to OT. Appearance Alert, Cooperative Mental Status/Objective Functional [place] Measure 0=Not Assessed/NA 4=Minimal Assistance 1=Total Assistance 5=Supervision or Setup 2=Maximal Assistance 6=Modified [place] 3=Moderate Assistance 7=Complete [place] ADL-Treatment Pt ambulated to bathroom to toilet, FWW, SBA. Pt used grab bars to lower self to toilet. Pt managed clothing and hygiene. Functional [place] Measure 0=Not Assessed/NA 4=Minimal Assistance 1=Total Assistance 5=Supervision or Setup 2=Maximal Assistance 6=Modified [place] 3=Moderate Assistance 7=Complete IndependenceIRFPAI Quality Coding Scale 6 Independent with activity with or without an assistive device 5 Patient requires set up or clean up by helper. Patient completes activity by themselves 4 Supervision or touching assist (CGA). [place] provide cues , steadying assist 3 The helper provides less than half the effort to complete the activity 2 The helper provides more than half the effort to complete the activity 1 Dependent. The helper does all the effort to complete an activity 7 Patient refused to complete or attempt activity 9 The patient did not perform the activity before the current illness or injury 88 Not attempted due to Medical conditions or safety concerns OT Short Term Goals Short Term Goals Time Frame: Sep 19, 2016 Grooming(FIM): 5 Upper Body Dressing(FIM): 5 Lower Body Dressing(FIM): 5 Toileting(FIM): 5 Transfers (B,C,W/C) (FIM): 4 (met 09/14/16) Toilet/Commode Transfer(FIM): 5 Additional Short Term Goals: 2-Verbalize Understanding, 3-ImproveStrength/Laurence 1=Demonstrate adherence to instructed precautions during ADL tasks. 2=Patient will verbalize/demonstrate understanding of assistive devices/ modifications for ADL. 3=Patient will improve strength/tolerance for activity to enable patient to perform ADL's. OT Group Home Goals Group Home Goals Time Frame: Oct 04, 2016 Eating (FIM): 6 Eating (QC): 6 Oral Hygiene (QC): 6 Grooming(FIM): 6 Bathing(FIM): 6 Shower/Bathe Self (QC): 6 Upper Body Dressing(FIM): 6 Upper Body Dressing (QC): 6 Lower Body Dressing(FIM): 6 Lower Body Dressing (QC): 6 On/Off Footwear (QC): 6 Toileting(FIM): 6 Toileting Hygiene (QC): 6 Toilet/Commode Transfer(FIM): 6 Toilet/Commode Transfer (QC): 6 Shower Transfer(FIM): 6 Comprehension(FIM): 6 Expression (FIM): 7 Social Interaction(FIM): 6 Problem Solving(FIM): 6 Memory(FIM): 6 Increase bilat UE strength to 5/5 Additional Goals: 2-Verbalize Understanding, 3-ImproveStrength/Laurence 1=Demonstrate adherence to instructed precautions during ADL tasks. 2=Patient will verbalize/demonstrate understanding of assistive devices/ modifications for ADL. 3=Patient will improve strength/tolerance for activity to enable patient to perform ADL's. OT Education/Plan Problem List/Assessment Pt would benefit from skilled OT to increase her independence in basis self care to allow her to return home to live safely with after CVA with L sided weakness and incoordination, decr functional mobility with all impact her self care abilities Treatment Plan/Plan of Care Patient would benefit from OT for education, treatment and training to promote independence in ADL's, mobility, safety and/or upper extremity function for ADL' s. Plan of Care: ADL Retraining, Functional Mobility, Group Exercise/Act as Ind ( education, exercise, activity tolerance, coordination, functional activities, balance), UE Funct Exercise/Act, UE Neuromus Re-Ed/Coord Treatment Duration: Oct 04, 2016 Visits Per Week: 10-11 Minutes/Day (M-F): 75-90 Minutes/Day (Sat/Hankins): 75-90 Rehab Potential: LEIA Cortes Sep 17, 2016 09:20
--- NOTE | 2016-09-17 11:01 | Physical Therapy Daily Note ---
PT Daily Note-Current Subjective Pt sitting in chair upon arrival. Pt reports needing to use restroom before leaving for Therapy Gym. Pt agrees to PT but reports feeling a little stiff/ tight in LLE. Mental Status Patient Orientation: Person, Place, Time, Situation Transfers Functional [place] Measure 0=Not Assessed/NA 4=Minimal Assistance 1=Total Assistance 5=Supervision or Setup 2=Maximal Assistance 6=Modified [place] 3=Moderate Assistance 7=Complete IndependenceIRFPAI Quality Coding Scale 6 Independent with activity with or without an assistive device 5 Patient requires set up or clean up by helper. Patient completes activity by themselves 4 Supervision or touching assist (CGA). [place] provide cues , steadying assist 3 The helper provides less than half the effort to complete the activity 2 The helper provides more than half the effort to complete the activity 1 Dependent. The helper does all the effort to complete an activity 7 Patient refused to complete or attempt activity 9 The patient did not perform the activity before the current illness or injury 88 Not attempted due to Medical conditions or safety concerns Scootin Sit to/from Stand: 4 Sit to Stand (QC): 4 Weight Bearing Weight Bearing Restriction: Full Weight Bearing Location Restriction: LE Bilateral Gait Training Does the Patient Walk?: Yes Distance (FIM): 3=150 ft Distance: 250' Walk 10 feet (QC): 5 Walk 50 ft with 2 Turns(QC): 5 Walk 150 ft (QC): 5 Gait Level of Assist: 5 Gait Persons Needed: 1 Gait Assistive Device: FWW Pt walks with slow and steady gait despite weakness on LLE. Pt's L knee appears to buckle when weight shifting to L side. Exercises Standing: Hip Abduction, Hamstring curls, Heel/toe raises, Mini squats, Weight shifts Standing Reps: 20 NuStep Minutes: 15 NuStep Workload: 5 Treatments Pt transfers from sitting in chair to standing using FWW at CGA. Pt ambulates to restroom using FWW at SBA. After finishing, pt ambulates to Therapy Gym using FWW at SBA. Pt transfers to [facility] to use 15m at Workload 5. Pt then takes short rest before ambulating in hallway approx. 200' using FWW at SBA. Pt needs rest break after before returning to Therapy Gym to complete standing EX at //bars. Pt returns to room and transfers to chair to rest at end of tx with all needs met. Assessment Current Status: Good Progress Pt is getting stronger and more independent with transfers, EX tolerance and mobility. PT Short Term Goals Short Term Goals Time Frame: Sep 19, 2016 Transfers (B,C,W/C) (FIM): 4 (met 09/14/16) Gait (FIM): 4 (met 08/2116) Stairs (FIM): 2 # of Steps: 4 Stairs Level of Assist: 4 PT Benefits Analyst Goals Benefits Analyst Goals PT Fpc Goals Time Frame: Oct 03, 2016 Transfers (B,C,W/C) (FIM): 6 Sit to Lying (QC): 6 Lying-Sitting on Side/Bed(QC): 6 Sit to Stand (QC): 6 Rollin Roll Left to Right (QC): 6 Chair/[id number] Xfer(QC): 6 Car Transfer (QC): 5 Does the Patient Walk: Yes Gait (FIM): 6 Gait distance (FIM): 3=150 ft Walk 10 feet (QC): 6 Walk 10ft-Uneven Surface(QC): 6 Walk 50ft with 2 Turns (QC): 6 Walk 150 ft (QC): 6 Gait Level of Assist: 6 Gait Assistive Device: FWW Does the Pt use WC or Scooter?: No Stairs (FIM): 5 # of Steps: 8 1 Step (curb) (QC): 6 4 Steps (QC): 6 12 Steps (QC): 88 Stairs Level Of Assist: 6 Picking up an Object (QC): 5 PT Plan Problem List Problem List: Activity Tolerance, Functional Strength, Safety, Balance, Gait, Transfer Treatment/Plan Treatment Plan: Continue Plan of Care Treatment Plan: Bed Mobility, Education, Functional Activity Laurence, Functional Strength, Group Therapy, Gait, Safety, Therapeutic Exercise, Transfers Treatment Duration: Oct 03, 2016 Visits Per Week: 10-15 Minutes/Day (M-F): 60-90 Minutes/Day (Sat/Hankins): prn Safety Risks/Education Patient Education: Gait Training, Transfer Techniques, Correct Positioning, Safety Issues Teaching Recipient: Patient Teaching Methods: Discussion Response to Teaching: Verbalize Understanding Time/GCodes Time In: 915 Time Out: 1015 Total Billed Treatment Time: 60 Total Billed Treatment visit, GT (15m), FA (10m) & EX X2 (35m) MADISON DE LUNA DECK STEWARD Sep 17, 2016 11:01
--- NOTE | 2016-09-17 11:06 | Occupational Ther Daily Note ---
OT Current Status-Daily Note Subjective Pt sitting in chair. No pain mentioned. Agreeable to OT. Appearance Alert, cooperative Mental Status/Objective Functional [place] Measure 0=Not Assessed/NA 4=Minimal Assistance 1=Total Assistance 5=Supervision or Setup 2=Maximal Assistance 6=Modified [place] 3=Moderate Assistance 7=Complete [place] ADL-Treatment Pt washed face,hands, changed to clean clothes prior to therapy. Pt ambulated from chair to bathroom to use toilet, FWW, SBA. Pt used grab bars to lower self on toilet then managed clothing and hygiene, BSC over toilet ,SBA. Pt ambulated to front of sink to wash hands, FWW, SBA. Pt ambulated to gym, FWW, SBA. Functional [place] Measure 0=Not Assessed/NA 4=Minimal Assistance 1=Total Assistance 5=Supervision or Setup 2=Maximal Assistance 6=Modified [place] 3=Moderate Assistance 7=Complete IndependenceIRFPAI Quality Coding Scale 6 Independent with activity with or without an assistive device 5 Patient requires set up or clean up by helper. Patient completes activity by themselves 4 Supervision or touching assist (CGA). [place] provide cues , steadying assist 3 The helper provides less than half the effort to complete the activity 2 The helper provides more than half the effort to complete the activity 1 Dependent. The helper does all the effort to complete an activity 7 Patient refused to complete or attempt activity 9 The patient did not perform the activity before the current illness or injury 88 Not attempted due to Medical conditions or safety concerns Transfers (B, C, W/C) (FIM): 5 Toilet Transfer (QC): 5 Other Treatment Pt used arm bike for 15 min 10 goyal for strengthening with no recovery breaks. Resistance clothespins and Nuts [employer] Bolts activity used to increase fine motor skills to assist with transfers. Pt ambulated back to room, FWW, SBA, Pt left sitting in chair. Call light in reach. All needs met. Education OT Patient Education: Exercise program, Progress toward Goal/Update tx plan Teaching Recipient: Patient Teaching Methods: Demonstration, Discussion Response to Teaching: Verbalize Understanding, Return Demonstration OT Short Term Goals Short Term Goals Time Frame: Sep 19, 2016 Grooming(FIM): 5 Upper Body Dressing(FIM): 5 Lower Body Dressing(FIM): 5 Toileting(FIM): 5 Transfers (B,C,W/C) (FIM): 4 (met 09/14/16) Toilet/Commode Transfer(FIM): 5 Additional Short Term Goals: 2-Verbalize Understanding, 3-ImproveStrength/Laurence 1=Demonstrate adherence to instructed precautions during ADL tasks. 2=Patient will verbalize/demonstrate understanding of assistive devices/ modifications for ADL. 3=Patient will improve strength/tolerance for activity to enable patient to perform ADL's. OT Fpc Goals French Polisher Goals Time Frame: Oct 04, 2016 Eating (FIM): 6 Eating (QC): 6 Oral Hygiene (QC): 6 Grooming(FIM): 6 Bathing(FIM): 6 Shower/Bathe Self (QC): 6 Upper Body Dressing(FIM): 6 Upper Body Dressing (QC): 6 Lower Body Dressing(FIM): 6 Lower Body Dressing (QC): 6 On/Off Footwear (QC): 6 Toileting(FIM): 6 Toileting Hygiene (QC): 6 Toilet/Commode Transfer(FIM): 6 Toilet/Commode Transfer (QC): 6 Shower Transfer(FIM): 6 Comprehension(FIM): 6 Expression (FIM): 7 Social Interaction(FIM): 6 Problem Solving(FIM): 6 Memory(FIM): 6 Increase bilat UE strength to 5/5 Additional Goals: 2-Verbalize Understanding, 3-ImproveStrength/Laurence 1=Demonstrate adherence to instructed precautions during ADL tasks. 2=Patient will verbalize/demonstrate understanding of assistive devices/ modifications for ADL. 3=Patient will improve strength/tolerance for activity to enable patient to perform ADL's. OT Education/Plan Problem List/Assessment Pt would benefit from skilled OT to increase her independence in basis self care to allow her to return home to live safely with after CVA with L sided weakness and incoordination, decr functional mobility with all impact her self care abilities Discharge Recommendations Plan/Recommendations: Continue POC Treatment Plan/Plan of Care Patient would benefit from OT for education, treatment and training to promote independence in ADL's, mobility, safety and/or upper extremity function for ADL' s. Plan of Care: ADL Retraining, Functional Mobility, Group Exercise/Act as Ind ( education, exercise, activity tolerance, coordination, functional activities, balance), UE Funct Exercise/Act, UE Neuromus Re-Ed/Coord Treatment Duration: Oct 04, 2016 Visits Per Week: 10-11 Minutes/Day (M-F): 75-90 Minutes/Day (Sat/Hankins): 75-90 Rehab Potential: Good Time/GCodes Start Time: 08:00 Stop Time: 09:00 Total Time Billed (hr/min): 60 Billed Treatment Time visit, EX 40 min, ADL 20 min LEIA NESBITT Sep 17, 2016 11:06
[2016-09-17] MEDS ORDERED: LIDOCAINE 1% INJ 20 ML (XYLOCAINE) VIAL ONE (11:51)
--- NOTE | 2016-09-17 11:57 | PM & R (SOAP) Progress Note ---
Subjective Subjective/Events-last exam Patient was seen in her room this AM Progressing well with therapies Patient min assist for transfers Appreciate Crdiology notes and orders, Objective Exam Last Set of Vital Signs Vital Signs Date Time Temp Pulse Resp B/P Pulse Ox O2 Delivery O2 Flow Rate FiO2 09/17/16 06:00 98.1 78 16 143/84 100 Room Air 09/16/16 08:32 2.00 Capillary Refill : I&O Intake and Output 09/17/16 00:00 Intake Total 1160 ml Balance 1160 ml Intake Oral 1160 ml # Voids 8 # Bowel Movements 2 General: Alert, Oriented X3, Cooperative, No Acute Distress HEENT: Atraumatic, PERRLA, EOMI, Mucous Memb Moist/[place] Neck: Supple, No JVD Lungs: Clear to Auscultation Heart: Regular Rate, Normal S1, Normal S2 Abdomen: Normal Bowel Sounds, Soft, No Tenderness Extremities: No Clubbing, No Cyanosis, No Edema Skin: No Rashes, No Breakdown Neuro: Normal Speech, Other (left side weakness in the lower extremity more than the upper extremity, mild facial droop) Results Lab Laboratory Tests 09/16/16 05:10: Activated Partial Thromboplast Time 26, Alanine Aminotransferase (ALT/SGPT) 15, Albumin 3.4, Alkaline Phosphatase 67, Anion Gap 8, Aspartate Amino Transf (AST/ SGOT) 12, BUN/Creatinine Ratio 24, Blood Urea Nitrogen 17, Calcium Level 9.8, Carbon Dioxide Level 24, Chloride Level 106, Creatinine 0.72, Estimat Glomerular Filtration Rate > 60, Glucose Level 121H, Hematocrit 38, Hemoglobin 12.7, INR Comment 1.0, Mean Corpuscular Hemoglobin 31, Mean Corpuscular Hemoglobin Concent 33, Mean Corpuscular Volume 93, Mean Platelet Volume 10.1, Platelet Count 302, Potassium Level 3.7, Prothrombin Time 13.3, Red Blood Count 4.10L, Red Cell Distribution Width 12.2, Sodium Level 138, Total Bilirubin 0.6, Total Protein 5.7L, White Blood Count 9.3 Assessment/Plan Assessment 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
--- NOTE | 2016-09-17 12:24 | Cardiology Progress Note ---
Subjective Subjective/Events-last exam patient is laying down in bed, no new complaint. Denied any chest pain Objective-Cardiology Exam Last Set of Vital Signs Vital Signs 09/16/16 09/17/16 08:32 06:00 Temp 98.1 Pulse 78 Resp 16 B/P 143/84 Pulse Ox 100 O2 Delivery Room Air O2 Flow Rate 2.00 Capillary Refill : I&O Intake and Output 09/17/16 00:00 Intake Total 1160 ml Balance 1160 ml Intake Oral 1160 ml # Voids 8 # Bowel Movements 2 General: Alert, Oriented X3, Cooperative, No Acute Distress HEENT: Atraumatic, PERRLA, EOMI, Mucous Memb Moist/[place] Neck: Supple, No JVD Lungs: Clear to Auscultation Heart: Regular Rate, Normal S1, Normal S2 Abdomen: Normal Bowel Sounds, Soft, No Tenderness Extremities: No Clubbing, No Cyanosis, No Edema Skin: No Rashes, No Breakdown Neuro: Normal Speech, Other (left side weakness in the lower extremity more than the upper extremity, mild facial droop) A/P-Cardiology Admission Diagnosis Acute CVA Hypertension Hyperlipidemia Sinus tachycardia Assessment/Plan Acute CVA with left sided weakness- CT Head with 3cm calcified meningioma, otherwise negative, given tPA in ER. MRI brain revealed right thalmus 1.5cm acute infarct. Continues to have left sided facial drooping with left sided weakness. On Plavix and ASA. Carotid US revealed nonobstructive disease bilaterally. echocardiogram showed normal left ventricular size and systolic function, ejection fraction 60 percent, left atrium is in the upper normal limit in size. Pulmonary artery pressure is normal. HETAL didn't show any abnormality, continue on current treatment, no arrhythmia detected, status post Reveal implant. No complication Sinus tachycardia with PVC's, better, continue to monitor heart rate and blood pressure Hypertension, add lisinopril and monitor BP Hyperlipidemia, on Lipitor. Monitor lipids Hx meningioma- CT head revealed 3cm calcified meningioma. Clinical Quality Measures DVT/VTE Risk/Contraindication: Risk Factor Score Per Nursin RFS Level Per Nursing on Admit: 4+=Very High MECHELLE BILLY MD Sep 17, 2016 12:24
--- NOTE | 2016-09-17 15:10 | Occupational Ther Daily Note ---
OT Current Status-Daily Note Subjective Pt sitting in chair. Pt asked to do therapy in her room due to having a heart monitor placed on her chest. Agreeable to OT. Appearance Alert, cooperative Mental Status/Objective Functional [place] Measure 0=Not Assessed/NA 4=Minimal Assistance 1=Total Assistance 5=Supervision or Setup 2=Maximal Assistance 6=Modified [place] 3=Moderate Assistance 7=Complete [place] ADL-Treatment Functional [place] Measure 0=Not Assessed/NA 4=Minimal Assistance 1=Total Assistance 5=Supervision or Setup 2=Maximal Assistance 6=Modified [place] 3=Moderate Assistance 7=Complete IndependenceIRFPAI Quality Coding Scale 6 Independent with activity with or without an assistive device 5 Patient requires set up or clean up by helper. Patient completes activity by themselves 4 Supervision or touching assist (CGA). [place] provide cues , steadying assist 3 The helper provides less than half the effort to complete the activity 2 The helper provides more than half the effort to complete the activity 1 Dependent. The helper does all the effort to complete an activity 7 Patient refused to complete or attempt activity 9 The patient did not perform the activity before the current illness or injury 88 Not attempted due to Medical conditions or safety concerns Other Treatment Pt participated on two different table top activities to increase pincer grasp, coordination to assist with daily functional tasks. Education OT Patient Education: Progress toward Goal/Update tx plan, Purpose of tx/ functional activities Teaching Recipient: Patient Teaching Methods: Demonstration, Discussion Response to Teaching: Verbalize Understanding, Return Demonstration OT Short Term Goals Short Term Goals Time Frame: Sep 19, 2016 Grooming(FIM): 5 Upper Body Dressing(FIM): 5 Lower Body Dressing(FIM): 5 Toileting(FIM): 5 Transfers (B,C,W/C) (FIM): 4 (met 09/14/16) Toilet/Commode Transfer(FIM): 5 Additional Short Term Goals: 2-Verbalize Understanding, 3-ImproveStrength/Laurence 1=Demonstrate adherence to instructed precautions during ADL tasks. 2=Patient will verbalize/demonstrate understanding of assistive devices/ modifications for ADL. 3=Patient will improve strength/tolerance for activity to enable patient to perform ADL's. OT Estimator And Drafter Supervisor Goals Usp Goals Time Frame: Oct 04, 2016 Eating (FIM): 6 Eating (QC): 6 Oral Hygiene (QC): 6 Grooming(FIM): 6 Bathing(FIM): 6 Shower/Bathe Self (QC): 6 Upper Body Dressing(FIM): 6 Upper Body Dressing (QC): 6 Lower Body Dressing(FIM): 6 Lower Body Dressing (QC): 6 On/Off Footwear (QC): 6 Toileting(FIM): 6 Toileting Hygiene (QC): 6 Toilet/Commode Transfer(FIM): 6 Toilet/Commode Transfer (QC): 6 Shower Transfer(FIM): 6 Comprehension(FIM): 6 Expression (FIM): 7 Social Interaction(FIM): 6 Problem Solving(FIM): 6 Memory(FIM): 6 Increase bilat UE strength to 5/5 Additional Goals: 2-Verbalize Understanding, 3-ImproveStrength/Laurence 1=Demonstrate adherence to instructed precautions during ADL tasks. 2=Patient will verbalize/demonstrate understanding of assistive devices/ modifications for ADL. 3=Patient will improve strength/tolerance for activity to enable patient to perform ADL's. OT Education/Plan Problem List/Assessment Pt would benefit from skilled OT to increase her independence in basis self care to allow her to return home to live safely with after CVA with L sided weakness and incoordination, decr functional mobility with all impact her self care abilities Discharge Recommendations Plan/Recommendations: Continue POC Treatment Plan/Plan of Care Patient would benefit from OT for education, treatment and training to promote independence in ADL's, mobility, safety and/or upper extremity function for ADL' s. Plan of Care: ADL Retraining, Functional Mobility, Group Exercise/Act as Ind ( education, exercise, activity tolerance, coordination, functional activities, balance), UE Funct Exercise/Act, UE Neuromus Re-Ed/Coord Treatment Duration: Oct 04, 2016 Visits Per Week: 10-11 Minutes/Day (M-F): 75-90 Minutes/Day (Sat/Hankins): 75-90 Rehab Potential: Good Time/GCodes Start Time: 13:30 Stop Time: 14:00 Total Time Billed (hr/min): 30 Billed Treatment Time visit, EX 30 min LEIA NESBITT Sep 17, 2016 15:10
--- NOTE | 2016-09-17 15:42 | Physical Therapy Daily Note ---
PT Daily Note-Current Subjective Feels fatigued after just having a small procedure this afternoon but agrees to Rx. Pain Numeric Pain Scale: 0-No Pain Mental Status Patient Orientation: Normal For Age Transfers Functional [place] Measure 0=Not Assessed/NA 4=Minimal Assistance 1=Total Assistance 5=Supervision or Setup 2=Maximal Assistance 6=Modified [place] 3=Moderate Assistance 7=Complete IndependenceIRFPAI Quality Coding Scale 6 Independent with activity with or without an assistive device 5 Patient requires set up or clean up by helper. Patient completes activity by themselves 4 Supervision or touching assist (CGA). [place] provide cues , steadying assist 3 The helper provides less than half the effort to complete the activity 2 The helper provides more than half the effort to complete the activity 1 Dependent. The helper does all the effort to complete an activity 7 Patient refused to complete or attempt activity 9 The patient did not perform the activity before the current illness or injury 88 Not attempted due to Medical conditions or safety concerns all TRFs SBA toilet and chair Gait Training Gait Assistive Device: FWW [id number] FWW CGA and skilled verbal instruction for equal step length as well as heel toe etc Exercises Seated Therapy Exercises: Ankle pumps, Sit to stand, Long arc quads, Hip flexion, Hip abd/add Seated Reps: 15 Treatments toileted with SBA managing pants and cleaning indep, handwashing etc. Assessment Current Status: Good Progress PT Short Term Goals Short Term Goals Time Frame: Sep 19, 2016 Transfers (B,C,W/C) (FIM): 4 (met 09/14/16) Gait (FIM): 4 (met 08/2116) Stairs (FIM): 2 # of Steps: 4 Stairs Level of Assist: 4 PT Director Paid Media Goals Chcf Goals PT Chcf Goals Time Frame: Oct 03, 2016 Transfers (B,C,W/C) (FIM): 6 Sit to Lying (QC): 6 Lying-Sitting on Side/Bed(QC): 6 Sit to Stand (QC): 6 Rollin Roll Left to Right (QC): 6 Chair/Njk-ju-Njlvu Xfer(QC): 6 Car Transfer (QC): 5 Does the Patient Walk: Yes Gait (FIM): 6 Gait distance (FIM): 3=150 ft Walk 10 feet (QC): 6 Walk 10ft-Uneven Surface(QC): 6 Walk 50ft with 2 Turns (QC): 6 Walk 150 ft (QC): 6 Gait Level of Assist: 6 Gait Assistive Device: FWW Does the Pt use WC or Scooter?: No Stairs (FIM): 5 # of Steps: 8 1 Step (curb) (QC): 6 4 Steps (QC): 6 12 Steps (QC): 88 Stairs Level Of Assist: 6 Picking up an Object (QC): 5 PT Plan Treatment/Plan Treatment Plan: Continue Plan of Care Treatment Plan: Bed Mobility, Education, Functional Activity Laurence, Functional Strength, Group Therapy, Gait, Safety, Therapeutic Exercise, Transfers Treatment Duration: Oct 03, 2016 Visits Per Week: 10-15 Minutes/Day (M-F): 60-90 Minutes/Day (Sat/[place]): prn Safety Risks/Education Patient Education: Gait Training, Transfer Techniques Teaching Recipient: Patient Teaching Methods: Demonstration, Discussion Response to Teaching: Verbalize Understanding, Return Demonstration, Reinforcement Needed Time/GCodes Time In: 1510 Time Out: 1540 Total Billed Treatment Time: 30 Total Billed Treatment 1,EX8,FA22 G Codes Necessary: BHAVYA Bolanos METAL SORTER Sep 17, 2016 15:42
[2016-09-17 18:03] VITALS: BP 94/74
[2016-09-17] MEDS: ATORVASTATIN 20 MG (LIPITOR) TABLET PO SCH (20:22)
[2016-09-18 06:00] VITALS: BP 164/80
--- NOTE | 2016-09-18 08:49 | Cardiology Progress Note ---
Subjective Subjective/Events-last exam Patient is up in room. No new complaints. Denies any CP or dyspnea. Review of Systems General: No Night Sweats, No Fatigue, No Malaise HEENT: No Visual Changes, No Dysphasia, No Sore Throat Pulmonary: No Dyspnea, No Cough Cardiovascular: No: Chest Pain, Palpitations Gastrointestinal: No: Nausea, Vomiting Genitourinary: No Dysuria, No Frequency Musculoskeletal: No: back pain, neck pain Neurological: No: Numbness, Weakness Objective-Cardiology Exam Last Set of Vital Signs Vital Signs 09/16/16 09/18/16 08:32 06:00 Temp 97.7 Pulse 91 Resp 18 B/P 164/80 Pulse Ox 98 O2 Delivery Room Air O2 Flow Rate 2.00 Capillary Refill : I&O Intake and Output 09/18/16 00:00 Intake Total 850 ml Balance 850 ml Intake Oral 850 ml # Voids 7 # Bowel Movements 2 General: Alert, Oriented X3, Cooperative, No Acute Distress HEENT: Atraumatic, PERRLA, EOMI, Mucous Memb Moist/[place] Neck: Supple, No JVD Lungs: Clear to Auscultation Heart: Regular Rate, Normal S1, Normal S2 Abdomen: Normal Bowel Sounds, Soft, No Tenderness Extremities: No Clubbing, No Cyanosis, No Edema Skin: No Rashes, No Breakdown Neuro: Normal Speech, Other (left side weakness in the lower extremity more than the upper extremity, mild facial droop) A/P-Cardiology Admission Diagnosis Acute CVA Hypertension Hyperlipidemia Sinus tachycardia Assessment/Plan Acute CVA with left sided weakness- CT Head with 3cm calcified meningioma, otherwise negative, given tPA in ER. MRI brain revealed right thalmus 1.5cm acute infarct. Continues to have left sided facial drooping with left sided weakness. On Plavix and ASA. Carotid US revealed nonobstructive disease bilaterally. echocardiogram showed normal left ventricular size and systolic function, ejection fraction 60 percent, left atrium is in the upper normal limit in size. Pulmonary artery pressure is normal. HETAL didn't show any abnormality, continue on current treatment, no arrhythmia detected, status post Reveal implant. No complication Sinus tachycardia with PVC's, better, continue to monitor heart rate and blood pressure Hypertension, controlled. Continue to monitor BP/HR Hyperlipidemia, on Lipitor. Monitor lipids Hx meningioma- CT head revealed 3cm calcified meningioma. Clinical Quality Measures DVT/VTE Risk/Contraindication: Risk Factor Score Per Nursin RFS Level Per Nursing on Admit: 4+=Very High CRISS IBARRA Sep 18, 2016 08:49
--- NOTE | 2016-09-18 09:14 | PM & R (SOAP) Progress Note ---
Subjective Subjective/Events-last exam Patient was seen in her room this AM Progressing well with therapies Patient SBA for transfers Objective Exam Last Set of Vital Signs Vital Signs Date Time Temp Pulse Resp B/P Pulse Ox O2 Delivery O2 Flow Rate FiO2 09/18/16 06:00 97.7 91 18 164/80 98 Room Air 09/16/16 08:32 2.00 Capillary Refill : I&O Intake and Output 09/18/16 00:00 Intake Total 850 ml Balance 850 ml Intake Oral 850 ml # Voids 7 # Bowel Movements 2 General: Alert, Oriented X3, Cooperative, No Acute Distress HEENT: Atraumatic, PERRLA, EOMI, Mucous Memb Moist/[place] Neck: Supple, No JVD Lungs: Clear to Auscultation Heart: Regular Rate, Normal S1, Normal S2 Abdomen: Normal Bowel Sounds, Soft, No Tenderness Extremities: No Clubbing, No Cyanosis, No Edema Skin: No Rashes, No Breakdown Neuro: Normal Speech, Other (left side weakness in the lower extremity more than the upper extremity, mild facial droop) Results Lab Laboratory Tests 09/16/16 05:10: Activated Partial Thromboplast Time 26, Alanine Aminotransferase (ALT/SGPT) 15, Albumin 3.4, Alkaline Phosphatase 67, Anion Gap 8, Aspartate Amino Transf (AST/ SGOT) 12, BUN/Creatinine Ratio 24, Blood Urea Nitrogen 17, Calcium Level 9.8, Carbon Dioxide Level 24, Chloride Level 106, Creatinine 0.72, Estimat Glomerular Filtration Rate > 60, Glucose Level 121H, Hematocrit 38, Hemoglobin 12.7, INR Comment 1.0, Mean Corpuscular Hemoglobin 31, Mean Corpuscular Hemoglobin Concent 33, Mean Corpuscular Volume 93, Mean Platelet Volume 10.1, Platelet Count 302, Potassium Level 3.7, Prothrombin Time 13.3, Red Blood Count 4.10L, Red Cell Distribution Width 12.2, Sodium Level 138, Total Bilirubin 0.6, Total Protein 5.7L, White Blood Count 9.3 Assessment/Plan Assessment Rt lacunar thalamic infarct with mild left HP s/p TPA HTN now better controlled Plan Continue PT/OT ST has seen F/U with Dr salvador and Kimberley carlosn Monitor Bllod pressure and adjust meds as appropriate Team Conference later today-See report for full functional update and POC and DEANNA OLGUIN MD Sep 18, 2016 09:14
[2016-09-18] MEDS: DOCUSATE SODIUM 100 MG (COLACE) CAP PO SCH ×2 (09:36→21:08)
[2016-09-18] MEDS: HYDROCHLOROTHIAZIDE 25 MG (HCTZ) TAB PO SCH (09:37)
[2016-09-18] MEDS: ASPIRIN E.C. 81 MG (ECOTRIN) TAB PO SCH (09:37)
[2016-09-18] MEDS: meTOprolol TARTRATE 25 MG (LOPRESSOR) TABLET PO SCH ×2 (09:37→21:08)
[2016-09-18] MEDS: lisINopril 10 MG (PRINIVIL) TAB PO SCH (09:38)
[2016-09-18] MEDS: NAPROXEN 250 MG (NAPROSYN) TABLET PO SCH (09:38)
[2016-09-18] MEDS: CLOPIDOGREL 75 MG (PLAVIX) TABLET PO SCH (09:38)
--- NOTE | 2016-09-18 10:02 | PROCEDURE REPORT ---
PROCEDURE PHYSICIAN: MECHELLE BILLY DATE OF PROCEDURE: 09/17/2016 REVEAL DEVICE IMPLANTATION REPORT: BRIEF HISTORY: Ms. Dunn is a 71-year-old lady who had an acute CVA. Work-up so far has been negative. Telemetry did not detect any arrhythmia except for PVCs. The patient is recalling family history with arrhythmia. I am concerned about underlying occult atrial fibrillation as a cause. HETAL did not show any source. I proceeded with trivial device implantation. PROCEDURE NOTE: After explaining the procedure to the patient, all pros and cons were explained. All questions were answered. The patient was brought to the procedure room, local anesthesia applied. No sedation was needed. A reveal LINQ device was implanted, takokat with serial number [id number] placed subcutaneously. Manual pressure and Dermabond applied. No complication noted. IN CONCLUSION: Successful reveal device implantation without any complications. Job ID: [id number] Dictated Date: 09/17/2016 12:24:13 Children'S Librarian Date: 09/18/2016 09:57:53 / ha
--- NOTE | 2016-09-18 11:12 | Occupational Ther Daily Note ---
OT Current Status-Daily Note Subjective Pt sitting in chair. No pain reported. Agreeable to OT. Appearance Alert, Cooperative Mental Status/Objective Functional [place] Measure 0=Not Assessed/NA 4=Minimal Assistance 1=Total Assistance 5=Supervision or Setup 2=Maximal Assistance 6=Modified [place] 3=Moderate Assistance 7=Complete [place] ADL-Treatment Pt ambulated to bathroom, FWW, CGA dur to her knee buckling. Pt toiled using grab bars to lower self on toilet, BSC over toilet, FWW, SBA. Pt sat on shower bench to doff blouse, pants, brief, socks. Pt washed/dried all body parts, hand held shower, shower bench, grab bars, SBA. Pt donned blouse,bra, brief, pants while sitting on shower bench. Pt used FWW for balance to pull up brief, pant up to waist, SBA. Pt ambulated in front of sink to brush teeth, hair FWW, CGA. Pt ambulated back to room to don socks, shoes while sitting on chair, FWW, CGA. Pt ambulated to gym, FWW, CGA. Functional [place] Measure 0=Not Assessed/NA 4=Minimal Assistance 1=Total Assistance 5=Supervision or Setup 2=Maximal Assistance 6=Modified [place] 3=Moderate Assistance 7=Complete IndependenceIRFPAI Quality Coding Scale 6 Independent with activity with or without an assistive device 5 Patient requires set up or clean up by helper. Patient completes activity by themselves 4 Supervision or touching assist (CGA). [place] provide cues , steadying assist 3 The helper provides less than half the effort to complete the activity 2 The helper provides more than half the effort to complete the activity 1 Dependent. The helper does all the effort to complete an activity 7 Patient refused to complete or attempt activity 9 The patient did not perform the activity before the current illness or injury 88 Not attempted due to Medical conditions or safety concerns Grooming (FIM): 6 (pt standing in front of sink using FWW) Bathing (FIM): 5 Bathing Location: L Arm, R Arm, L Upper Leg, R Upper Leg, L Lower Leg ( including foot), R Lower Leg (including foot), Chest, Abdomen, Buttocks, Perineal Area Upper Body (FIM): 5 Lower Body Dressing (FIM): 5 Toileting (FIM): 5 Transfers (B, C, W/C) (FIM): 5 Toilet/Commode Transfer (FIM): 5 Shower Transfer(FIM): 5 Other Treatment Pt used arm bike for 10 min 5 goyal for shoulder strengthening with no recovery breaks. Pt stood using FWW, CGA for balance for dynamic standing activity to increase grab and release movement. Pt ambulated back to room FWW, CGA Pt left sitting in chair. Call light in hand. All needs met. Education OT Patient Education: Progress toward Goal/Update tx plan, Purpose of tx/ functional activities Teaching Recipient: Patient Teaching Methods: Demonstration, Discussion Response to Teaching: Verbalize Understanding, Return Demonstration OT Short Term Goals Short Term Goals Time Frame: Sep 19, 2016 Grooming(FIM): 5 Upper Body Dressing(FIM): 5 Lower Body Dressing(FIM): 5 Toileting(FIM): 5 Transfers (B,C,W/C) (FIM): 4 (met 09/14/16) Toilet/Commode Transfer(FIM): 5 Additional Short Term Goals: 2-Verbalize Understanding, 3-ImproveStrength/[place] 1=Demonstrate adherence to instructed precautions during ADL tasks. 2=Patient will verbalize/demonstrate understanding of assistive devices/ modifications for ADL. 3=Patient will improve strength/tolerance for activity to enable patient to perform ADL's. OT Long-Term Goals Long-Term Goals Time Frame: Oct 04, 2016 Eating (FIM): 6 Eating (QC): 6 Oral Hygiene (QC): 6 Grooming(FIM): 6 Bathing(FIM): 6 Shower/Bathe Self (QC): 6 Upper Body Dressing(FIM): 6 Upper Body Dressing (QC): 6 Lower Body Dressing(FIM): 6 Lower Body Dressing (QC): 6 On/Off Footwear (QC): 6 Toileting(FIM): 6 Toileting Hygiene (QC): 6 Toilet/Commode Transfer(FIM): 6 Toilet/Commode Transfer (QC): 6 Shower Transfer(FIM): 6 Comprehension(FIM): 6 Expression (FIM): 7 Social Interaction(FIM): 6 Problem Solving(FIM): 6 Memory(FIM): 6 Increase bilat UE strength to 5/5 Additional Goals: 2-Verbalize Understanding, 3-ImproveStrength/Laurence 1=Demonstrate adherence to instructed precautions during ADL tasks. 2=Patient will verbalize/demonstrate understanding of assistive devices/ modifications for ADL. 3=Patient will improve strength/tolerance for activity to enable patient to perform ADL's. OT Education/Plan Problem List/Assessment Pt would benefit from skilled OT to increase her independence in basis self care to allow her to return home to live safely with after CVA with L sided weakness and incoordination, decr functional mobility with all impact her self care abilities Discharge Recommendations Plan/Recommendations: Continue POC Treatment Plan/Plan of Care Patient would benefit from OT for education, treatment and training to promote independence in ADL's, mobility, safety and/or upper extremity function for ADL' s. Plan of Care: ADL Retraining, Functional Mobility, Group Exercise/Act as Ind ( education, exercise, activity tolerance, coordination, functional activities, balance), UE Funct Exercise/Act, UE Neuromus Re-Ed/Coord Treatment Duration: Oct 04, 2016 Visits Per Week: 10-11 Minutes/Day (M-F): 75-90 Minutes/Day (Sat/[place]): 75-90 Rehab Potential: Good Time/GCodes Start Time: 08:00 Stop Time: 09:00 Total Time Billed (hr/min): 60 Billed Treatment Time visit, ADL 40 min, EX 20 min LEIA NESBITT Sep 18, 2016 11:12
--- NOTE | 2016-09-18 11:14 | Physical Therapy Daily Note ---
PT Daily Note-Current Subjective Pt agrees to Rx , c/o dizziness when sup to sit and sit to stand. States she is fearful of having another stroke. Pt asks if she might be able to get in out on left side like unto home situation. Pain Numeric Pain Scale: 0-No Pain Mental Status Patient Orientation: Normal For Age Transfers Functional [place] Measure 0=Not Assessed/NA 4=Minimal Assistance 1=Total Assistance 5=Supervision or Setup 2=Maximal Assistance 6=Modified [place] 3=Moderate Assistance 7=Complete IndependenceIRFPAI Quality Coding Scale 6 Independent with activity with or without an assistive device 5 Patient requires set up or clean up by helper. Patient completes activity by themselves 4 Supervision or touching assist (CGA). [place] provide cues , steadying assist 3 The helper provides less than half the effort to complete the activity 2 The helper provides more than half the effort to complete the activity 1 Dependent. The helper does all the effort to complete an activity 7 Patient refused to complete or attempt activity 9 The patient did not perform the activity before the current illness or injury 88 Not attempted due to Medical conditions or safety concerns Transfers (B, C, W/C) (FIM): 5 Scootin Rollin Supine to/from Sit: 5 Sit to/from Stand: 5 Bed to/from Chair: 5 Gait Training Does the Patient Walk?: Yes Gait (FIM): 5 Distance (FIM): 3=150 ft Gait Level of Assist: 5 Gait Persons Needed: 1 Gait Assistive Device: FWW requires skilled verbal instruction for gait and safety Exercises Seated Therapy Exercises: Ankle pumps, Sit to stand, Long arc quads, Hip flexion Seated Reps: 12 NuStep Minutes: 10 NuStep Workload: 2 Treatments pt. toileted and cleaned self as well as managing pants up down, pt. then stood at mirror to curl hair with SBA for dynamic balance Assessment Current Status: Good Progress PT Short Term Goals Short Term Goals Time Frame: Sep 19, 2016 Transfers (B,C,W/C) (FIM): 4 (met 09/14/16) Gait (FIM): 4 (met 08/2116) Stairs (FIM): 2 # of Steps: 4 Stairs Level of Assist: 4 PT Intermediate Goals Intermediate Goals PT Intermediate Goals Time Frame: Oct 03, 2016 Transfers (B,C,W/C) (FIM): 6 Sit to Lying (QC): 6 Lying-Sitting on Side/Bed(QC): 6 Sit to Stand (QC): 6 Rollin Roll Left to Right (QC): 6 Chair/Umz-uo-Cngaw Xfer(QC): 6 Car Transfer (QC): 5 Does the Patient Walk: Yes Gait (FIM): 6 Gait distance (FIM): 3=150 ft Walk 10 feet (QC): 6 Walk 10ft-Uneven Surface(QC): 6 Walk 50ft with 2 Turns (QC): 6 Walk 150 ft (QC): 6 Gait Level of Assist: 6 Gait Assistive Device: FWW Does the Pt use WC or Scooter?: No Stairs (FIM): 5 # of Steps: 8 1 Step (curb) (QC): 6 4 Steps (QC): 6 12 Steps (QC): 88 Stairs Level Of Assist: 6 Picking up an Object (QC): 5 PT Plan Treatment/Plan Treatment Plan: Continue Plan of Care Treatment Plan: Bed Mobility, Education, Functional Activity Laurence, Functional Strength, Group Therapy, Gait, Safety, Therapeutic Exercise, Transfers Treatment Duration: Oct 03, 2016 Visits Per Week: 10-15 Minutes/Day (M-F): 60-90 Minutes/Day (Sat/[place]ins): prn Safety Risks/Education Patient Education: Gait Training, Transfer Techniques, Correct Positioning, Safety Issues Teaching Recipient: Patient Teaching Methods: Demonstration, Discussion Response to Teaching: Verbalize Understanding, Return Demonstration, Reinforcement Needed Time/GCodes Time In: 1015 Time Out: 1115 Total Billed Treatment Time: 60 Total Billed Treatment 1,FA30m,EX30m G Codes Necessary: BHAVYA Bolanos VASCULAR TECHNOLOGIST SONOGRAPHER Sep 18, 2016 11:14
--- NOTE | 2016-09-18 13:14 | Speech Therapy Daily Note ---
Speech Daily Progress Note Subjective The patient was seated upright in recliner upon entrance. The patient greeted the clinician appropriately and agreed to participate in the speech therapy session on this date. Objective Oral Motor Exercises: Oral motor exercises were initiated on this date. The patient demonstrated high accuracy with the exercises, displaying 90% accuracy with mild clinician cueing (one occurrence of direct modeling). Assessment Assessment Current Status: Excellent Progress Treatment Plan Continue Plan of Care Communication Comprehension: 6 Expression: 5 Social Cognition Social Interaction: 7 Problem Solvin Memory: 5 Speech Short Term Goals Short Term Goals Short Term Goals 1. The patient will demonstrate oral motor exercises with 90% accuracy, independently. Time Frame-STG: One Week Speech Nursing Home Goals Remediation Consultant Goals 1. The patient will demonstrate increased articulatory precision (as independently reported by patient) for improved verbal communication. Time Frame: Two Weeks Comprehension: 6 Expression: 7 Social Interaction: 6 Problem Solvin Memory: 6 Speech-Plan Treatment Plan Speech Therapy Treatment Plan: Continue Plan of Care Treatment Duration: Sep 27, 2016 # of days/week Three Visits Per Week: Three Minutes/Day (M-F): 30-45 Rehab Potential: Good Safety Risks/Education Teaching Recipient: Patient Teaching Methods: Demonstration, Handout, Discussion Response to Teaching: Verbalize Understanding, Return Demonstration Education Topics Provided: Oral Motor Exercises Time Speech Therapy Time In: 09:00 Speech Therapy Time Out: 09:30 Total Billed Time: 30 Billed Treatment Time NelyOSMANI ELIZABETH Sep 18, 2016 13:14
--- NOTE | 2016-09-18 13:31 | Physical Therapy Daily Note ---
PT Daily Note-Current Subjective Pt. agrees to rx. States she feels so much better after todays Rx and feels she is closer to home. Pain Numeric Pain Scale: 0-No Pain Mental Status Patient Orientation: Normal For Age Transfers Functional [place] Measure 0=Not Assessed/NA 4=Minimal Assistance 1=Total Assistance 5=Supervision or Setup 2=Maximal Assistance 6=Modified [place] 3=Moderate Assistance 7=Complete IndependenceIRFPAI Quality Coding Scale 6 Independent with activity with or without an assistive device 5 Patient requires set up or clean up by helper. Patient completes activity by themselves 4 Supervision or touching assist (CGA). [place] provide cues , steadying assist 3 The helper provides less than half the effort to complete the activity 2 The helper provides more than half the effort to complete the activity 1 Dependent. The helper does all the effort to complete an activity 7 Patient refused to complete or attempt activity 9 The patient did not perform the activity before the current illness or injury 88 Not attempted due to Medical conditions or safety concerns all TRFs chair, BSC and chair SBA and some cues Gait Training Gait Assistive Device: FWW gait on carpet in smaller confined spaced with FWW and several turns with SBa to CGA and verbal cues for better clearance left foot. Pt. improved with safe chair approach Stair Training Stair Training: Handrails/: 2 handrails Stairs (FIM): 2 #of Steps: 8 Stairs: Pattern: Step to Level of Assist: 4 pt. simulated her situation at home with hand rail on right only as she ascends , pt held on with both hands both ways, did very well and states she feels more confident about home Treatments toileted with SBA Assessment Current Status: Excellent Progress good progress in all phases PT Short Term Goals Short Term Goals Time Frame: Sep 19, 2016 Transfers (B,C,W/C) (FIM): 4 (met 09/14/16) Gait (FIM): 4 (met 08/2116) Stairs (FIM): 2 # of Steps: 4 Stairs Level of Assist: 4 PT Senior Living Goals Client Renewal Specialist Goals PT Client Renewal Specialist Goals Time Frame: Oct 03, 2016 Transfers (B,C,W/C) (FIM): 6 Sit to Lying (QC): 6 Lying-Sitting on Side/Bed(QC): 6 Sit to Stand (QC): 6 Rollin Roll Left to Right (QC): 6 Chair/Cyf-ek-Bfzmx Xfer(QC): 6 Car Transfer (QC): 5 Does the Patient Walk: Yes Gait (FIM): 6 Gait distance (FIM): 3=150 ft Walk 10 feet (QC): 6 Walk 10ft-Uneven Surface(QC): 6 Walk 50ft with 2 Turns (QC): 6 Walk 150 ft (QC): 6 Gait Level of Assist: 6 Gait Assistive Device: FWW Does the Pt use WC or Scooter?: No Stairs (FIM): 5 # of Steps: 8 1 Step (curb) (QC): 6 4 Steps (QC): 6 12 Steps (QC): 88 Stairs Level Of Assist: 6 Picking up an Object (QC): 5 PT Plan Treatment/Plan Treatment Plan: Continue Plan of Care Treatment Plan: Bed Mobility, Education, Functional Activity Laurence, Functional Strength, Group Therapy, Gait, Safety, Therapeutic Exercise, Transfers Treatment Duration: Oct 03, 2016 Visits Per Week: 10-15 Minutes/Day (M-F): 60-90 Minutes/Day (Sat/[place]ins): prn Safety Risks/Education Patient Education: Gait Training, Transfer Techniques, Steps Teaching Recipient: Patient Teaching Methods: Demonstration, Discussion Response to Teaching: Verbalize Understanding, Return Demonstration, Reinforcement Needed Time/GCodes Time In: 1255 Time Out: 1325 Total Billed Treatment Time: 30 Total Billed Treatment 1,FA30m G Codes Necessary: BHAVYA Bolaons HEAD OF MARKETING ANALYTICS Sep 18, 2016 13:31
--- NOTE | 2016-09-18 15:14 | Therapy Group Daily Note ---
Therapy Daily Group Note Patient Education Topic Exercises, Other List Below (education on arthritis, ) Exercises Stretching, UE Exercise Other/Notes Pt participated socially by introducing self and describing what she likes to do to help her relax. Topic of discussion was arthritis, carpal tunnel and the benefits of using a paraffin bath, different types of AE for arthritis. Pt was able to place both hands in the paraffin bath. Pt then completed nerve glide exercise. Pt ambulated back to room, FWW, [facility]. Pt left sitting in chair. Call light in hand. All needs met. Start Time: 13:00 Stop Time: 14:10 Total Billed Treatment Time: 70 Total Billed Treatment 1-GRP LEIA NESBITT Sep 18, 2016 15:14
[2016-09-18 18:42] VITALS: BP 123/71
[2016-09-18] MEDS: ATORVASTATIN 20 MG (LIPITOR) TABLET PO SCH (21:08)
[2016-09-19 06:00] VITALS: BP 145/91
[2016-09-19] MEDS: CLOPIDOGREL 75 MG (PLAVIX) TABLET PO SCH (08:07)
[2016-09-19] MEDS: NAPROXEN 250 MG (NAPROSYN) TABLET PO SCH (08:07)
[2016-09-19] MEDS: HYDROCHLOROTHIAZIDE 25 MG (HCTZ) TAB PO SCH (08:07)
[2016-09-19] MEDS: meTOprolol TARTRATE 25 MG (LOPRESSOR) TABLET PO SCH ×2 (08:07→20:57)
[2016-09-19] MEDS: lisINopril 10 MG (PRINIVIL) TAB PO SCH (08:07)
[2016-09-19] MEDS: DOCUSATE SODIUM 100 MG (COLACE) CAP PO SCH ×2 (08:08→20:57)
[2016-09-19] MEDS: ASPIRIN E.C. 81 MG (ECOTRIN) TAB PO SCH (08:08)
--- NOTE | 2016-09-19 08:17 | Cardiology Progress Note ---
Subjective Subjective/Events-last exam Patient is doing well. Complains of mild tenderness and bruising at Linq insertion site. Denies any CP or palpitations Review of Systems General: No Night Sweats, No Fatigue, No Malaise, No Appetite HEENT: No Visual Changes, No Dysphasia, No Sore Throat Pulmonary: No Dyspnea, No Cough Cardiovascular: No: Chest Pain, Palpitations Gastrointestinal: No: Abdominal Pain, Nausea, Vomiting Genitourinary: No Dysuria, No Frequency Musculoskeletal: No: back pain, neck pain Neurological: No: Change in speech, Confusion, Numbness, Weakness Objective-Cardiology Exam Last Set of Vital Signs Vital Signs 09/16/16 09/19/16 08:32 06:00 Temp 97.3 Pulse 73 Resp 18 B/P 145/91 Pulse Ox 99 O2 Delivery Room Air O2 Flow Rate 2.00 Capillary Refill : I&O Intake and Output 09/19/16 00:00 Intake Total 990 ml Balance 990 ml Intake Oral 990 ml # Voids 10 # Bowel Movements 3 General: Alert, Oriented X3, Cooperative, No Acute Distress HEENT: Atraumatic, PERRLA, EOMI, Mucous Memb Moist/[place] Neck: Supple, No JVD Lungs: Clear to Auscultation Heart: Regular Rate, Normal S1, Normal S2 Abdomen: Normal Bowel Sounds, Soft, No Tenderness Extremities: No Clubbing, No Cyanosis, No Edema Skin: No Rashes, No Breakdown Neuro: Normal Speech, Other (left side weakness in the lower extremity more than the upper extremity, mild facial droop) A/P-Cardiology Admission Diagnosis Acute CVA Hypertension Hyperlipidemia Sinus tachycardia Assessment/Plan Acute CVA with left sided weakness- CT Head with 3cm calcified meningioma, otherwise negative, given tPA in ER. MRI brain revealed right thalmus 1.5cm acute infarct. Continues to have left sided facial drooping with left sided weakness. On Plavix and ASA. Carotid US revealed nonobstructive disease bilaterally. echocardiogram showed normal left ventricular size and systolic function, ejection fraction 60 percent, left atrium is in the upper normal limit in size. Pulmonary artery pressure is normal. HETAL didn't show any abnormality, continue on current treatment, no arrhythmia detected, status post Reveal implant. No complication Sinus tachycardia with PVC's, better, continue to monitor heart rate and blood pressure Hypertension, controlled. Continue to monitor BP/HR Hyperlipidemia, on Lipitor. Monitor lipids Hx meningioma- CT head revealed 3cm calcified meningioma. Clinical Quality Measures DVT/VTE Risk/Contraindication: Risk Factor Score Per Nursin RFS Level Per Nursing on Admit: 4+=Very High CRISS IBARRA Sep 19, 2016 08:17
--- NOTE | 2016-09-19 08:24 | PM & R (SOAP) Progress Note ---
Subjective Subjective/Events-last exam Patient was seen in her room this AM Patient SBA for transfers,Appreciate DR Hatch note and orders.Reveal device implanted Objective Exam Last Set of Vital Signs Vital Signs Date Time Temp Pulse Resp B/P Pulse Ox O2 Delivery O2 Flow Rate FiO2 09/19/16 06:00 97.3 73 18 145/91 99 Room Air 09/16/16 08:32 2.00 Capillary Refill : I&O Intake and Output 09/19/16 00:00 Intake Total 990 ml Balance 990 ml Intake Oral 990 ml # Voids 10 # Bowel Movements 3 General: Alert, Oriented X3, Cooperative, No Acute Distress HEENT: Atraumatic, PERRLA, EOMI, Mucous Memb Moist/[place] Neck: Supple, No JVD Lungs: Clear to Auscultation Heart: Regular Rate, Normal S1, Normal S2 Abdomen: Normal Bowel Sounds, Soft, No Tenderness Extremities: No Clubbing, No Cyanosis, No Edema Skin: No Rashes, No Breakdown Neuro: Normal Speech, Other (left side weakness in the lower extremity more than the upper extremity, mild facial droop) Assessment/Plan Assessment Rt lacunar thalamic infarct with mild left HP s/p TPA HTN now better controlled Sinus tach improved Plan Continue PT/OT ST has seen F/U with Dr salvador and Kimberley carlosn Monitor Bllod pressure and adjust meds as appropriate Team Conference held yesterday-See report for full functional update and POC and DEANNA OLGUIN MD Sep 19, 2016 08:24
--- NOTE | 2016-09-19 13:00 | Physical Therapy Daily Note ---
PT Daily Note-Current Subjective Pt. in indep apt. Moved per nursing . This PAY PER CLICK STRATEGIST sharing that pt. is not quite up ad estefani status. Pt. understands this. Pain Numeric Pain Scale: 0-No Pain Mental Status Patient Orientation: Normal For Age Transfers Functional [place] Measure 0=Not Assessed/NA 4=Minimal Assistance 1=Total Assistance 5=Supervision or Setup 2=Maximal Assistance 6=Modified [place] 3=Moderate Assistance 7=Complete IndependenceIRFPAI Quality Coding Scale 6 Independent with activity with or without an assistive device 5 Patient requires set up or clean up by helper. Patient completes activity by themselves 4 Supervision or touching assist (CGA). [place] provide cues , steadying assist 3 The helper provides less than half the effort to complete the activity 2 The helper provides more than half the effort to complete the activity 1 Dependent. The helper does all the effort to complete an activity 7 Patient refused to complete or attempt activity 9 The patient did not perform the activity before the current illness or injury 88 Not attempted due to Medical conditions or safety concerns Transfers (B, C, W/C) (FIM): 6 Scootin Rollin Supine to/from Sit: 6 Sit to/from Stand: 6 Bed to/from Chair: 6 Gait Training Does the Patient Walk?: Yes Gait (FIM): 5 Distance (FIM): 3=150 ft (x3) Gait Level of Assist: 5 Gait Persons Needed: 1 Gait Assistive Device: FWW Wheelchair Training Type of Wheelchair: Manual 10 ft slow moving, short weak movements Stair Training Stair Training: Handrails/: 1 handrail Stairs (FIM): 2 #of Steps: 4 Stairs: Pattern: Step to Level of Assist: 4 Exercises Supine Ex: Bridging, Ankle pumps, Quad Set, Rolling, Glut sets, Heel Slides, Short Arc Quads, Scooting, Straight leg raise, Hip abd/add Supine Reps: 12 Seated Therapy Exercises: Ankle pumps, Sit to stand, Long arc quads, Chair press-ups, Hip flexion Seated Reps: 15 Standing: Hip Abduction, Heel/toe raises, Marching, Mini squats, Sit to Stand Standing Reps: 15 NuStep Minutes: 10 NuStep Workload: 3 Assessment Current Status: Good Progress good progress in all phases PT Short Term Goals Short Term Goals Time Frame: Sep 19, 2016 Transfers (B,C,W/C) (FIM): 4 (met 09/14/16) Gait (FIM): 4 (met 08/2116) Stairs (FIM): 2 # of Steps: 4 Stairs Level of Assist: 4 PT Base Cloth Inspector Goals Base Cloth Inspector Goals PT Shelter Goals Time Frame: Oct 03, 2016 Transfers (B,C,W/C) (FIM): 6 Sit to Lying (QC): 6 Lying-Sitting on Side/Bed(QC): 6 Sit to Stand (QC): 6 Rollin Roll Left to Right (QC): 6 Chair/[id number]-hk-Jwgcv Xfer(QC): 6 Car Transfer (QC): 5 Does the Patient Walk: Yes Gait (FIM): 6 Gait distance (FIM): 3=150 ft Walk 10 feet (QC): 6 Walk 10ft-Uneven Surface(QC): 6 Walk 50ft with 2 Turns (QC): 6 Walk 150 ft (QC): 6 Gait Level of Assist: 6 Gait Assistive Device: FWW Does the Pt use WC or Scooter?: No Stairs (FIM): 5 # of Steps: 8 1 Step (curb) (QC): 6 4 Steps (QC): 6 12 Steps (QC): 88 Stairs Level Of Assist: 6 Picking up an Object (QC): 5 PT Plan Treatment/Plan Treatment Plan: Continue Plan of Care Treatment Plan: Bed Mobility, Education, Functional Activity Laurence, Functional Strength, Group Therapy, Gait, Safety, Therapeutic Exercise, Transfers Treatment Duration: Oct 03, 2016 Visits Per Week: 10-15 Minutes/Day (M-F): 60-90 Minutes/Day (Sat/Hankins): prn Safety Risks/Education Patient Education: Gait Training, Transfer Techniques, Steps, Issued Written HEP, Correct Positioning, W/C Management, Safety Issues Teaching Recipient: Patient Teaching Methods: Demonstration, Discussion Response to Teaching: Verbalize Understanding, Return Demonstration, Reinforcement Needed Time/GCodes Time In: 1115 Time Out: 1215 Total Billed Treatment Time: 60 Total Billed Treatment 1,FA30m,FA15m,EX15m G Codes Necessary: BHAVYA Bolanos PAY PER CLICK STRATEGIST Sep 19, 2016 13:00
--- NOTE | 2016-09-19 14:40 | Occupational Ther Daily Note ---
OT Current Status-Daily Note Subjective Pt sitting in chair. Pt stated she was feeling sleepy again due to having a restless night. No pain reported. Agreeable to OT. Appearance Alert, Cooperative Mental Status/Objective Functional [place] Measure 0=Not Assessed/NA 4=Minimal Assistance 1=Total Assistance 5=Supervision or Setup 2=Maximal Assistance 6=Modified [place] 3=Moderate Assistance 7=Complete [place] ADL-Treatment Prior to therapy pt washed face,hands and changed clothes. Pt ambulated to bathroom, FWW, CGA. Pt toiled using grab bars to lower self on toilet, BSC over toilet, FWW, SBA. Pt managed clothing and hygiene by using grab bars for balance , SBA. Pt ambulated to sink to wash hands and curl her hair using an electrical iron. Pt was told there would be a chair placed behind her in case she needed to sit down. Pt ambulated to gym FWW, CGA. Functional [place] Measure 0=Not Assessed/NA 4=Minimal Assistance 1=Total Assistance 5=Supervision or Setup 2=Maximal Assistance 6=Modified [place] 3=Moderate Assistance 7=Complete IndependenceIRFPAI Quality Coding Scale 6 Independent with activity with or without an assistive device 5 Patient requires set up or clean up by helper. Patient completes activity by themselves 4 Supervision or touching assist (CGA). [place] provide cues , steadying assist 3 The helper provides less than half the effort to complete the activity 2 The helper provides more than half the effort to complete the activity 1 Dependent. The helper does all the effort to complete an activity 7 Patient refused to complete or attempt activity 9 The patient did not perform the activity before the current illness or injury 88 Not attempted due to Medical conditions or safety concerns Other Treatment Pt used arm bike for 15 min 10 goyal for strengthening with no recovery breaks. Pt demonstrated fine motor skills by placing pegs on micheal and [id number]-[id number] activity. Pt worked on pinch strength using red(medium)resistance theraputty with beads. Pt stood using FWW, CGA for balance and standing activity to increase grab and release movement. Paraffin bath was used on pt's L hand to control finger joint pain. Pt ambulated back to room FWW, CGA Pt left sitting in chair. Call light in hand. All needs met. Education OT Patient Education: Progress toward Goal/Update tx plan, Purpose of tx/ functional activities Teaching Recipient: Patient Teaching Methods: Discussion Response to Teaching: Verbalize Understanding, Return Demonstration OT Short Term Goals Short Term Goals Time Frame: Sep 19, 2016 Grooming(FIM): 5 Upper Body Dressing(FIM): 5 Lower Body Dressing(FIM): 5 Toileting(FIM): 5 Transfers (B,C,W/C) (FIM): 4 (met 09/14/16) Toilet/Commode Transfer(FIM): 5 Additional Short Term Goals: 2-Verbalize Understanding, 3-ImproveStrength/[place] 1=Demonstrate adherence to instructed precautions during ADL tasks. 2=Patient will verbalize/demonstrate understanding of assistive devices/ modifications for ADL. 3=Patient will improve strength/tolerance for activity to enable patient to perform ADL's. OT Maintenance Trainer Goals Maintenance Trainer Goals Time Frame: Oct 04, 2016 Eating (FIM): 6 Eating (QC): 6 Oral Hygiene (QC): 6 Grooming(FIM): 6 Bathing(FIM): 6 Shower/Bathe Self (QC): 6 Upper Body Dressing(FIM): 6 Upper Body Dressing (QC): 6 Lower Body Dressing(FIM): 6 Lower Body Dressing (QC): 6 On/Off Footwear (QC): 6 Toileting(FIM): 6 Toileting Hygiene (QC): 6 Toilet/Commode Transfer(FIM): 6 Toilet/Commode Transfer (QC): 6 Shower Transfer(FIM): 6 Comprehension(FIM): 6 Expression (FIM): 7 Social Interaction(FIM): 6 Problem Solving(FIM): 6 Memory(FIM): 6 Increase bilat UE strength to 5/5 Additional Goals: 2-Verbalize Understanding, 3-ImproveStrength/[place] 1=Demonstrate adherence to instructed precautions during ADL tasks. 2=Patient will verbalize/demonstrate understanding of assistive devices/ modifications for ADL. 3=Patient will improve strength/tolerance for activity to enable patient to perform ADL's. OT Education/Plan Problem List/Assessment Pt would benefit from skilled OT to increase her independence in basis self care to allow her to return home to live safely with after CVA with L sided weakness and incoordination, decr functional mobility with all impact her self care abilities Discharge Recommendations Plan/Recommendations: Continue POC Treatment Plan/Plan of Care Patient would benefit from OT for education, treatment and training to promote independence in ADL's, mobility, safety and/or upper extremity function for ADL' s. Plan of Care: ADL Retraining, Functional Mobility, Group Exercise/Act as Ind ( education, exercise, activity tolerance, coordination, functional activities, balance), UE Funct Exercise/Act, UE Neuromus Re-Ed/Coord Treatment Duration: Oct 04, 2016 Visits Per Week: 10-11 Minutes/Day (M-F): 75-90 Minutes/Day (Sat/Hankins): 75-90 Rehab Potential: Good Time/GCodes Start Time: 09:00 Stop Time: 10:30 Total Time Billed (hr/min): 90 Billed Treatment Time Visit, ADL 20, EX 70 min ARDEN PIERRE OT Sep 19, 2016 14:40 Billed Treatment Time Visit, ADL 20, EX 70 min ARDEN PIERRE OT Sep 19, 2016 14:40
--- NOTE | 2016-09-19 14:44 | Physical Therapy Daily Note ---
PT Daily Note-Current Subjective Agreeable to Rx. Anxious to be up ad estefani Mental Status Patient Orientation: Normal For Age Transfers Functional [place] Measure 0=Not Assessed/NA 4=Minimal Assistance 1=Total Assistance 5=Supervision or Setup 2=Maximal Assistance 6=Modified [place] 3=Moderate Assistance 7=Complete IndependenceIRFPAI Quality Coding Scale 6 Independent with activity with or without an assistive device 5 Patient requires set up or clean up by helper. Patient completes activity by themselves 4 Supervision or touching assist (CGA). [place] provide cues , steadying assist 3 The helper provides less than half the effort to complete the activity 2 The helper provides more than half the effort to complete the activity 1 Dependent. The helper does all the effort to complete an activity 7 Patient refused to complete or attempt activity 9 The patient did not perform the activity before the current illness or injury 88 Not attempted due to Medical conditions or safety concerns all TRFs Mod I Gait Training Gait Assistive Device: FWW [id number], Mod I, retro and side walk 10 ft no LOB slow with instruction Exercises Supine Ex: Ankle pumps, Quad Set, Rolling, Heel Slides, Hip abd/add Supine Reps: 12 Assessment Current Status: Good Progress PT Short Term Goals Short Term Goals Time Frame: Sep 19, 2016 Transfers (B,C,W/C) (FIM): 4 (met 09/14/16) Gait (FIM): 4 (met 08/2116) Stairs (FIM): 2 # of Steps: 4 Stairs Level of Assist: 4 PT Usp Goals Usp Goals PT Index Editor Goals Time Frame: Oct 03, 2016 Transfers (B,C,W/C) (FIM): 6 Sit to Lying (QC): 6 Lying-Sitting on Side/Bed(QC): 6 Sit to Stand (QC): 6 Rollin Roll Left to Right (QC): 6 Chair/Crb-fe-Bipar Xfer(QC): 6 Car Transfer (QC): 5 Does the Patient Walk: Yes Gait (FIM): 6 Gait distance (FIM): 3=150 ft Walk 10 feet (QC): 6 Walk 10ft-Uneven Surface(QC): 6 Walk 50ft with 2 Turns (QC): 6 Walk 150 ft (QC): 6 Gait Level of Assist: 6 Gait Assistive Device: FWW Does the Pt use WC or Scooter?: No Stairs (FIM): 5 # of Steps: 8 1 Step (curb) (QC): 6 4 Steps (QC): 6 12 Steps (QC): 88 Stairs Level Of Assist: 6 Picking up an Object (QC): 5 PT Plan Treatment/Plan Treatment Plan: Continue Plan of Care Treatment Plan: Bed Mobility, Education, Functional Activity Laurence, Functional Strength, Group Therapy, Gait, Safety, Therapeutic Exercise, Transfers Treatment Duration: Oct 03, 2016 Visits Per Week: 10-15 Minutes/Day (M-F): 60-90 Minutes/Day (Sat/Hankins): prn Safety Risks/Education Patient Education: Gait Training, Transfer Techniques Teaching Recipient: Patient Teaching Methods: Demonstration, Discussion Response to Teaching: Verbalize Understanding, Return Demonstration, Reinforcement Needed Time/GCodes Time In: 1400 Time Out: 1430 Total Billed Treatment Time: 30 Total Billed Treatment 1,GT30m G Codes Necessary: BHAVYA Bolanos MARINE ELECTRICIAN Sep 19, 2016 14:44
--- NOTE | 2016-09-19 15:16 | Cardiology Progress Note ---
Subjective Subjective/Events-last exam Patient is sitting in a chair, feeling better, denied any chest pain. No palpitation Objective-Cardiology Exam Last Set of Vital Signs Vital Signs 09/16/16 09/19/16 08:32 06:00 Temp 97.3 Pulse 73 Resp 18 B/P 145/91 Pulse Ox 99 O2 Delivery Room Air O2 Flow Rate 2.00 Capillary Refill : I&O Intake and Output 09/19/16 00:00 Intake Total 990 ml Balance 990 ml Intake Oral 990 ml # Voids 10 # Bowel Movements 3 General: Alert, Oriented X3, Cooperative, No Acute Distress HEENT: Atraumatic, PERRLA, EOMI, Mucous Memb Moist/[place] Neck: Supple, No JVD Lungs: Clear to Auscultation Heart: Regular Rate, Normal S1, Normal S2 Abdomen: Normal Bowel Sounds, Soft, No Tenderness Extremities: No Clubbing, No Cyanosis, No Edema Skin: No Rashes, No Breakdown Neuro: Normal Speech, Other (left side weakness in the lower extremity more than the upper extremity, mild facial droop) A/P-Cardiology Admission Diagnosis Acute CVA Hypertension Hyperlipidemia Sinus tachycardia Assessment/Plan Acute CVA with left sided weakness- CT Head with 3cm calcified meningioma, otherwise negative, given tPA in ER. MRI brain revealed right thalmus 1.5cm acute infarct. Continues to have left sided facial drooping with left sided weakness. On Plavix and ASA. Carotid US revealed nonobstructive disease bilaterally. echocardiogram showed normal left ventricular size and systolic function, ejection fraction 60 percent, left atrium is in the upper normal limit in size. Pulmonary artery pressure is normal. HETAL didn't show any abnormality, continue on current treatment, no arrhythmia detected, status post Reveal implant. No complication Sinus tachycardia with PVC's, better, continue to monitor heart rate and blood pressure Hypertension, controlled. Continue to monitor BP/HR Hyperlipidemia, on Lipitor. Monitor lipids Hx meningioma- CT head revealed 3cm calcified meningioma. Clinical Quality Measures DVT/VTE Risk/Contraindication: Risk Factor Score Per Nursin RFS Level Per Nursing on Admit: 4+=Very High MECHELLE BILLY MD Sep 19, 2016 15:15
[2016-09-19 19:22] VITALS: BP 154/76
[2016-09-19] MEDS: ATORVASTATIN 20 MG (LIPITOR) TABLET PO SCH (20:57)
[2016-09-20 06:00] VITALS: BP 138/80
[2016-09-20] MEDS: DOCUSATE SODIUM 100 MG (COLACE) CAP PO SCH ×2 (08:02→21:15)
[2016-09-20] MEDS: NAPROXEN 250 MG (NAPROSYN) TABLET PO SCH (08:02)
[2016-09-20] MEDS: lisINopril 10 MG (PRINIVIL) TAB PO SCH (08:02)
[2016-09-20] MEDS: CLOPIDOGREL 75 MG (PLAVIX) TABLET PO SCH (08:02)
[2016-09-20] MEDS: HYDROCHLOROTHIAZIDE 25 MG (HCTZ) TAB PO SCH (08:02)
[2016-09-20] MEDS: meTOprolol TARTRATE 25 MG (LOPRESSOR) TABLET PO SCH (08:02)
[2016-09-20] MEDS: ASPIRIN E.C. 81 MG (ECOTRIN) TAB PO SCH (08:03)
--- NOTE | 2016-09-20 08:34 | Cardiology Progress Note ---
Subjective Subjective/Events-last exam Patient is in bed, feeling better, no new complaint, BP is still elevated Review of Systems General: No Chills, No Night Sweats, No Fatigue, No Malaise, No Appetite, No Other HEENT: No Head Aches, No Visual Changes, No Eye Pain, No Ear Pain, No Dysphasia , No Sinus Congestion, No Post Nasal Drip, No Sore Throat, No Other Pulmonary: No Dyspnea, No Cough, No Pleuritic Chest Pain, No Other Cardiovascular: No: Chest Pain, Edema, Lt Headedness, Orthopnea, Other, Palpitations, Paroxysmal Noc. Dyspnea Objective-Cardiology Exam Last Set of Vital Signs Vital Signs 09/16/16 09/20/16 08:32 06:00 Temp 97.5 Pulse 69 Resp 20 B/P 138/80 Pulse Ox 96 O2 Delivery Room Air O2 Flow Rate 2.00 Capillary Refill : I&O Intake and Output 09/20/16 00:00 Intake Total 990 ml Balance 990 ml Intake Oral 990 ml # Voids 10 # Bowel Movements 2 General: Alert, Oriented X3, Cooperative, No Acute Distress HEENT: Atraumatic, PERRLA, EOMI, Mucous Memb Moist/[place] Neck: Supple, No JVD Lungs: Clear to Auscultation Heart: Regular Rate, Normal S1, Normal S2 Abdomen: Normal Bowel Sounds, Soft, No Tenderness Extremities: No Clubbing, No Cyanosis, No Edema Skin: No Rashes, No Breakdown Neuro: Normal Speech, Other (left side weakness in the lower extremity more than the upper extremity, mild facial droop) A/P-Cardiology Admission Diagnosis Acute CVA Hypertension Hyperlipidemia Sinus tachycardia Assessment/Plan Acute CVA with left sided weakness- CT Head with 3cm calcified meningioma, otherwise negative, given tPA in ER. MRI brain revealed right thalmus 1.5cm acute infarct. Continues to have left sided facial drooping with left sided weakness. On Plavix and ASA. Carotid US revealed nonobstructive disease bilaterally. echocardiogram showed normal left ventricular size and systolic function, ejection fraction 60 percent, left atrium is in the upper normal limit in size. Pulmonary artery pressure is normal. HETAL didn't show any abnormality, continue on current treatment, no arrhythmia detected, status post Reveal implant, continue to monitor Sinus tachycardia with PVC's, better, continue to monitor heart rate and blood pressure Hypertension, I will increase Lopressor to 50 mg BID and monitor Hyperlipidemia, on Lipitor. Monitor lipids Hx meningioma- CT head revealed 3cm calcified meningioma. Clinical Quality Measures DVT/VTE Risk/Contraindication: Risk Factor Score Per Nursin RFS Level Per Nursing on Admit: 4+=Very High MECHELLE BILLY MD Sep 20, 2016 08:34
--- NOTE | 2016-09-20 08:46 | PM & R (SOAP) Progress Note ---
Subjective Subjective/Events-last exam Patient was seen in her room this AM Doing well in Independent Apartment setting Apppreciate DR Hatch note and orders Med increased for better control of HTN Patient MOD Independent for transfers and SBA for ambulation with walker Objective Exam Last Set of Vital Signs Vital Signs Date Time Temp Pulse Resp B/P Pulse Ox O2 Delivery O2 Flow Rate FiO2 09/20/16 06:00 97.5 69 20 138/80 96 Room Air 09/16/16 08:32 2.00 Capillary Refill : I&O Intake and Output 09/20/16 00:00 Intake Total 990 ml Balance 990 ml Intake Oral 990 ml # Voids 10 # Bowel Movements 2 General: Alert, Oriented X3, Cooperative, No Acute Distress HEENT: Atraumatic, PERRLA, EOMI, Mucous Memb Moist/[place] Neck: Supple, No JVD Lungs: Clear to Auscultation Heart: Regular Rate, Normal S1, Normal S2 Abdomen: Normal Bowel Sounds, Soft, No Tenderness Extremities: No Clubbing, No Cyanosis, No Edema Skin: No Rashes, No Breakdown Neuro: Normal Speech, Other (left side weakness in the lower extremity more than the upper extremity, mild facial droop) Assessment/Plan Assessment Rt lacunar thalamic infarct with mild left HP s/p TPA HTN meds being adjusted Sinus tach improved Plan Continue PT/OT ST has seen F/U with Dr salvador and Kimberley prkimmy Monitor Bllod pressure and adjust meds as appropriate Team Conference held 09-18-16-See report for full functional update and POC and DEANNA OLGUIN MD Sep 20, 2016 08:46
--- NOTE | 2016-09-20 08:56 | Occupational Ther Daily Note ---
OT Current Status-Daily Note Subjective Pt sitting in chair. Pt stated she had a good night sleep. No pain reported. Agreeable to OT. Appearance Alert, Cooperative Mental Status/Objective Functional [place] Measure 0=Not Assessed/NA 4=Minimal Assistance 1=Total Assistance 5=Supervision or Setup 2=Maximal Assistance 6=Modified [place] 3=Moderate Assistance 7=Complete [place] ADL-Treatment Prior to therapy pt had already changed clothes. Pt walked to bathroom and stood in front of sink to wash face,hands, brush teeth and hair, FWW, CGA. Pt ambulated to gym FWW, CGA. . Pt ambulated back to room FWW, CGA. Pt toileted and used grab bars to lower self on toilet, BSC over toilet, FWW, SBA. Pt managed clothing and hygiene. Pt then walked to front of sink to curl her hair using electric curling iron. Pt asked to place a chair behind her in case she needed to sit. Pt ambulated back to room. Pt left sitting in chair. Call light in hand. All needs met. Functional [place] Measure 0=Not Assessed/NA 4=Minimal Assistance 1=Total Assistance 5=Supervision or Setup 2=Maximal Assistance 6=Modified [place] 3=Moderate Assistance 7=Complete IndependenceIRFPAI Quality Coding Scale 6 Independent with activity with or without an assistive device 5 Patient requires set up or clean up by helper. Patient completes activity by themselves 4 Supervision or touching assist (CGA). [place] provide cues , steadying assist 3 The helper provides less than half the effort to complete the activity 2 The helper provides more than half the effort to complete the activity 1 Dependent. The helper does all the effort to complete an activity 7 Patient refused to complete or attempt activity 9 The patient did not perform the activity before the current illness or injury 88 Not attempted due to Medical conditions or safety concerns Other Treatment Pt used arm bike for 15 min 10 goyal with no recovery breaks for strengthening to help with transfers. Education OT Patient Education: Progress toward Goal/Update tx plan, Purpose of tx/ functional activities Teaching Recipient: Patient Teaching Methods: Discussion Response to Teaching: Verbalize Understanding, Return Demonstration OT Short Term Goals Short Term Goals Time Frame: Sep 19, 2016 Grooming(FIM): 5 Upper Body Dressing(FIM): 5 Lower Body Dressing(FIM): 5 Toileting(FIM): 5 Transfers (B,C,W/C) (FIM): 4 (met 09/14/16) Toilet/Commode Transfer(FIM): 5 Additional Short Term Goals: 2-Verbalize Understanding, 3-ImproveStrength/Laurence 1=Demonstrate adherence to instructed precautions during ADL tasks. 2=Patient will verbalize/demonstrate understanding of assistive devices/ modifications for ADL. 3=Patient will improve strength/tolerance for activity to enable patient to perform ADL's. OT Senior Care Goals Vest Backer Goals Time Frame: Oct 04, 2016 Eating (FIM): 6 Eating (QC): 6 Oral Hygiene (QC): 6 Grooming(FIM): 6 Bathing(FIM): 6 Shower/Bathe Self (QC): 6 Upper Body Dressing(FIM): 6 Upper Body Dressing (QC): 6 Lower Body Dressing(FIM): 6 Lower Body Dressing (QC): 6 On/Off Footwear (QC): 6 Toileting(FIM): 6 Toileting Hygiene (QC): 6 Toilet/Commode Transfer(FIM): 6 Toilet/Commode Transfer (QC): 6 Shower Transfer(FIM): 6 Comprehension(FIM): 6 Expression (FIM): 7 Social Interaction(FIM): 6 Problem Solving(FIM): 6 Memory(FIM): 6 Increase bilat UE strength to 5/5 Additional Goals: 2-Verbalize Understanding, 3-ImproveStrength/Laurence 1=Demonstrate adherence to instructed precautions during ADL tasks. 2=Patient will verbalize/demonstrate understanding of assistive devices/ modifications for ADL. 3=Patient will improve strength/tolerance for activity to enable patient to perform ADL's. OT Education/Plan Problem List/Assessment Pt would benefit from skilled OT to increase her independence in basis self care to allow her to return home to live safely with after CVA with L sided weakness and incoordination, decr functional mobility with all impact her self care abilities Discharge Recommendations Plan/Recommendations: Continue POC Treatment Plan/Plan of Care Patient would benefit from OT for education, treatment and training to promote independence in ADL's, mobility, safety and/or upper extremity function for ADL' s. Plan of Care: ADL Retraining, Functional Mobility, Group Exercise/Act as Ind ( education, exercise, activity tolerance, coordination, functional activities, balance), UE Funct Exercise/Act, UE Neuromus Re-Ed/Coord Treatment Duration: Oct 04, 2016 Visits Per Week: 10-11 Minutes/Day (M-F): 75-90 Minutes/Day (Sat/Hankins): 75-90 Rehab Potential: Good Time/GCodes Start Time: 08:00 Stop Time: 09:00 Total Time Billed (hr/min): 60 Billed Treatment Time visit, ADL 45, EX 15 LIEA NESBITT Sep 20, 2016 08:55 LEIA NESBITT Sep 20, 2016 08:55
--- NOTE | 2016-09-20 10:19 | Speech Therapy Daily Note ---
Speech Daily Progress Note Subjective The patient was seated upright in recliner upon entrance. The patient greeted the clinician appropriately and agreed to participate in the speech therapy session on this date. Objective Oral Motor Exercises: Oral motor exercises were continued on this date. The patient demonstrated high accuracy with the exercises, displaying 90% accuracy with mild clinician cueing (one occurrence of direct modeling for lingual resistance exercise). Assessment Assessment Current Status: Excellent Progress Treatment Plan Continue Plan of Care Communication Comprehension: 6 Expression: 6 Social Cognition Social Interaction: 6 Problem Solvin Memory: 6 Speech Short Term Goals Short Term Goals Short Term Goals 1. The patient will demonstrate oral motor exercises with 90% accuracy, independently. Time Frame-STG: One Week Speech Fdc Goals Refining Supervisor Goals 1. The patient will demonstrate increased articulatory precision (as independently reported by patient) for improved verbal communication. Time Frame: Two Weeks Comprehension: 6 Expression: 7 Social Interaction: 6 Problem Solvin Memory: 6 Speech-Plan Treatment Plan Speech Therapy Treatment Plan: Continue Plan of Care Treatment Duration: Sep 27, 2016 # of days/week Three Visits Per Week: Three Minutes/Day (M-F): 30-45 Rehab Potential: Good Safety Risks/Education Teaching Recipient: Patient Teaching Methods: Demonstration, Handout, Discussion Response to Teaching: Verbalize Understanding, Return Demonstration Education Topics Provided: Oral Motor Exercises Time Speech Therapy Time In: 09:30 Speech Therapy Time Out: 10:00 Total Billed Time: 30 Billed Treatment Time Nely SOMMERKVNG BROWNPeteyDORA ST Sep 20, 2016 10:19
[2016-09-20] MEDS: meTOprolol TARTRATE 50 MG (LOPRESSOR) TAB PO SCH ×2 (10:59→21:15)
--- NOTE | 2016-09-20 12:10 | Physical Therapy Daily Note ---
PT Daily Note-Current Subjective Pt. agrees to Rx. Feeling ready to be cleared for up ad estefani about her room and the unit. States she loved sleeping in the tenorio bed and finally had a good nights sleep. Wants to practice car TRFs as she will have to go home in a large truck. Pt. concerned RE: f/u physician care and asks if someone could assist her in finding/moving to a new Dr. SW was called and had this done and made f/u appt for pt. for after DC with Dr Moses Pain Numeric Pain Scale: 0-No Pain Mental Status Patient Orientation: Normal For Age Transfers Functional [place] Measure 0=Not Assessed/NA 4=Minimal Assistance 1=Total Assistance 5=Supervision or Setup 2=Maximal Assistance 6=Modified [place] 3=Moderate Assistance 7=Complete IndependenceIRFPAI Quality Coding Scale 6 Independent with activity with or without an assistive device 5 Patient requires set up or clean up by helper. Patient completes activity by themselves 4 Supervision or touching assist (CGA). [place] provide cues , steadying assist 3 The helper provides less than half the effort to complete the activity 2 The helper provides more than half the effort to complete the activity 1 Dependent. The helper does all the effort to complete an activity 7 Patient refused to complete or attempt activity 9 The patient did not perform the activity before the current illness or injury 88 Not attempted due to Medical conditions or safety concerns Transfers (B, C, W/C) (FIM): 6 Scootin Rollin Supine to/from Sit: 6 Sit to/from Stand: 6 Bed to/from Chair: 6 Gait Training Does the Patient Walk?: Yes Gait (FIM): 6 Distance (FIM): 3=150 ft (x2) Gait Level of Assist: 6 Gait Persons Needed: 0 Gait Assistive Device: FWW progressed to up adlib, no trina LOB, demonstrates safe practices routinely Stair Training Stair Training: Handrails/: 1 handrail Stairs (FIM): 5 #of Steps: 4 Stairs: Pattern: Step to Level of Assist: 5 household exception , uses one rail like home situation Exercises Supine Ex: Bridging, Ankle pumps, Quad Set, Rolling, Glut sets, Heel Slides, Short Arc Quads, Scooting, Straight leg raise, Hip abd/add Supine Reps: 15 NuStep Minutes: 12 NuStep Workload: 4 Assessment Current Status: Good Progress advanced to up ad estefani PT Short Term Goals Short Term Goals Time Frame: Sep 19, 2016 Transfers (B,C,W/C) (FIM): 4 (met 09/14/16) Gait (FIM): 4 (met 08/2116) Stairs (FIM): 2 # of Steps: 4 Stairs Level of Assist: 4 PT Intermediate Goals Intermediate Goals PT Intermediate Goals Time Frame: Oct 03, 2016 Transfers (B,C,W/C) (FIM): 6 Sit to Lying (QC): 6 Lying-Sitting on Side/Bed(QC): 6 Sit to Stand (QC): 6 Rollin Roll Left to Right (QC): 6 Chair/Jhk-sb-Vnlvn Xfer(QC): 6 Car Transfer (QC): 5 Does the Patient Walk: Yes Gait (FIM): 6 Gait distance (FIM): 3=150 ft Walk 10 feet (QC): 6 Walk 10ft-Uneven Surface(QC): 6 Walk 50ft with 2 Turns (QC): 6 Walk 150 ft (QC): 6 Gait Level of Assist: 6 Gait Assistive Device: FWW Does the Pt use WC or Scooter?: No Stairs (FIM): 5 # of Steps: 8 1 Step (curb) (QC): 6 4 Steps (QC): 6 12 Steps (QC): 88 Stairs Level Of Assist: 6 Picking up an Object (QC): 5 PT Plan Treatment/Plan Treatment Plan: Continue Plan of Care Treatment Plan: Bed Mobility, Education, Functional Activity Laurence, Functional Strength, Group Therapy, Gait, Safety, Therapeutic Exercise, Transfers Treatment Duration: Oct 03, 2016 Visits Per Week: 10-15 Minutes/Day (M-F): 60-90 Minutes/Day (Sat/Hankins): prn Safety Risks/Education Patient Education: Gait Training, Transfer Techniques, Steps, Issued Written HEP, Correct Positioning, Disease Process, Safety Issues Teaching Recipient: Patient Teaching Methods: Demonstration, Discussion Response to Teaching: Verbalize Understanding, Return Demonstration, Reinforcement Needed Time/GCodes Time In: 1100 Time Out: 1200 Total Billed Treatment Time: 60 Total Billed Treatment 1,FA20m,GT15m,EX25m G Codes Necessary: No BHAVYA LOPEZ WEARING [employer]ER Sep 20, 2016 12:10
--- NOTE | 2016-09-20 15:06 | Therapy Group Daily Note ---
Therapy Daily Group Note Patient Education Topic Other List Below (ARU description/expectations, arthritis and pain) Exercises LE Seated Exercise, UE Exercise Other/Notes Pt ambulated with FWW to OT/PT group. Pt actively participated in group. Group consisted of introductions (name, place living, what do you do to exercise ), socialization, ARU description and expectations, arthritis education, education on how exercise can alleviate pain, UE/LE seated exercises and recall/ memory activity. Pt was able to contribute to discussions for arthritis and pain. Pt tolerated UE/LE seated exercises well. Pt was able to complete the recall/memory activity without difficulty. After therapy, pt ambulated with FWW to room and sat in room with call light/phone in reach. All needs met in room. Start Time: 13:00 Stop Time: 14:30 Total Billed Treatment Time: 90 Total Billed Treatment 1-GRP LEIA NESBITT Sep 20, 2016 15:06
[2016-09-20 18:23] VITALS: BP 116/66
[2016-09-20] MEDS: ATORVASTATIN 20 MG (LIPITOR) TABLET PO SCH (21:16)
[2016-09-21 06:00] VITALS: BP 155/79
[2016-09-21] MEDS: DOCUSATE SODIUM 100 MG (COLACE) CAP PO SCH ×2 (08:49→21:15)
[2016-09-21] MEDS: CLOPIDOGREL 75 MG (PLAVIX) TABLET PO SCH (08:49)
[2016-09-21] MEDS: ASPIRIN E.C. 81 MG (ECOTRIN) TAB PO SCH (08:49)
[2016-09-21] MEDS: HYDROCHLOROTHIAZIDE 25 MG (HCTZ) TAB PO SCH (08:49)
[2016-09-21] MEDS: NAPROXEN 250 MG (NAPROSYN) TABLET PO SCH (08:49)
[2016-09-21] MEDS: lisINopril 10 MG (PRINIVIL) TAB PO SCH (08:49)
[2016-09-21] MEDS: meTOprolol TARTRATE 50 MG (LOPRESSOR) TAB PO SCH ×2 (08:49→21:15)
--- NOTE | 2016-09-21 12:19 | Physical Therapy Daily Note ---
PT Daily Note-Current Subjective Pt eager to walk so that she can go home soon. Transfers Functional [place] Measure 0=Not Assessed/NA 4=Minimal Assistance 1=Total Assistance 5=Supervision or Setup 2=Maximal Assistance 6=Modified [place] 3=Moderate Assistance 7=Complete IndependenceIRFPAI Quality Coding Scale 6 Independent with activity with or without an assistive device 5 Patient requires set up or clean up by helper. Patient completes activity by themselves 4 Supervision or touching assist (CGA). [place] provide cues , steadying assist 3 The helper provides less than half the effort to complete the activity 2 The helper provides more than half the effort to complete the activity 1 Dependent. The helper does all the effort to complete an activity 7 Patient refused to complete or attempt activity 9 The patient did not perform the activity before the current illness or injury 88 Not attempted due to Medical conditions or safety concerns Transfers (B, C, W/C) (FIM): 6 Sit to/from Stand: 6 Bed to/from Chair: 6 Gait Training Distance: 400ft Gait Level of Assist: 6 Gait Persons Needed: 1 Gait Assistive Device: FWW Assessment Good stability, safe turns, and good transfers. PT Short Term Goals Short Term Goals Time Frame: Sep 19, 2016 Transfers (B,C,W/C) (FIM): 4 (met 09/14/16) Gait (FIM): 4 (met 08/2116) Stairs (FIM): 2 # of Steps: 4 Stairs Level of Assist: 4 PT Systems Integration Engineer Goals Usp Goals PT Usp Goals Time Frame: Oct 03, 2016 Transfers (B,C,W/C) (FIM): 6 Sit to Lying (QC): 6 Lying-Sitting on Side/Bed(QC): 6 Sit to Stand (QC): 6 Rollin Roll Left to Right (QC): 6 Chair/Wbt-ek-Pkqdv Xfer(QC): 6 Car Transfer (QC): 5 Does the Patient Walk: Yes Gait (FIM): 6 Gait distance (FIM): 3=150 ft Walk 10 feet (QC): 6 Walk 10ft-Uneven Surface(QC): 6 Walk 50ft with 2 Turns (QC): 6 Walk 150 ft (QC): 6 Gait Level of Assist: 6 Gait Assistive Device: FWW Does the Pt use WC or Scooter?: No Stairs (FIM): 5 # of Steps: 8 1 Step (curb) (QC): 6 4 Steps (QC): 6 12 Steps (QC): 88 Stairs Level Of Assist: 6 Picking up an Object (QC): 5 PT Plan Treatment/Plan Treatment Plan: Continue Plan of Care Treatment Plan: Bed Mobility, Education, Functional Activity Laurence, Functional Strength, Group Therapy, Gait, Safety, Therapeutic Exercise, Transfers Treatment Duration: Oct 03, 2016 Visits Per Week: 10-15 Minutes/Day (M-F): 60-90 Minutes/Day (Sat/Hankins): prn Time/GCodes Time In: 909 Time Out: 924 Total Billed Treatment Time: 15 Total Billed Treatment 1, gt 15 LOTUS VALDEZ PT Sep 21, 2016 12:19
[2016-09-21 18:16] VITALS: BP 153/72
[2016-09-21] MEDS: ATORVASTATIN 20 MG (LIPITOR) TABLET PO SCH (21:15)
[2016-09-22 06:00] VITALS: BP 157/73
[2016-09-22] MEDS: ASPIRIN E.C. 81 MG (ECOTRIN) TAB PO SCH (08:28)
[2016-09-22] MEDS: DOCUSATE SODIUM 100 MG (COLACE) CAP PO SCH ×2 (08:28→20:00)
[2016-09-22] MEDS: HYDROCHLOROTHIAZIDE 25 MG (HCTZ) TAB PO SCH (08:28)
[2016-09-22] MEDS: CLOPIDOGREL 75 MG (PLAVIX) TABLET PO SCH (08:28)
[2016-09-22] MEDS: NAPROXEN 250 MG (NAPROSYN) TABLET PO SCH (08:28)
[2016-09-22] MEDS: lisINopril 10 MG (PRINIVIL) TAB PO SCH (08:28)
[2016-09-22] MEDS: meTOprolol TARTRATE 50 MG (LOPRESSOR) TAB PO SCH ×2 (08:28→20:00)
[2016-09-22 18:00] VITALS: BP 127/67
[2016-09-22] MEDS: ATORVASTATIN 20 MG (LIPITOR) TABLET PO SCH (20:00)
[2016-09-23 05:51] VITALS: BP 118/64
[2016-09-23 07:50] VITALS: BP 157/62
[2016-09-23] MEDS: CLOPIDOGREL 75 MG (PLAVIX) TABLET PO SCH (07:55)
[2016-09-23] MEDS: DOCUSATE SODIUM 100 MG (COLACE) CAP PO SCH ×2 (07:56→20:02)
[2016-09-23] MEDS: ASPIRIN E.C. 81 MG (ECOTRIN) TAB PO SCH (07:56)
[2016-09-23] MEDS: HYDROCHLOROTHIAZIDE 25 MG (HCTZ) TAB PO SCH (07:56)
[2016-09-23] MEDS: meTOprolol TARTRATE 50 MG (LOPRESSOR) TAB PO SCH ×2 (07:56→20:02)
[2016-09-23] MEDS: NAPROXEN 250 MG (NAPROSYN) TABLET PO SCH (07:56)
[2016-09-23] MEDS: lisINopril 10 MG (PRINIVIL) TAB PO SCH (07:56)
--- NOTE | 2016-09-23 08:33 | Cardiology Progress Note ---
Subjective Subjective/Events-last exam Patient sitting up in chair. No new complaints. Denies any CP or dyspnea. Review of Systems General: No Night Sweats, No Fatigue, No Malaise HEENT: No Visual Changes, No Dysphasia, No Sore Throat Pulmonary: No Dyspnea, No Cough Cardiovascular: No: Chest Pain, Orthopnea, Palpitations Gastrointestinal: No: Abdominal Pain, Nausea, Vomiting Genitourinary: No Dysuria, No Frequency Musculoskeletal: No: back pain, neck pain Neurological: No: Change in speech, Confusion, Numbness, Weakness Objective-Cardiology Exam Last Set of Vital Signs Vital Signs 09/23/16 09/23/16 05:51 07:50 Temp 97.8 Pulse 79 Resp 16 B/P 157/62 Pulse Ox 98 O2 Delivery Room Air Capillary Refill : I&O Intake and Output 09/23/16 00:00 Intake Total 1080 ml Balance 1080 ml Intake Oral 1080 ml # Voids 8 # Bowel Movements 1 General: Alert, Oriented X3, Cooperative, No Acute Distress HEENT: Atraumatic, PERRLA, EOMI, Mucous Memb Moist/[place] Neck: Supple, No JVD Lungs: Clear to Auscultation Heart: Regular Rate, Normal S1, Normal S2 Abdomen: Normal Bowel Sounds, Soft, No Tenderness Extremities: No Clubbing, No Cyanosis, No Edema Skin: No Rashes, No Breakdown Neuro: Normal Speech, Other (left side weakness in the lower extremity more than the upper extremity, mild facial droop) A/P-Cardiology Admission Diagnosis Acute CVA Hypertension Hyperlipidemia Sinus tachycardia Assessment/Plan Acute CVA with left sided weakness- CT Head with 3cm calcified meningioma, otherwise negative, given tPA in ER. MRI brain revealed right thalmus 1.5cm acute infarct. Continues to have left sided facial drooping with left sided weakness. On Plavix and ASA. Carotid US revealed nonobstructive disease bilaterally. echocardiogram showed normal left ventricular size and systolic function, ejection fraction 60 percent, left atrium is in the upper normal limit in size. Pulmonary artery pressure is normal. HETAL didn't show any abnormality, continue on current treatment, no arrhythmia detected, status post Reveal implant, continue to monitor Sinus tachycardia with PVC's, better, continue to monitor heart rate and blood pressure Hypertension, controlled. Continue to monitor BP/HR> Hyperlipidemia, on Lipitor. Monitor lipids Hx meningioma- CT head revealed 3cm calcified meningioma. Clinical Quality Measures DVT/VTE Risk/Contraindication: Risk Factor Score Per Nursin RFS Level Per Nursing on Admit: 4+=Very High CRISS IBARRA Sep 23, 2016 08:33
--- NOTE | 2016-09-23 09:27 | Physical Therapy Daily Note ---
PT Daily Note-Current Subjective Pt. agrees to Rx, States she has had a very good weekend and has felt safe being up ad estefani. States her son will take her home tomorrow in a van. Discussed car TRF again. Pain Numeric Pain Scale: 0-No Pain Mental Status Patient Orientation: Normal For Age Transfers Functional [place] Measure 0=Not Assessed/NA 4=Minimal Assistance 1=Total Assistance 5=Supervision or Setup 2=Maximal Assistance 6=Modified [place] 3=Moderate Assistance 7=Complete IndependenceIRFPAI Quality Coding Scale 6 Independent with activity with or without an assistive device 5 Patient requires set up or clean up by helper. Patient completes activity by themselves 4 Supervision or touching assist (CGA). [place] provide cues , steadying assist 3 The helper provides less than half the effort to complete the activity 2 The helper provides more than half the effort to complete the activity 1 Dependent. The helper does all the effort to complete an activity 7 Patient refused to complete or attempt activity 9 The patient did not perform the activity before the current illness or injury 88 Not attempted due to Medical conditions or safety concerns Transfers (B, C, W/C) (FIM): 6 Scootin Rollin Roll Left to Right (QC): 6 Supine to/from Sit: 6 Sit to/from Stand: 6 Sit to Lying (QC): 6 Sit to Stand (QC): 6 Chair/Pgp-oa-Ahwls Xfer(QC): 6 Bed to/from Chair: 6 Gait Training Does the Patient Walk?: Yes Gait (FIM): 6 Distance (FIM): 3=150 ft (200x3) Walk 10 feet (QC): 6 Walk 50 ft with 2 Turns(QC): 6 Walk 150 ft (QC): 6 Walking 10ft/uneven surface-QC: 6 (carpet and over transitions) Gait Level of Assist: 6 Gait Persons Needed: 1 Gait Assistive Device: FWW Stair Training Stair Training: Handrails/: 1 handrail (like home situation) Stairs (FIM): 5 #of Steps: 5 1 Step (curb) (QC): 5 4 Steps (QC): 5 Stairs: Pattern: Step to Level of Assist: 5 household exception Exercises Supine Ex: Bridging, Ankle pumps, Quad Set, Rolling, Glut sets, Heel Slides, Short Arc Quads, Scooting, Straight leg raise, Hip abd/add Supine Reps: 15 NuStep Minutes: 10 NuStep Workload: 4 Assessment Current Status: Excellent Progress meets goals PT Short Term Goals Short Term Goals Time Frame: Sep 19, 2016 Transfers (B,C,W/C) (FIM): 4 (met 09/14/16) Gait (FIM): 4 (met 08/2116) Stairs (FIM): 2 # of Steps: 4 Stairs Level of Assist: 4 PT Usp Goals Usp Goals PT Usp Goals Time Frame: Oct 03, 2016 Transfers (B,C,W/C) (FIM): 6 Sit to Lying (QC): 6 Lying-Sitting on Side/Bed(QC): 6 Sit to Stand (QC): 6 Rollin Roll Left to Right (QC): 6 Chair/Tkw-yh-Qxllx Xfer(QC): 6 Car Transfer (QC): 5 Does the Patient Walk: Yes Gait (FIM): 6 Gait distance (FIM): 3=150 ft Walk 10 feet (QC): 6 Walk 10ft-Uneven Surface(QC): 6 Walk 50ft with 2 Turns (QC): 6 Walk 150 ft (QC): 6 Gait Level of Assist: 6 Gait Assistive Device: FWW Does the Pt use WC or Scooter?: No Stairs (FIM): 5 # of Steps: 8 1 Step (curb) (QC): 6 4 Steps (QC): 6 12 Steps (QC): 88 Stairs Level Of Assist: 6 Picking up an Object (QC): 5 PT Plan Treatment/Plan Treatment Plan: Continue Plan of Care Treatment Plan: Bed Mobility, Education, Functional Activity Laurence, Functional Strength, Group Therapy, Gait, Safety, Therapeutic Exercise, Transfers Treatment Duration: Oct 03, 2016 Visits Per Week: 10-15 Minutes/Day (M-F): 60-90 Minutes/Day (Sat/Hankins): prn Safety Risks/Education Patient Education: Gait Training, Transfer Techniques, Steps, Issued Written HEP Teaching Recipient: Patient Teaching Methods: Demonstration, Discussion Response to Teaching: Verbalize Understanding, Return Demonstration, Reinforcement Needed Time/GCodes Time In: 830 Time Out: 930 Total Billed Treatment Time: 60 Total Billed Treatment 1,GT20m,FA25m,EX15m G Codes Necessary: BHAVYA Bolanos [employer]S Sep 23, 2016 09:27
[2016-09-23] MEDS ORDERED: FLU TRIvalent (5 YOA+) 2016-17 (AFLURIA) 0.5 ML IM ONE (10:15)
--- NOTE | 2016-09-23 10:56 | Cardiology Progress Note ---
Subjective Subjective/Events-last exam patient is sitting in a chair, feeling better, improving. Denied any chest pain , we discussed antiplatelet therapy, she has history of nosebleed. I recommended continuing with aspirin and Plavix and monitoring any signs for bleeding Review of Systems General: No Chills, No Night Sweats, No Fatigue, No Malaise, No Appetite, No Other HEENT: No Head Aches, No Visual Changes, No Eye Pain, No Ear Pain, No Dysphasia , No Sinus Congestion, No Post Nasal Drip, No Sore Throat, No Other Pulmonary: No Dyspnea, No Cough, No Pleuritic Chest Pain, No Other Cardiovascular: No: Chest Pain, Edema, Lt Headedness, Orthopnea, Other, Palpitations, Paroxysmal Noc. Dyspnea Objective-Cardiology Exam Last Set of Vital Signs Vital Signs 09/23/16 09/23/16 09/23/16 05:51 07:50 08:00 Temp 97.8 Pulse 79 Resp 16 B/P 157/62 Pulse Ox 98 O2 Delivery Room Air Capillary Refill : I&O Intake and Output 09/23/16 00:00 Intake Total 1080 ml Balance 1080 ml Intake Oral 1080 ml # Voids 8 # Bowel Movements 1 General: Alert, Oriented X3, Cooperative, No Acute Distress HEENT: Atraumatic, PERRLA, EOMI, Mucous Memb Moist/[place] Neck: Supple, No JVD Lungs: Clear to Auscultation Heart: Regular Rate, Normal S1, Normal S2 Abdomen: Normal Bowel Sounds, Soft, No Tenderness Extremities: No Clubbing, No Cyanosis, No Edema Skin: No Rashes, No Breakdown Neuro: Normal Speech, Other (left side weakness in the lower extremity more than the upper extremity, mild facial droop) A/P-Cardiology Admission Diagnosis Acute CVA Hypertension Hyperlipidemia Sinus tachycardia Assessment/Plan Acute CVA with left sided weakness- CT Head with 3cm calcified meningioma, otherwise negative, given tPA in ER. MRI brain revealed right thalamus 1.5cm acute infarct. Continues to have left sided facial drooping with left sided weakness. On Plavix and ASA. Carotid US revealed nonobstructive disease bilaterally. echocardiogram showed normal left ventricular size and systolic function, ejection fraction 60 percent, left atrium is in the upper normal limit in size. Pulmonary artery pressure is normal. HETAL didn't show any abnormality, continue on current treatment, no arrhythmia detected, status post Reveal implant, continue to monitor I will evaluate [id number] (Plavix metabolism test) Sinus tachycardia with PVC's, better, continue to monitor heart rate and blood pressure Hypertension, controlled. Continue to monitor BP/HR> Hyperlipidemia, on Lipitor. Monitor lipids Hx meningioma- CT head revealed 3cm calcified meningioma. Clinical Quality Measures DVT/VTE Risk/Contraindication: Risk Factor Score Per Nursin RFS Level Per Nursing on Admit: 4+=Very High MECHELLE BILLY MD Sep 23, 2016 10:56
--- NOTE | 2016-09-23 11:21 | Occupational Ther Daily Note ---
OT Current Status-Daily Note Subjective Pt seen in room, up in chair, agreeable to OT. No pain mentioned. Appearance Alert, cooperative Mental Status/Objective Functional [place] Measure 0=Not Assessed/NA 4=Minimal Assistance 1=Total Assistance 5=Supervision or Setup 2=Maximal Assistance 6=Modified [place] 3=Moderate Assistance 7=Complete [place] IV has been removed. Pt has dressing covered in plastic for internal nurse monitoring ADL-Treatment Pt is up ad estefani in room with FWW. Moves deliberately and carefully. Functional [place] Measure 0=Not Assessed/NA 4=Minimal Assistance 1=Total Assistance 5=Supervision or Setup 2=Maximal Assistance 6=Modified [place] 3=Moderate Assistance 7=Complete IndependenceIRFPAI Quality Coding Scale 6 Independent with activity with or without an assistive device 5 Patient requires set up or clean up by helper. Patient completes activity by themselves 4 Supervision or touching assist (CGA). [place] provide cues , steadying assist 3 The helper provides less than half the effort to complete the activity 2 The helper provides more than half the effort to complete the activity 1 Dependent. The helper does all the effort to complete an activity 7 Patient refused to complete or attempt activity 9 The patient did not perform the activity before the current illness or injury 88 Not attempted due to Medical conditions or safety concerns Eating (FIM): 6 (Pt is able to open all packages and cut food. Feeds herself. Takes a little extra time trying to use L hand) Eating (QC): 6 Grooming (FIM): 6 (Brushed teeth at sink. Washed face and hands in shower. Combed hair and curled it at sink. FWW for balance) Oral Hygiene (QC): 6 Toileting Hygiene (QC): 6 Bathing (FIM): 6 (Turned water on and off and retrieved towels from bar. Washed and dried all parts, sitting on shower bench. Grab bars, hand held shower. ) Upper Body (FIM): 6 (Retrieved clean clothes and put dirty ones away. Doffed and donned clothing, including bra, without assistance. FWW for balance) Upper Body Dressing (QC): 6 Lower Body Dressing (FIM): 6 (Doffed and donned clothing without help, including socks and shoes. Retrieved clean clothing and put dirty ones away. FWW for balance) Lower Body Dressing (QC): 6 On/Off Footwear (QC): 6 Toileting (FIM): 6 (Managed clothing and hygiene without help. Easier to get up off toilet with BSC over toilet but she can manage. FWW, tall toilet, grab bar.) Transfers (B, C, W/C) (FIM): 6 (Pt is up ad estefani in room, Got in and out of chairs with arms without assistance, FWW) Toilet/Commode Transfer (FIM): 6 (Tall toielt, grab bars, FWW. Easier to get off toilet if she has BSC over toilet but she can manage) Toilet Transfer (QC): 6 (Tall toilet, grab bars, FWW. Has BSC over toilet in room) Shower Transfer(FIM): 5 (Two trials to get off shower bench (LOB and sat back down). grab bars, FWW. Pt educ alternate shower technique) Shower/Bathe Self (QC): 6 Pt stated that she will use her walk-in shower at home and has a shower chair. She also indicated that she will have someone with her when she transfers in/ out of shower Other Treatment Pt did 10 reps bilat UE exercise with yellow (gentle resistance) theraband. Pt education on different exercises. Needed some cues to straighten L elbow and use L shoulder, due to weakness. Education OT Patient Education: Exercise program, Modified ADL techniques, Progress toward Goal/Update tx plan, Safety issues, Transfer techniques, Use of adapted equipment Teaching Recipient: Patient Teaching Methods: Demonstration, Discussion Response to Teaching: Return Demonstration, Reinforcement Needed OT Short Term Goals Short Term Goals Time Frame: Sep 19, 2016 Grooming(FIM): 5 Upper Body Dressing(FIM): 5 Lower Body Dressing(FIM): 5 Toileting(FIM): 5 Transfers (B,C,W/C) (FIM): 4 (met 09/14/16) Toilet/Commode Transfer(FIM): 5 Additional Short Term Goals: 2-Verbalize Understanding, 3-ImproveStrength/Laurence 1=Demonstrate adherence to instructed precautions during ADL tasks. 2=Patient will verbalize/demonstrate understanding of assistive devices/ modifications for ADL. 3=Patient will improve strength/tolerance for activity to enable patient to perform ADL's. OT Wood Patternmaker Apprentice Goals Wood Patternmaker Apprentice Goals Time Frame: Oct 04, 2016 Eating (FIM): 6 Eating (QC): 6 Oral Hygiene (QC): 6 Grooming(FIM): 6 Bathing(FIM): 6 Shower/Bathe Self (QC): 6 Upper Body Dressing(FIM): 6 Upper Body Dressing (QC): 6 Lower Body Dressing(FIM): 6 Lower Body Dressing (QC): 6 On/Off Footwear (QC): 6 Toileting(FIM): 6 Toileting Hygiene (QC): 6 Toilet/Commode Transfer(FIM): 6 Toilet/Commode Transfer (QC): 6 Shower Transfer(FIM): 6 Comprehension(FIM): 6 Expression (FIM): 7 Social Interaction(FIM): 6 Problem Solving(FIM): 6 Memory(FIM): 6 Increase bilat UE strength to 5/5 Additional Goals: 2-Verbalize Understanding, 3-ImproveStrength/Laurence 1=Demonstrate adherence to instructed precautions during ADL tasks. 2=Patient will verbalize/demonstrate understanding of assistive devices/ modifications for ADL. 3=Patient will improve strength/tolerance for activity to enable patient to perform ADL's. OT Education/Plan Problem List/Assessment Pt would benefit from skilled OT to increase her independence in basis self care to allow her to return home to live safely with after CVA with L sided weakness and incoordination, decr functional mobility with all impact her self care abilities Discharge Recommendations Plan/Recommendations: Continue POC Treatment Plan/Plan of Care Patient would benefit from OT for education, treatment and training to promote independence in ADL's, mobility, safety and/or upper extremity function for ADL' s. Plan of Care: ADL Retraining, Functional Mobility, Group Exercise/Act as Ind ( education, exercise, activity tolerance, coordination, functional activities, balance), UE Funct Exercise/Act, UE Neuromus Re-Ed/Coord Treatment Duration: Oct 04, 2016 Visits Per Week: 10-11 Minutes/Day (M-F): 75-90 Minutes/Day (Sat/Hankins): 75-90 Rehab Potential: Good Time/GCodes Start Time: 10:00 Stop Time: 11:00 Total Time Billed (hr/min): 60 Billed Treatment Time visit, 50 minutes ADL, 10 minutes exercise CAMPBELL CHOPRA OT Sep 23, 2016 11:21
--- NOTE | 2016-09-23 11:50 | Speech Therapy Daily Note ---
Speech Daily Progress Note Subjective The patient was seated upright in recliner upon entrance. The patient greeted the clinician appropriately and agreed to participate in the speech therapy session on this date. Objective Oral Motor Exercises: Oral motor exercises were continued on this date. The patient demonstrated high accuracy with the exercises, displaying 90% accuracy, independently. Assessment Assessment Current Status: Excellent Progress Treatment Plan Continue Plan of Care Communication Comprehension: 6 Expression: 6 Social Cognition Social Interaction: 6 Problem Solvin Memory: 6 Speech Short Term Goals Short Term Goals Short Term Goals 1. The patient will demonstrate oral motor exercises with 90% accuracy, independently. Time Frame-STG: One Week Speech Engineer Goals Engineer Goals 1. The patient will demonstrate increased articulatory precision (as independently reported by patient) for improved verbal communication. Time Frame: Two Weeks Comprehension: 6 Expression: 7 Social Interaction: 6 Problem Solvin Memory: 6 Speech-Plan Treatment Plan Speech Therapy Treatment Plan: Continue Plan of Care Treatment Duration: Sep 27, 2016 # of days/week Three Visits Per Week: Three Minutes/Day (M-F): 30-45 Rehab Potential: Good Safety Risks/Education Teaching Recipient: Patient Teaching Methods: Demonstration, Handout, Discussion Response to Teaching: Return Demonstration Education Topics Provided: Oral Motor Exercises Time Speech Therapy Time In: 09:30 Speech Therapy Time Out: 10:00 Total Billed Time: 30 Billed Treatment Time 1, DORA LOBO Sep 23, 2016 11:50
--- NOTE | 2016-09-23 13:42 | Physical Therapy Daily Note ---
PT Daily Note-Current Subjective Agrees to Rx Transfers Functional [place] Measure 0=Not Assessed/NA 4=Minimal Assistance 1=Total Assistance 5=Supervision or Setup 2=Maximal Assistance 6=Modified [place] 3=Moderate Assistance 7=Complete IndependenceIRFPAI Quality Coding Scale 6 Independent with activity with or without an assistive device 5 Patient requires set up or clean up by helper. Patient completes activity by themselves 4 Supervision or touching assist (CGA). [place] provide cues , steadying assist 3 The helper provides less than half the effort to complete the activity 2 The helper provides more than half the effort to complete the activity 1 Dependent. The helper does all the effort to complete an activity 7 Patient refused to complete or attempt activity 9 The patient did not perform the activity before the current illness or injury 88 Not attempted due to Medical conditions or safety concerns All TRFs Mod I Gait Training all gait up ad estefani, 250 ft observed with FWW no LOB Exercises Standing: Hip Abduction, Hamstring curls, Heel/toe raises, Marching, Mini squats, Sit to Stand Standing Reps: 15 Assessment Current Status: Good Progress PT Short Term Goals Short Term Goals Time Frame: Sep 19, 2016 Transfers (B,C,W/C) (FIM): 4 (met 09/14/16) Gait (FIM): 4 (met 08/2116) Stairs (FIM): 2 # of Steps: 4 Stairs Level of Assist: 4 PT Supervisor Home Restoration Service Goals Mcfp Goals PT Mcfp Goals Time Frame: Oct 03, 2016 Transfers (B,C,W/C) (FIM): 6 Sit to Lying (QC): 6 Lying-Sitting on Side/Bed(QC): 6 Sit to Stand (QC): 6 Rollin Roll Left to Right (QC): 6 Chair/Pxv-[id number]-Bqzaw Xfer(QC): 6 Car Transfer (QC): 5 Does the Patient Walk: Yes Gait (FIM): 6 Gait distance (FIM): 3=150 ft Walk 10 feet (QC): 6 Walk 10ft-Uneven Surface(QC): 6 Walk 50ft with 2 Turns (QC): 6 Walk 150 ft (QC): 6 Gait Level of Assist: 6 Gait Assistive Device: FWW Does the Pt use WC or Scooter?: No Stairs (FIM): 5 # of Steps: 8 1 Step (curb) (QC): 6 4 Steps (QC): 6 12 Steps (QC): 88 Stairs Level Of Assist: 6 Picking up an Object (QC): 5 PT Plan Treatment/Plan Treatment Plan: Continue Plan of Care Treatment Plan: Bed Mobility, Education, Functional Activity Laurence, Functional Strength, Group Therapy, Gait, Safety, Therapeutic Exercise, Transfers Treatment Duration: Oct 03, 2016 Visits Per Week: 10-15 Minutes/Day (M-F): 60-90 Minutes/Day (Sat/Hankins): prn Safety Risks/Education Patient Education: Gait Training, Transfer Techniques, Issued Written HEP Teaching Recipient: Patient Teaching Methods: Demonstration, Discussion Response to Teaching: Verbalize Understanding, Return Demonstration Time/GCodes Time In: 1320 Time Out: 1335 Total Billed Treatment Time: 15 Total Billed Treatment 1,EX15m G Codes Necessary: Yes BHAVYA LOPEZ FARM MARKETER Sep 23, 2016 13:42
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
[2016-09-23 18:17] VITALS: BP 145/77
[2016-09-23] MEDS: ATORVASTATIN 20 MG (LIPITOR) TABLET PO SCH (20:02)
--- NOTE | 2016-09-23 20:05 | PM & R (SOAP) Progress Note ---
Subjective Subjective/Events-last exam Patient was seen in her room this evening Appreciate therapy notes as well as Dr Hatch notes and orderes. Blood pressure better controlled Objective Exam Last Set of Vital Signs Vital Signs Date Time Temp Pulse Resp B/P Pulse Ox O2 Delivery O2 Flow Rate FiO2 09/23/16 18:17 97.5 90 16 145/77 98 Room Air Capillary Refill : I&O Intake and Output 09/23/16 00:00 Intake Total 1080 ml Balance 1080 ml Intake Oral 1080 ml # Voids 8 # Bowel Movements 1 General: Alert, Oriented X3, Cooperative, No Acute Distress HEENT: Atraumatic, PERRLA, EOMI, Mucous Memb Moist/[place] Neck: Supple, No JVD Lungs: Clear to Auscultation Heart: Regular Rate, Normal S1, Normal S2 Abdomen: Normal Bowel Sounds, Soft, No Tenderness Extremities: No Clubbing, No Cyanosis, No Edema Skin: No Rashes, No Breakdown Neuro: Normal Speech, Other (left side weakness in the lower extremity more than the upper extremity, mild facial droop) Results Lab Laboratory Tests 09/23/16 12:05: Assessment/Plan Assessment 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
[2016-09-24 05:16] VITALS: BP 152/78
--- NOTE | 2016-09-24 08:13 | Therapy Team Discharge Summary ---
Therapy Discharge Summary Discharge Recommendations Date of Discharge Speech-Language Pathology The patient was recently admitted to [facility] following a CVA. Upon admission, the patient demonstrated mild dysarthria characterized by left labial weakness. Skilled speech therapy focused on oral motor exercises to improve intelligibility. The patient met all speech therapy goals placed. Skilled speech therapy will cease at this time. Additionally speech services are not warranted post discharge. PT Alf Goals Alf Goals PT Alf Goals Time Frame: Oct 03, 2016 Transfers (B,C,W/C) (FIM): 6 Roll Left to Right (QC): 6 Sit to Lying (QC): 6 Lying-Sitting on Side/Bed(QC): 6 Sit to Stand (QC): 6 Chair/Yis-xe-Kwpbn Xfer(QC): 6 Car Transfer (QC): 5 Does the Patient Walk: Yes Gait (FIM): 6 Gait distance (FIM): 3=150 ft Walk 10 feet (QC): 6 Walk 10ft-Uneven Surface(QC): 6 Walk 50ft with 2 Turns (QC): 6 Walk 150 ft (QC): 6 Gait Level of Assist: 6 Gait Assistive Device: FWW Does the Pt use WC or Scooter?: No Stairs (FIM): 5 # of Steps: 8 1 Step (curb) (QC): 6 4 Steps (QC): 6 12 Steps (QC): 88 Stairs Level Of Assist: 6 Picking up an Object (QC): 5 OT Alf Goals Aluminum Container Tester Goals Time Frame: Oct 04, 2016 Eating (FIM): 6 Eating (QC): 6 Oral Hygiene (QC): 6 Grooming(FIM): 6 Bathing(FIM): 6 Shower/Bathe Self (QC): 6 Upper Body Dressing(FIM): 6 Upper Body Dressing (QC): 6 Lower Body Dressing(FIM): 6 Lower Body Dressing (QC): 6 On/Off Footwear (QC): 6 Toileting(FIM): 6 Toileting Hygiene (QC): 6 Toilet/Commode Transfer(FIM): 6 Toilet/Commode Transfer (QC): 6 Shower Transfer(FIM): 6 Comprehension(FIM): 6 Expression (FIM): 7 Social Interaction(FIM): 6 Problem Solving(FIM): 6 Memory(FIM): 6 Increase bilat UE strength to 5/5 Additional Goals: 2-Verbalize Understanding, 3-ImproveStrength/Laurence 1=Demonstrate adherence to instructed precautions during ADL tasks. 2=Patient will verbalize/demonstrate understanding of assistive devices/ modifications for ADL. 3=Patient will improve strength/tolerance for activity to enable patient to perform ADL's. Speech Aluminum Container Tester Goals Alf Goals 1. The patient will demonstrate increased articulatory precision (as independently reported by patient) for improved verbal communication. Time Frame: Two Weeks Comprehension: 6 (MET) Expression: 6 (MET) Social Interaction: 6 (MET) Problem Solvin (MET) Memory: 6 (MET) DORA CAGE Sep 24, 2016 08:13
--- NOTE | 2016-09-24 08:16 | Cardiology Progress Note ---
Subjective Subjective/Events-last exam Patient is sitting up in chair. Being discharged home today. Denies any CP or palpitations. Objective-Cardiology Exam Last Set of Vital Signs Vital Signs 09/24/16 09/24/16 09/24/16 05:16 09:00 13:04 Temp 97.8 Pulse 71 Resp 16 B/P 152/78 Pulse Ox 98 O2 Delivery Room Air Capillary Refill : I&O Intake and Output 09/24/16 00:00 Intake Total 930 ml Balance 930 ml Intake Oral 930 ml # Voids 12 # Bowel Movements 6 General: Alert, Oriented X3, Cooperative, No Acute Distress HEENT: Atraumatic, PERRLA, EOMI, Mucous Memb Moist/[place] Neck: Supple, No JVD Lungs: Clear to Auscultation Heart: Regular Rate, Normal S1, Normal S2 Abdomen: Normal Bowel Sounds, Soft, No Tenderness Extremities: No Clubbing, No Cyanosis, No Edema Skin: No Rashes, No Breakdown Neuro: Normal Speech, Other (left side weakness in the lower extremity more than the upper extremity, mild facial droop) A/P-Cardiology Admission Diagnosis Acute CVA Hypertension Hyperlipidemia Sinus tachycardia Assessment/Plan Acute CVA with left sided weakness- CT Head with 3cm calcified meningioma, otherwise negative, given tPA in ER. MRI brain revealed right thalamus 1.5cm acute infarct. Continues to have left sided facial drooping with left sided weakness. On Plavix and ASA. Carotid US revealed nonobstructive disease bilaterally. echocardiogram showed normal left ventricular size and systolic function, ejection fraction 60 percent, left atrium is in the upper normal limit in size. Pulmonary artery pressure is normal. HETAL didn't show any abnormality, continue on current treatment, no arrhythmia detected, status post Reveal implant, continue to monitor [id number] (Plavix metabolism test) pending. Sinus tachycardia with PVC's, better, continue to monitor heart rate and blood pressure Hypertension, mildly elevated. I will increase Zestril to 20mg daily and continue to monitor. Hyperlipidemia, on Lipitor. Monitor lipids Hx meningioma- CT head revealed 3cm calcified meningioma. Clinical Quality Measures DVT/VTE Risk/Contraindication: Risk Factor Score Per Nursin RFS Level Per Nursing on Admit: 4+=Very High CRISS IBARRA Sep 24, 2016 08:16
--- NOTE | 2016-09-24 08:17 | PM & R (SOAP) Progress Note ---
Subjective Subjective/Events-last exam Patient was seen in her room this AM Has progressed well Patient indicates that she will f/u with DR Ramy Moses now that DR Martell has retired. Objective Exam Last Set of Vital Signs Vital Signs Date Time Temp Pulse Resp B/P Pulse Ox O2 Delivery O2 Flow Rate FiO2 09/24/16 05:16 97.8 71 16 152/78 98 Room Air Capillary Refill : I&O Intake and Output 09/24/16 00:00 Intake Total 930 ml Balance 930 ml Intake Oral 930 ml # Voids 12 # Bowel Movements 6 General: Alert, Oriented X3, Cooperative, No Acute Distress HEENT: Atraumatic, PERRLA, EOMI, Mucous Memb Moist/[place] Neck: Supple, No JVD Lungs: Clear to Auscultation Heart: Regular Rate, Normal S1, Normal S2 Abdomen: Normal Bowel Sounds, Soft, No Tenderness Extremities: No Clubbing, No Cyanosis, No Edema Skin: No Rashes, No Breakdown Neuro: Normal Speech, Other (left side weakness in the lower extremity more than the upper extremity, mild facial droop) Results Lab Laboratory Tests 09/23/16 12:05: Assessment/Plan Assessment Rt lacunar thalamic infarct with mild left HP s/p TPA HTN meds being adjusted Sinus tach improved Plan Discharge today to home with C F/U with DR Shay Moses See orders DEANNA KENDALL MD Sep 24, 2016 08:17
[2016-09-24] MEDS ORDERED: CLOP75TA28 PO (08:22)
[2016-09-24] MEDS ORDERED: ASPI-983 PO (08:22)
[2016-09-24] MEDS ORDERED: LISI10TA2 PO (08:22)
[2016-09-24] MEDS ORDERED: METO50TA2 PO (08:22)
[2016-09-24] MEDS ORDERED: ATOR20TA66 PO (08:22)
[2016-09-24] MEDS: meTOprolol TARTRATE 50 MG (LOPRESSOR) TAB PO SCH (09:07)
[2016-09-24] MEDS: ASPIRIN E.C. 81 MG (ECOTRIN) TAB PO SCH (09:07)
[2016-09-24] MEDS: DOCUSATE SODIUM 100 MG (COLACE) CAP PO SCH (09:07)
[2016-09-24] MEDS: HYDROCHLOROTHIAZIDE 25 MG (HCTZ) TAB PO SCH (09:07)
[2016-09-24] MEDS: lisINopril 10 MG (PRINIVIL) TAB PO SCH (09:08)
[2016-09-24] MEDS: CLOPIDOGREL 75 MG (PLAVIX) TABLET PO SCH (09:08)
[2016-09-24] MEDS: NAPROXEN 250 MG (NAPROSYN) TABLET PO SCH (09:08)
--- NOTE | 2016-09-24 10:13 | Occupational Ther Daily Note ---
OT Current Status-Daily Note Subjective Pt seen in room, getting ready for DC to home today. No pain mentioned. Appearance Alert, cooperative Mental Status/Objective Functional [place] Measure 0=Not Assessed/NA 4=Minimal Assistance 1=Total Assistance 5=Supervision or Setup 2=Maximal Assistance 6=Modified [place] 3=Moderate Assistance 7=Complete [place] ADL-Treatment Functional [place] Measure 0=Not Assessed/NA 4=Minimal Assistance 1=Total Assistance 5=Supervision or Setup 2=Maximal Assistance 6=Modified [place] 3=Moderate Assistance 7=Complete IndependenceIRFPAI Quality Coding Scale 6 Independent with activity with or without an assistive device 5 Patient requires set up or clean up by helper. Patient completes activity by themselves 4 Supervision or touching assist (CGA). [place] provide cues , steadying assist 3 The helper provides less than half the effort to complete the activity 2 The helper provides more than half the effort to complete the activity 1 Dependent. The helper does all the effort to complete an activity 7 Patient refused to complete or attempt activity 9 The patient did not perform the activity before the current illness or injury 88 Not attempted due to Medical conditions or safety concerns Other Treatment Pt provided with written home coordination and strengthening program. Reviewed all the elements and pt verbalized understanding or return demonstrated each one. UE strength 4+/5 bilat except 4/5 L shoulder flexion and demonstrated weakness with theraband exercises. All questions answered. Pt would benefit from continued OT for strengthening and coordination. See tx plan for goals met. DC OT OT Short Term Goals Short Term Goals Time Frame: Sep 19, 2016 Grooming(FIM): 5 (met) Upper Body Dressing(FIM): 5 (met) Lower Body Dressing(FIM): 5 (met) Toileting(FIM): 5 (met) Transfers (B,C,W/C) (FIM): 4 (met 09/14/16) Toilet/Commode Transfer(FIM): 5 (met) Additional Short Term Goals: 2-Verbalize Understanding, 3-ImproveStrength/Laurence 1=Demonstrate adherence to instructed precautions during ADL tasks. 2=Patient will verbalize/demonstrate understanding of assistive devices/ modifications for ADL. 3=Patient will improve strength/tolerance for activity to enable patient to perform ADL's. OT Fci Goals Fci Goals Time Frame: Oct 04, 2016 Eating (FIM): 6 (Met 09-23-16) Eating (QC): 6 (Met 09-23-17) Oral Hygiene (QC): 6 (Met 09-23-16) Grooming(FIM): 6 (Met 09-23-16) Bathing(FIM): 6 (Met 09-23-16) Shower/Bathe Self (QC): 6 (Met 09-23-16) Upper Body Dressing(FIM): 6 (Met 09-23-16) Upper Body Dressing (QC): 6 (Met 09-23-16) Lower Body Dressing(FIM): 6 (Met 09-23-16) Lower Body Dressing (QC): 6 (Met 09-23-16) On/Off Footwear (QC): 6 (Met 09-23-16) Toileting(FIM): 6 (Met 09-23-16) Toileting Hygiene (QC): 6 (Met 09-23-16) Toilet/Commode Transfer(FIM): 6 (Met 09-23-16) Toilet/Commode Transfer (QC): 6 (Met 09-23-16) Shower Transfer(FIM): 6 (Not met. is SBA) Comprehension(FIM): 6 (MET) Expression (FIM): 6 (MET) Social Interaction(FIM): 6 (MET) Problem Solving(FIM): 6 (MET) Memory(FIM): 6 (MET) Increase bilat UE strength to 5/5 - strength improved but not at 5/5 Additional Goals: 2-Verbalize Understanding, 3-ImproveStrength/Laurence 1=Demonstrate adherence to instructed precautions during ADL tasks. 2=Patient will verbalize/demonstrate understanding of assistive devices/ modifications for ADL. 3=Patient will improve strength/tolerance for activity to enable patient to perform ADL's. OT Education/Plan Problem List/Assessment Pt would benefit from skilled OT to increase her independence in basis self care to allow her to return home to live safely with after CVA with L sided weakness and incoordination, decr functional mobility with all impact her self care abilities Discharge Recommendations Plan/Recommendations: Discharge/Goals Met (see tx plan for goals met) Treatment Plan/Plan of Care Patient would benefit from OT for education, treatment and training to promote independence in ADL's, mobility, safety and/or upper extremity function for ADL' s. Plan of Care: ADL Retraining, Functional Mobility, Group Exercise/Act as Ind ( education, exercise, activity tolerance, coordination, functional activities, balance), UE Funct Exercise/Act, UE Neuromus Re-Ed/Coord Treatment Duration: Oct 04, 2016 Visits Per Week: 10-11 Minutes/Day (M-F): 75-90 Minutes/Day (Sat/[place]): 75-90 Rehab Potential: Good Time/GCodes Start Time: 09:45 Stop Time: 10:00 Total Time Billed (hr/min): 15 Billed Treatment Time visit, 15 minutes neuromotor CAMPBELL CHOPRA OT Sep 24, 2016 10:13
--- NOTE | 2016-09-24 10:20 | Therapy Team Discharge Summary ---
Therapy Discharge Summary Discharge Recommendations Date of Discharge September 24, 2016 Therapy D/C Recommendations: Occupational Therapy Home Care Occupational Therapy Pt seen for skilled OT after CVA with resultant L sided weakness and incoordination. On admission she needed CGA for upper and lower body dressing and toileting, setup for bathing, grooming and eating. By discharge she was modified independent with all ADLs (with FWW for balance) except SBA for shower transfer. Equipment used included FWW, bedside commode over toilet, grab bars, shower bench, hand held shower. See tx plan for goals met. Pt would benefit from continued OT at home. DC OT PT Detention Goals Detention Goals PT Degree Clerk Goals Time Frame: Oct 03, 2016 Transfers (B,C,W/C) (FIM): 6 Roll Left to Right (QC): 6 Sit to Lying (QC): 6 Lying-Sitting on Side/Bed(QC): 6 Sit to Stand (QC): 6 Chair/Khr-hp-Nuueg Xfer(QC): 6 Car Transfer (QC): 5 Does the Patient Walk: Yes Gait (FIM): 6 Gait distance (FIM): 3=150 ft Walk 10 feet (QC): 6 Walk 10ft-Uneven Surface(QC): 6 Walk 50ft with 2 Turns (QC): 6 Walk 150 ft (QC): 6 Gait Level of Assist: 6 Gait Assistive Device: FWW Does the Pt use WC or Scooter?: No Stairs (FIM): 5 # of Steps: 8 1 Step (curb) (QC): 6 4 Steps (QC): 6 12 Steps (QC): 88 Stairs Level Of Assist: 6 Picking up an Object (QC): 5 OT Degree Clerk Goals Degree Clerk Goals Time Frame: Oct 04, 2016 Eating (FIM): 6 (Met -30-17) Eating (QC): 6 (Met -30-17) Oral Hygiene (QC): 6 (Met -30-17) Grooming(FIM): 6 (Met -30-17) Bathing(FIM): 6 (Met -30-17) Shower/Bathe Self (QC): 6 (Met -30-17) Upper Body Dressing(FIM): 6 (Met 1-30-17) Upper Body Dressing (QC): 6 (Met 1-30-17) Lower Body Dressing(FIM): 6 (Met 17) Lower Body Dressing (QC): 6 (Met 17) On/Off Footwear (QC): 6 (Met 09-23-) Toileting(FIM): 6 (Met 09-23-17) Toileting Hygiene (QC): 6 (Met 09-23-17) Toilet/Commode Transfer(FIM): 6 (Met 09-23-16) Toilet/Commode Transfer (QC): 6 (Met 09-23-16) Shower Transfer(FIM): 6 (Not met. is SBA) Comprehension(FIM): 6 (MET) Expression (FIM): 6 (MET) Social Interaction(FIM): 6 (MET) Problem Solving(FIM): 6 (MET) Memory(FIM): 6 (MET) Increase bilat UE strength to 5/5 - strength improved but not at 5/5 Additional Goals: 2-Verbalize Understanding, 3-ImproveStrength/Laurence 1=Demonstrate adherence to instructed precautions during ADL tasks. 2=Patient will verbalize/demonstrate understanding of assistive devices/ modifications for ADL. 3=Patient will improve strength/tolerance for activity to enable patient to perform ADL's. Speech Degree Clerk Goals Detention Goals 1. The patient will demonstrate increased articulatory precision (as independently reported by patient) for improved verbal communication. Time Frame: Two Weeks Comprehension: 6 (MET) Expression: 6 (MET) Social Interaction: 6 (MET) Problem Solvin (MET) Memory: 6 (MET) CAMPBELL CHOPRA OT Sep 24, 2016 10:20
--- NOTE | 2016-09-24 11:24 | Therapy Team Discharge Summary ---
Therapy Discharge Summary Discharge Recommendations Date of Discharge Therapy D/C Recommendations: Occupational Therapy Home Care Physical Therapy Came to rehab with CVA, weakness, abnormal gait. Upon admission, patient performs bed mobility with Bar[place] to modA, and tranfers with min assist, ambulated 50-150' with a rolling walker with CGA, and could go up and down 1 step using a rolling walker with mod A. Patient has been performing bed mobility and transfer training, balance and endurance training, functional strengthening, stair training, gait training, and education. 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 Now, patient performs bed mobility and transfers with mod I, ambulates 200' with a rolling walker with mod I (including 10' over and uneven surface like carpet and 50' with at least 2 turns of 90 degrees), and can go up and down 5 steps using 1 handrail with standby assist. Patient is being discharged from this facility today and will be discharged from PT at this time. PT Nursing Home Goals Stripe Marker Goals PT Nursing Home Goals Time Frame: Oct 03, 2016 Transfers (B,C,W/C) (FIM): 6 Roll Left to Right (QC): 6 Sit to Lying (QC): 6 Lying-Sitting on Side/Bed(QC): 6 Sit to Stand (QC): 6 Chair/Xmv-sb-Bfqcp Xfer(QC): 6 Car Transfer (QC): 5 Does the Patient Walk: Yes Gait (FIM): 6 Gait distance (FIM): 3=150 ft Walk 10 feet (QC): 6 Walk 10ft-Uneven Surface(QC): 6 Walk 50ft with 2 Turns (QC): 6 Walk 150 ft (QC): 6 Gait Level of Assist: 6 Gait Assistive Device: FWW Does the Pt use WC or Scooter?: No Stairs (FIM): 5 # of Steps: 8 1 Step (curb) (QC): 6 4 Steps (QC): 6 12 Steps (QC): 88 Stairs Level Of Assist: 6 Picking up an Object (QC): 5 OT Stripe Marker Goals Stripe Marker Goals Time Frame: Oct 04, 2016 Eating (FIM): 6 (Met 30-17) Eating (QC): 6 (Met 30-17) Oral Hygiene (QC): 6 (Met 09-23-17) Grooming(FIM): 6 (Met 09-23-16) Bathing(FIM): 6 (Met 09-23-16) Shower/Bathe Self (QC): 6 (Met 09-23-16) Upper Body Dressing(FIM): 6 (Met 09-23-16) Upper Body Dressing (QC): 6 (Met 09-23-16) Lower Body Dressing(FIM): 6 (Met 09-23-16) Lower Body Dressing (QC): 6 (Met 09-23-16) On/Off Footwear (QC): 6 (Met 09-23-16) Toileting(FIM): 6 (Met 09-23-16) Toileting Hygiene (QC): 6 (Met 09-23-16) Toilet/Commode Transfer(FIM): 6 (Met 09-23-16) Toilet/Commode Transfer (QC): 6 (Met 09-23-16) Shower Transfer(FIM): 6 (Not met. is SBA) Comprehension(FIM): 6 (MET) Expression (FIM): 6 (MET) Social Interaction(FIM): 6 (MET) Problem Solving(FIM): 6 (MET) Memory(FIM): 6 (MET) Increase bilat UE strength to 5/5 - strength improved but not at 5/5 Additional Goals: 2-Verbalize Understanding, 3-ImproveStrength/Laurence 1=Demonstrate adherence to instructed precautions during ADL tasks. 2=Patient will verbalize/demonstrate understanding of assistive devices/ modifications for ADL. 3=Patient will improve strength/tolerance for activity to enable patient to perform ADL's. Speech Stripe Marker Goals Nursing Home Goals 1. The patient will demonstrate increased articulatory precision (as independently reported by patient) for improved verbal communication. Time Frame: Two Weeks Comprehension: 6 (MET) Expression: 6 (MET) Social Interaction: 6 (MET) Problem Solvin (MET) Memory: 6 (MET) MIREYA CORREIA PT Sep 24, 2016 11:24
[2016-09-24 13:04] VITALS: BP 152/78
[2016-09-25] MEDS ORDERED: lisINopril 20 MG (ZESTRIL) TAB PO SCH (09:00)
[2016-09-30 07:58] LABS: CYP2C19 SPEC Whole Blood
[2016-09-30 07:59] LABS: CYP2C19 PHENOTYPE INTERP Normal
--- NOTE | 2016-10-25 11:17 | DISCHARGE SUMMARY ---
DATE OF ADMISSION: 09/12/2016 DATE OF DISCHARGE: 09/24/2016 HISTORY OF PRESENT ILLNESS: The patient is a 71-year-old female with past medical history significant for meningioma and hypertension, who had been independent prior to this and living with her spouse in [place], who was admitted on 09/10 to the ICU after receiving TPA for CVA with left-sided weakness. Her symptoms improved over time but she was left with some residual. She did have a small amount of facial droop. She was able to pass swallow evaluation the next day. MRI on 09/11 showed a small right thalamic acute infarct as well as a stable of meningioma for which she is to follow as an outpatient. She received potassium and magnesium replacement while on the ICU under the care of Dr. Chu and Dr. Emerson, hospitalist service. She was started on a statin. An echo was done without evidence of vegetation. She was referred to Inpatient Rehabilitation Unit for ongoing stroke rehabilitation due to a decline in functional independence. PAST MEDICAL HISTORY: 1. Meningioma. 2. Hyperlipidemia. 3. Hyperkalemia. 4. Hypertension. 5. She had been caring for her 93-year-old mother who resides at an assisted living facility and performs much of her care and transportation. MEDICAL COURSE: The patient was followed by Dr. Chu, Dr. Owens and Dr. Emerson while on rehab unit. Medications were adjusted for blood pressure. She did have a Reveal device implantation with Dr. Chu on 09/17 while on the rehab unit, The patient had a HETAL with Dr. Chu on 09/16 revealing no cardiac source of embolization noted, normal left ventricular size and systolic function. Ejection fraction estimated to be 60% and mild mitral and tricuspid regurgitation. The patient's sinus tachycardia was managed with medication by Dr. Chu. Pulse upon discharge on 09/24 was 71, respirations 16. Blood pressure 152/78, O2 sat 98% on room air. She was afebrile during her stay. CBC on 09/16 showed WBC 9.3, hemoglobin and hematocrit 12.7/38, platelet count 302,000. Chemistry on 09/16 showed normal electrolytes, BUN and creatinine, glucose was mildly elevated at 121, total protein 5.7, albumin 3.4. Her [id number] genotype was negative done for evaluation of effective Plavix use. REHABILITATION COURSE: She progressed well with her therapy. She had increased strength and endurance. Physical therapy notes upon admission, the patient performed bed mobility with min assist to mod assist and transfers with min assist and could ambulate 50 feet to 150 feet with a wheeled walker with contact guard. The patient made good progress and upon discharge, the patient is modified independent for bed mobility and transfers, and could ambulate 200 feet with a rolling walker and can go up and down 5 steps using one hand rail with standby assist. Speech therapy notes upon admission to rehab unit, the patient demonstrated mild dysarthria characterized by left labial weakness. The patient met all speech therapy goals and intelligibility was much improved. It was not felt that she would need ongoing outpatient speech therapy. OT notes upon admission, she was contact guard for dressing and toileting, set-up for bathing, grooming and eating. By discharge she was modified independent with all ADLs with a front wheel walker for balance except standby assist for shower transfers. Equipment used included front wheel walker, bedside commode over toilet, grab bar, shower bench, hand-held shower. The patient would benefit from continued/OT at home. DISCHARGE INSTRUCTIONS: The patient will have follow-up with our new PCP, Dr. Karsten Moses, as her former PCP has retired from palpation services. The patient will have home health care, continue current diet. DISCHARGE MEDICATIONS: 1. ASA 81 mg p.o. daily. 2. Lipitor 20 mg p.o. at bedtime. 3. Plavix 75 mg p.o. daily. 4. Lisinopril 10 mg p.o. daily. 5. Toprol 50 mg p.o. b.i.d. 6. Hydrochlorothiazide 25 mg p.o. daily. 7. Aleve to 20 mg p.o. daily. DISCHARGE DIAGNOSES: 1. Rehabilitation ambulatory dysfunction secondary to right thalamic infarct with resulting left hemiplegia, left facial droop, all improving. 2. Meningioma stable. 3. Hypertension, controlled with medication. 4. Hypokalemia corrected. 5. Hyperlipidemia, on statin. 6. Sinus tachycardia, corrected with medication. 7. PVC, status post Reveal device implantation. 8. Status post HETAL with results as per above with Dr. Chu. CONDITION AT DISCHARGE: Improved and stable. PROGNOSIS: Rehab prognosis appears good for continued improvement at home with home health care with her family to assist as needed. Job ID: [id number] Dictated Date: 10/24/2016 08:38:45 Pairer Odds Date: 10/25/2016 11:00:43/rianna GODFREY
== END 2016-09-24 13:00 | disposition home health service (06) | DRG 42 ==
PROVIDERS: ADMIT Physical Medicine & Rehabilitation; ATTEND Physical Medicine & Rehabilitation
PROC: 0JH602Z Insertion of Monitoring Device into Chest Subcutaneous Tissue and Fascia, Open Approach (ICD-10-PCS; principal; 2016-09-17)
DX: I69.354 Hemiplegia and hemiparesis following cerebral infarction affecting left non-dominant side (principal); I69.392 Facial weakness following cerebral infarction; D32.0 Benign neoplasm of cerebral meninges; I10 Essential (primary) hypertension; E87.6 Hypokalemia; E78.5 Hyperlipidemia, unspecified; R00.0 Tachycardia, unspecified; I49.3 Ventricular premature depolarization; Z23 Encounter for immunization
CPT/HCPCS: 33282; 36415; 80053; 81225; 85025; 85027; 85610; 85730; 93005

== ENCOUNTER 2016-12-13 13:00 | Outpatient (RCR) | payer MEDICARE ==
--- OUTSIDE RECORDS SUMMARY | 2016-10-09 10:43 | XMS REPORT | Continuity of Care Document ---
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 Engineer Name Role Phone NO, LOCAL PHYSICIAN PCP Unavailable Insurance Providers Payer Name Policy Number Subscriber Name Relationship Wps Medicare [id number] Elidia Zuleta 18 Self / Same As Patient Blue Cross [facility] Supp [id number] Elidia Zuleta 18 Self / Same As Patient Advance Directives Directive Response Recorded Date/Time Advance Directives No 09/10/16 5:55pm Health Care Power of Assistant Family Teacher No 09/10/16 5:55pm Organ Donor Yes 09/10/16 [...] - 99.5) 09/12/2016 8:25am Temperature (Calculated Celsius) 36.35473 degrees C (36.4 - 37.5) 09/12/2016 8:25am [...] 5.00 inches 09/10/2016 5:55pm Height (Calculated Centimeters) 165.384922 cm 09/10/2016 5:55pm Weight (Pounds) 171 pounds 09/12/2016 6:00am Weight (Ounces) 5.0 oz 09/12/2016 6:00am Weight (Calculated Grams) 01601.044 gm 09/12/2016 6:00am Weight (Calculated Kilograms) 77.768427 kilograms 09/12/2016 6:00am Calculated BMI 28.5 09/10/2016 [...] SELECTED GROUPS OF HIGH RISK PATIENTS. [employer] CONSENSUS CONFERENCE ON [...] MG/DL 5-40 09/11/2016 4:25am 09/11/2016 5:10am [facility] [place] Testing 1.48 UIU/ML 0.35-4.94 09/10/2016 1:33pm 09/10/2016 6:17pm Procedures Procedure Status Date Provider(s) Tracing only of electrocardiogram Completed 09/10/16 ISABEL HARRIS MD Color Doppler echocardiography Completed 09/11/16 AMILCAR POWELL MD Encounters Encounter Location Arrival/Admit Date Discharge/Depart Date Attending Provider Admitted Inpatient [facility] 09/10/16 4:49pm AMILCAR POWELL MD Recent Diagnosis CVA (cerebral vascular accident) Hypertensive emergency Left-sided weakness
[~2016-12-13 13:00] MED LIST changes: +ATEN100T PO; +LISI10TA2 PO; +METO50TA2 PO
== END 2016-12-13 13:44 | disposition home or self-care (01) ==
PROVIDERS: ATTEND Family Medicine
DX: I69.354 Hemiplegia and hemiparesis following cerebral infarction affecting left non-dominant side (principal)

== ENCOUNTER 2017-05-22 10:33 | Outpatient (RCR) | payer MEDICARE | END 2017-05-24 | disposition home or self-care (01) | PROVIDERS: ATTEND Family Medicine | DX: I69.354 Hemiplegia and hemiparesis following cerebral infarction affecting left non-dominant side (principal); M62.81 Muscle weakness (generalized); R26.81 Unsteadiness on feet ==

== ENCOUNTER 2017-05-30 11:00 | Outpatient (RCR) | payer MEDICARE | END 2017-05-30 12:24 | disposition home or self-care (01) | PROVIDERS: ATTEND Family Medicine | DX: I69.354 Hemiplegia and hemiparesis following cerebral infarction affecting left non-dominant side (principal) ==

== ENCOUNTER → 2017-12-24 | Outpatient (RCR) | payer MEDICARE ==
[~2017-12-24] MED LIST changes: +METO50TA15 PO; -METO50TA2 PO
== END | disposition home or self-care (01) ==
LOC: CR3 11-24 13:30
PROVIDERS: ATTEND Family Medicine
DX: Z29.8 Encounter for other specified prophylactic measures (principal)

== ENCOUNTER 2018-01-23 17:41 | Outpatient (RCR) | payer MEDICARE | END 2018-01-24 | disposition home or self-care (01) | LOC: CR3 17:41 | PROVIDERS: ATTEND Family Medicine | DX: Z29.8 Encounter for other specified prophylactic measures (principal) ==

== ENCOUNTER 2018-02-23 16:38 | Outpatient (RCR) | payer MEDICARE | END 2018-02-25 | disposition home or self-care (01) | LOC: CR3 16:38 | PROVIDERS: ATTEND Family Medicine | DX: Z29.8 Encounter for other specified prophylactic measures (principal) ==

== ENCOUNTER 2018-03-25 11:36 | Outpatient (RCR) | payer MEDICARE | END 2018-03-26 | disposition home or self-care (01) | LOC: CR3 11:36 | PROVIDERS: ATTEND Family Medicine | DX: Z29.8 Encounter for other specified prophylactic measures (principal) ==

== ENCOUNTER 2018-04-24 14:20 | Outpatient (RCR) | payer MEDICARE | END 2018-04-25 | disposition home or self-care (01) | LOC: CR3 14:20 | PROVIDERS: ATTEND Family Medicine | DX: Z29.8 Encounter for other specified prophylactic measures (principal) ==

== ENCOUNTER 2018-05-27 11:34 | Outpatient (RCR) | payer MEDICARE | END 2018-05-28 | disposition home or self-care (01) | LOC: CR3 11:34 | PROVIDERS: ATTEND Family Medicine | DX: Z29.8 Encounter for other specified prophylactic measures (principal) ==

== ENCOUNTER 2018-06-26 11:19 | Outpatient (RCR) | payer MEDICARE | END 2018-06-27 | disposition home or self-care (01) | LOC: CR3 11:19 | PROVIDERS: ATTEND Family Medicine | DX: Z29.8 Encounter for other specified prophylactic measures (principal) ==

== ENCOUNTER 2018-07-15 11:07 | Outpatient (RCR) | payer MEDICARE | END 2018-07-29 | disposition home or self-care (01) | LOC: CR3 11:07 | PROVIDERS: ATTEND Family Medicine | DX: Z29.8 Encounter for other specified prophylactic measures (principal) ==

== ENCOUNTER 2022-05-08 21:42 | Emergency (ER) | payer MEDICARE ==
[~2022-05-08 21:42] MED LIST changes: +ASPI-1238 PO; -ASPI-983 PO; -LISI10TA2 PO; +LISI10TA25 PO
--- NOTE | 2022-05-08 22:24 | ED EENT ---
History of Present Illness General Chief Complaint: Nasal Problems Stated Complaint: NOSE BLEED Nursing Triage Note: TO ED VIA POV AND AMBULATORY TO ROOM 7 WITH PERSONAL WALKER AND C/O RIGHT SIDE NARE NOSE BLEED SINCE 2099. PT STATES, "OF COURSE I'M ON A BLOOD THINNER I HAD A STROKE". PT DOES NOT KNOW WHAT MEDICINES SHE TAKES NOR CAN SHE PROVIDE A LIST OF MEDS. Source: patient Exam Limitations: no limitations History of Present Illness Date Seen by Provider: May 08, 2022 Time Seen by Provider: 22:23 Allergies and Home Medications Allergies Uncoded Allergies: MINT (Allergy, Mild, 09/10/16) REPORTS BEING UNABLE TO TOLERATE MINT OR MEDICATION WITH MINT FLAVORING Patient Home Medication List Aspirin (Aspirin EC) 81 Mg Tablet.dr, 81 MG PO DAILY Prescribed by: DEANNA KENDALL on 09/24/16821 Atorvastatin Calcium (Atorvastatin Calcium) 20 Mg Tablet, 20 MG PO HS Prescribed by: DEANNA KENDALL on 09/24/16821 Clopidogrel Bisulfate (Clopidogrel) 75 Mg Tablet, 75 MG PO DAILY Prescribed by: DEANNA KENDALL on 09/24/16821 Hydrochlorothiazide (Hydrochlorothiazide) 25 Mg Tablet, 25 MG PO DAILY, (Reported) Entered as Reported by: ANGELO RAMOS on 09/11/16 1504 Lisinopril (Lisinopril) 10 Mg Tablet, 10 MG PO DAILY Prescribed by: DEANNA KENDALL on 09/24/16821 Metoprolol Tartrate (Metoprolol Tartrate) 50 Mg Tablet, 50 MG PO BID Prescribed by: DEANNA KENDALL on 09/24/16821 Naproxen Sodium (Aleve) 220 Mg Tablet, 220 MG PO DAILY, (Reported) Entered as Reported by: ANGELO RAMOS on 09/11/16 1526 Past Xnpsjcz-Omhvjf-Vukilc Hx Patient Social History Tobacco Use?: No Substance use?: No Alcohol Use?: No Immunizations Up To Date COVID19 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 Seasonal Allergies Seasonal Allergies: No Past Medical History Surgeries: Yes Renal Respiratory: No Currently Using CPAP: No Currently Using BIPAP: No Cardiac: Yes (CVA) Hypertension Neurological: Yes (BRAIN TUMOR) Brain Tumor Female Reproductive Disorders: Denies Genitourinary: Yes Kidney Stones Gastrointestinal: Yes Chronic Constipation Musculoskeletal: No Arthritis Endocrine: No HEENT: Yes (BILAT CATARCT) Cataract Cancer: No Psychosocial: No Integumentary: No Eczema Blood Disorders: No Adverse Reaction/Blood Tranf: No Physical Exam Vital Signs Vital Signs - First Documented 05/08/22 21:57 Temp 37.0 Pulse 75 Resp 20 B/P (MAP) 203/108 (139) Pulse Ox 98 O2 Delivery Room Air Height, Weight, BMI Height: 5'5.00" Weight: 173lbs. 5.0oz. 78.654378bj; 28.5 BMI Method:Stated Progress/Results/Core Measures Results/Orders My Orders Orders - KATERIN CHAIDEZ APRN Phenylephrine 0.5% Nasal [place] ([place]ier-Syne (05/08/22 22:30) Tranexamic Acid Injection (Cyklokapron I (05/08/22 22:30) Phenylephrine 0.25% Nasal Spra ([place]ier-Syne (05/08/22 22:45) Phenylephrine 0.25% Nasal Spra ([place]ier-Syne (05/08/22 22:33) Medications Given in ED Current Medications Medications Dose Ordered Sig/Martha Route Start Time Stop Time Status Last Admin Dose Admin Phenylephrine HCl 15 ml STK-MED ONCE NS 05/08/22 22:33 05/08/22 22:36 DC 05/08/22 22:36 15 ML Tranexamic Acid ONCE ONCE NA 05/08/22 22:30 05/08/22 22:31 DC 05/08/22 22:35 1,000 MG Vital Signs/I&O 05/08/22 21:57 Temp 37.0 Pulse 75 Resp 20 B/P (MAP) 203/108 (139) Pulse Ox 98 O2 Delivery Room Air Blood Pressure Mean: 139 Departure Impression Primary Impression: Nasal bleeding Disposition: 01 HOME, SELF-CARE Condition: Improved Departure-Patient Inst. Decision time for Depature: 23:04 Referrals: NICO KABA MD (PCP/Family) Primary Care Physician Patient Instructions: Nosebleeds ED Add. Discharge Instructions: Plan: 1. Discharge home. Keep the head higher than the level of the heart, elevate your head on several pillows or sleep in recliner tonight. Stay upright, do not lie down. 2. If your symptoms return: You can hold hold the nose for at least five minutes. Repeat if necessary 3. Apply ice to the nose 4. Pinch all the soft parts of the nose together between the thumb and index finger 5. Blow nose as little as possible and only very gently 6. Keep the house humidified, you can buy humidifier. You can also use saline mist. 7. Follow the instructions that come with nasal decongestants overusing can cause nosebleeds 8. Return to ER for any new, concerning, or worsening symptoms. All discharge instructions reviewed with patient and/or family. Voiced understanding. KATERIN CHAIDEZ TERRITORY SERVICE REPRESENTATIVE May 08, 2022 22:24
[2022-05-08] MEDS ORDERED: TRANEXAMIC ACID 100 MG/ML 10 ML INJECTION ONE (22:30)
[2022-05-08] MEDS ORDERED: PHENYLEPHRINE 0.5% NASAL SPR (NEO-SYNEPHRINE) REG ONE (22:30)
[2022-05-08] MEDS ORDERED: PHENYLEPHRINE 0.25% NASAL SPR (NEO-SYNEPHRINE) 15 ML NS ONE ×2 (22:33→22:45)
[2022-05-08 23:15] VITALS: BP 156/78
== END 2022-05-08 23:15 | disposition home or self-care (01) ==
LOC: EDUNIT# 21:42 → ER 21:44
DX: R04.0 Epistaxis (principal)
CPT/HCPCS: 99284